=== PATIENT | male | born 1975 | race Caucasian/White ===

== ENCOUNTER 2017-06-24 13:32 | Inpatient (IN) | payer MEDICAID ==
[~2017-06-24] VITALS: Ht 165.1 cm; Wt 45.8 kg
--- NOTE | 2017-06-24 13:32 | NUR ---
Patient BIBA BLS, transferred to bed 4. RN evaluating patient at bedside.
[2017-06-24 13:38] VITALS: BP 148/87
--- NOTE | 2017-06-24 13:38 | NUR ---
Dr. Jimenez evaluating patient at bedside.
--- NOTE | 2017-06-24 13:41 | NUR ---
Patient being evaluated by DR LOUIS at bedside.
[2017-06-24] MEDS ORDERED: NACL 0.9% 1,000 ML IV ONE ×3 (13:50→15:05)
--- NOTE | 2017-06-24 14:02 | NUR ---
LAB AT BEDSIDE
--- NOTE | 2017-06-24 14:13 | NUR ---
technical business analyst at bedside.
[2017-06-24 14:17] LABS: HEMATOCRIT 33.2 % (36-52); MEAN CORPUSCULAR HEMOGLOBIN 27 pg (27-31); MEAN CORPUSCULAR HGB CONC 33 g/dL (33-37); MEAN CORPUSCULAR VOLUME 82 fL (80-94); PLATELET COUNT (AUTO) 229 K/uL (140-450); RED BLOOD CELL COUNT(AUTO) 4.05 MIL/uL (4.20-6.10); RED CELL DISTRIBUTION WIDTH 13.1 % (11.6-13.7); WHITE BLOOD COUNT (AUTO) 11.2 K/uL (4.8-10.8)
[2017-06-24 14:33] LABS: ACETONE, SERUM NEGATIVE (NEGATIVE)
[2017-06-24 14:47] LABS: ALBUMIN 2.7 g/dL (3.4-5.0); ANION GAP 12.8 (8-16); ASPARTATE AMINOTRANSFERASE 44 U/L (15-37); CARBON DIOXIDE 26.8 mmol/L (21-32); CHLORIDE 103 mmol/L (98-107); GFR ARICAN-AMERICAN 106 mL/min (>90); POTASSIUM 4.6 mmol/L (3.5-5.1); SODIUM SERUM 138 mmol/L (136-145); TOTAL BILIRUBIN 0.2 mg/dL (0.0-1.0); UREA NITROGEN, BLOOD 15 mg/dL (7-18)
[2017-06-24 14:48] LABS: GLUCOSE 581 mg/dL (74-106)
[2017-06-24 14:49] LABS: LYMPHOCYTES % (MANUAL) 14 % (20-46); MONOCYTES % (MANUAL) 3 % (5-12)
[2017-06-24] MEDS ORDERED: VANCOMYCIN 1,000 MG in DEXTROSE 5% 250 ML IV ONE (15:05)
[2017-06-24] MEDS ORDERED: LEVOFLOXACIN 750 MG/D5W PREMIX 150 ML IV ONE (15:05)
[2017-06-24 15:10] LABS: APPEARANCE,URINE CLEAR (CLEAR); BILIRUBIN,URINE NEGATIVE (NEGATIVE); BLOOD, URINE 1+ (NEGATIVE); COLOR,URINE YELLOW (YELLOW); LEUKOCYTE ESTERASE ,URINE NEGATIVE (NEGATIVE); NITRITE, URINE NEGATIVE (NEGATIVE); UGLUCOSE 3+ (NEGATIVE)
[2017-06-24 15:15] LABS: BARBITURATE, URINE NEG. ng/ml (NEG <=200); BENZODIAZEPINE, URINE NEG. ng/mL (NEG <=200); CANNABINOID, URINE NEG. ng/mL (NEG <=50); COCAINE, URINE NEG. ng/mL (NEG <=300); OPIATE, URINE NEG. ng/mL (NEG <=2000); PHENCYCLIDINE SCREEN,URINE NEG. ng/mL (NEG <=25)
[2017-06-24 15:17] LABS: RBC,URINE 0-5 /HPF (0-5); WBC,URINE 0-3 /HPF (0-5)
[2017-06-24] MEDS ORDERED: VANCOMYCIN 1,000 MG VIAL ONE (15:22)
[2017-06-24] MEDS ORDERED: LORazepam 2 MG/ML VIAL IVP PRN (15:50)
[2017-06-24] MEDS ORDERED: ACETAMINOPHEN 325 MG TAB PO PRN (15:50)
[2017-06-24] MEDS ORDERED: ONDANSETRON 4 MG/2 ML VIAL IVP PRN (15:50)
[2017-06-24] MEDS ORDERED: LEVOFLOXACIN 750 MG/D5W PREMIX 150 ML IV SCH (15:50)
[2017-06-24] MEDS ORDERED: DEXT 5% /NACL 0.9% 1,000 ML IV SCH (15:50)
[2017-06-24] MEDS ORDERED: DEXTROSE 50% 50 ML SYR IVP PRN (15:50)
--- NOTE | 2017-06-24 16:09 | NUR ---
US AT BEDSIDE
--- NOTE | 2017-06-24 16:40 | NUR ---
RECEIVED REPORT FROM THE ER NURSE. WILL GET ROOM READY AND AWAIT PT'S ARRIVAL.
--- NOTE | 2017-06-24 16:46 | NUR ---
Patient will be admitted to care of DR GARAY. Admited to M/S. Will go to room 120 B. Belongings list completed. Report to EB ACEVES.
[2017-06-24 17:00] VITALS: BP 142/99
--- NOTE | 2017-06-24 17:00 | NUR ---
ARRIVED ON THE UNIT IN A WHEELCHAIR WITH 1 ER NURSE. PT IS AMBULATORY. AMBULATED FROM CHAIR TO BED. PT IS ALERT AND ORIENTED. INTRODUCED OURSELVED AND UPDATED THE BOARD. PT HAS AN IV ON L AC 20G NS BOLUS. ALSO AN IV ON THE R 20G VANCO INFUSING AT 165ML. BOTH IV ARE PATENT AND INTACT. PT C/O OF PAIN IN HIS R SHOULDER AND L LOWER BACK. PT HAS A MULTIPLE SCABS ON BLE AND BUE. THEY ARE INTACT AND HEALED OVER. HE ALSO HAS AN OPEN LACERATION ON THE PLANTAR OF L FOOT AND R FOOT. PT CLAIMS IT'S PAINFUL WHEN WALKING ON THEM. HE ALSO HAS A SCAB ON L LOWER BACK. MRSA SCREENING DONE. NOTED DR. GARAY ORDERED D5NS @ 100ML. WILL PAGE FOR CHANGE OF ORDER D/T PT'S HIGH BS. VS WITHIN NORMAL RANGE. BS 456. WILL CONTINUE WITH ADMISSION PROCESS. Addendum: 06/24/17 at 1753 by Eleonora Stark RN PUT ON YELLOW SOCKS, YELLOW GOWN, YELLOW WRIST BAND, YELLOW SIGN ON DOOR. ALLERGY BAND FOR CEPHALEXIN. BROUGHT HIM A PITCHER OF WATER AND CUP OF COFFEE REQUESTED.
[2017-06-24] MEDS: BLOOD GLUCOSE MONITORING 1 DEV DEV FS SCH ×2 (17:25→17:30)
[2017-06-24] MEDS: NACL 0.9% 1,000 ML IV SCH (18:09)
[2017-06-24] MEDS: INSULIN LISPRO SLIDING SCALE 100 UNITS/ML VIAL SUBQ PRN (18:09)
--- NOTE | 2017-06-24 18:15 | NUR ---
DR Pily JUAREZ SAW AND ASSESSED PT.
--- NOTE | 2017-06-24 19:15 | NUR ---
ENDORSED PT REPORT TO BODY SHOP MECHANIC NURSE AT BEDSIDE FOR CONTINUITY OF CARE. PT IN STABLE CONDITION.
--- NOTE | 2017-06-24 19:30 | NUR ---
RECEIVED REPORT FROM DAY SHIFT NURSE AT BEDSIDE. PT IS ALERT AND ORIENTED X4. PT IS ON ROOM AIR. SKIN NOT INTACT, RIGHT FOOT PLANTAR LACERATION/ULCER, LEFT FOOT PLANTAR LACERATION/ULCER. SALINE LOCK 18 GAUGE IV ON LEFT AC INTACT, AND 20 GAUGE IV ON RIGHT FOREARM RUNNING NS AT 100ML/HR INTACT. PT IS STABLE, THERE ARE NO SIGNS OF DISTRESS. VITAL SIGNS WNL. FAMILY AT BEDSIDE. BED IN LOW POSITION, CALL LIGHT WITHIN REACH. WILL CONTINUE TO MONITOR.
[2017-06-24] MEDS: HYDROcodone/APAP 5/325 MG 1 TAB TAB PO PRN (20:18)
--- NOTE | 2017-06-24 20:19 | NUR ---
NORCO GIVEN FOR 6/10 PAIN IN LEFT LOWER BACK. PT TOLERATED WELL. PT STABLE, FREE OF DISTRESS. BED IN LOW POSITION, CALL LIGHT WITHIN REACH. WILL CONTINUE TO MONITOR.
--- NOTE | 2017-06-24 22:51 | NUR ---
PT EXPRESSED CONCERN FOR HIS MOTHER. THEY ARE BOTH HOMELESS, AND HE HAS NO WAY OF REACHING HER. PT STATED THEY WERE LAST STAYING BEHIND A [address] AND [address]. TOLD PT I WOULD CHECK ON WHAT WE COULD DO ABOUT IT. WAREHOUSE UNLOADER NOT AVAILABLE AT NIGHT. WILL ENDORSE RECOMMENDATION FOR WAREHOUSE UNLOADER TO MORNING SHIFT RN.
[2017-06-25] VITALS: BP 140/90
--- NOTE | 2017-06-25 00:44 | NUR ---
PATIENT IS RESTING, HE IS STABLE AND FREE OF DISTRESS. BED IN LOW POSITION, CALL LIGHT WITHIN REACH. WILL CONTINUE TO MONITOR.
--- NOTE | 2017-06-25 03:50 | NUR ---
NS BAG RAN OUT AT 03:50, NEW NS BAG WAS SET UP AT 03:53 RUNNING AT 100ML/HR. PT IS STABLE, THERE ARE NO SIGNS OF DISTRESS. BED IN LOW POSITION, CALL LIGHT WITHIN REACH. WILL CONTINUE TO MONITOR.
[2017-06-25] MEDS: NACL 0.9% 1,000 ML IV SCH ×3 (03:53→17:14)
[2017-06-25 05:59] LABS: BASOPHILS # (AUTO) 0.2 K/uL (0.00-0.22); BASOPHILS % (AUTO) 2.1 % (0.0-2.0); EOSINOPHILS # (AUTO) 0.4 K/uL (0-0.4); EOSINOPHILS % (AUTO) 3.8 % (0.0-4.0); HEMATOCRIT 31.7 % (36-52); HEMOGLOBIN 10.5 g/dL (12.0-18.0); LYMPHOCYTES # (AUTO) 2.7 K/uL (2.0-11.5); LYMPHOCYTES % (AUTO) 27.5 % (20.5-51.1); MEAN CORPUSCULAR HEMOGLOBIN 27 pg (27-31); MEAN CORPUSCULAR HGB CONC 33 g/dL (33-37); MEAN CORPUSCULAR VOLUME 83 fL (80-94); MONOCYTES # (AUTO) 0.6 K/uL (0.8-1.0); MONOCYTES % (AUTO) 6.4 % (1.7-9.3); NEUTROPHILS # (AUTO) 5.9 K/uL (1.8-7.7); NEUTROPHILS % (AUTO) 60.2 % (42.2-75.2); PLATELET COUNT (AUTO) 203 K/uL (140-450); RED BLOOD CELL COUNT(AUTO) 3.84 MIL/uL (4.20-6.10); RED CELL DISTRIBUTION WIDTH 13.1 % (11.6-13.7); WHITE BLOOD COUNT (AUTO) 9.8 K/uL (4.8-10.8)
[2017-06-25 06:31] LABS: ANION GAP 9.6 (8-16); CARBON DIOXIDE 25.4 mmol/L (21-32); CREATININE 0.6 mg/dL (0.7-1.3)
[2017-06-25] MEDS: BLOOD GLUCOSE MONITORING 1 DEV DEV FS SCH ×4 (06:35→21:04)
[2017-06-25] MEDS: INSULIN LISPRO SLIDING SCALE 100 UNITS/ML VIAL SUBQ PRN ×4 (06:43→21:06)
--- NOTE | 2017-06-25 06:44 | NUR ---
PT BLOOD GLUCOSE LEVEL WAS 217, GAVE 4 UNITS OF INSULIN PER MD SLIDING SCALE. PT IS STABLE, THERE ARE NO SIGNS OF DISTRESS. BED IN LOW POSITION, CALL LIGHT WITHIN REACH. WILL CONTINUE TO MONITOR.
--- NOTE | 2017-06-25 07:20 | NUR ---
ENDORSED PATIENT TO DAY SHIFT NURSE FOR CONTINUITY OF CARE. PT STABLE, WITHOUT SIGNS OF DISTRESS.
[2017-06-25 08:00] VITALS: BP 145/91
--- NOTE | 2017-06-25 09:15 | NUR ---
PT WATCHING TV. ATE 100% OF BREAKFAST. NO COMPLAINTS AT THIS TIME. WILL CONTINUE TO MONITOR PT.
--- NOTE | 2017-06-25 10:58 | NUR ---
PT RESTING COMFORTABLY. NO SIGNS OF DISTRESS. WILL CONTINUE TO MONITOR PT.
--- NOTE | 2017-06-25 13:50 | NUR ---
CHECKED ON PT IN ROOM. PT IS SLEEPING WITH VISIBLE RESPIRATIONS. CALL LIGHT IS WITHIN REACH AND BED WHEELS LOCKED AND IN LOW POSITION. WILL CONTINUE TO MONITOR PT.
[2017-06-25 16:00] VITALS: BP 148/94
--- NOTE | 2017-06-25 16:20 | NUR ---
CHECKED ON PT. PT COMPLAINING OF HEADACHE AND PAIN LEVEL 3/10. ADMINISTERED TYLENOL ORDERED. BS WAS 208. VS ARE WNL. PT ASKED FOR URINAL AND INFORMED HIM HE HAS IT AT BEDSIDE. PT HAS NO OTHER COMPLAINTS AT THIS TIME. WILL CONTINUE TO MONITOR.
[2017-06-25] MEDS ORDERED: LEVOFLOXACIN 750 MG/D5W PREMIX 150 ML IV SCH (17:00)
--- NOTE | 2017-06-25 18:02 | NUR ---
PT RESTING COMFORTABLY, WATCHING TV. NO COMPLAINTS AT THIS TIME. LEVAQUIN STILL RUNNING. PT TOLERATING WELL. WILL CONTINUE TO MONITOR PT.
--- NOTE | 2017-06-25 19:10 | NUR ---
ENDORSED REPORT TO ENVIRONMENTAL PROFESSIONAL NURSE AT BEDSIDE FOR CONTINUITY OF CARE. PT IS AWAKE AND IN STABLE CONDITION.
[2017-06-25 20:00] VITALS: BP 155/97
--- NOTE | 2017-06-25 20:00 | NUR ---
Patient's Plan of Care was discussed and reviewed with STRIPE MARKER: TAMICA GORDILLO
[2017-06-25] MEDS: LISINOPRIL 10 MG TAB PO SCH (20:43)
--- NOTE | 2017-06-25 20:43 | NUR ---
PATIENT TOOK ROUTINE MEDS WELL.WILL CONTINUE TO MONITOR.
--- NOTE | 2017-06-25 23:07 | NUR ---
MD SOLIS CAME AND SAW THE PATIENT HE SPOKE WITH THE PATIENT AND TOOK A LOOK AT THE BOTTOM OF HIS FEET.
--- NOTE | 2017-06-26 00:55 | NUR ---
PATIENT SLEEPING IN BED IVF INFUSING WELL IV SITE PATENT CALL LIGHT WITHIN REACH.
--- NOTE | 2017-06-26 02:07 | NUR ---
PATIENT SLEEPING WELL,IVF INFUSING WELL IV SITE PATENT CALL LIGHT WITHIN REACH.
[2017-06-26] MEDS ORDERED: CLINDAMYCIN 600 MG/4 ML VIAL ONE (04:41)
[2017-06-26] MEDS: NACL 0.9% 1,000 ML IV SCH ×2 (04:51→16:13)
[2017-06-26] MEDS: CLINDAMYCIN 600 MG in DEXTROSE 5% 50 ML IV SCH ×3 (04:56→20:34)
--- NOTE | 2017-06-26 04:56 | NUR ---
PATIENT IS DOING WELL EB CORDERO GAVE CLEOCIN IV ANTIBIOTIC IV AND PATIENT ALSO COMPLAINS OF LOWER BACK PAIN SEVERE PAIN AND EB CORDERO WAS INFORMED SHE WILL MEDICATE THE PATIENT WITH MORPHINE ORDERED.PATIENT GETTING HIS BLOOD DRAWN ALSO AT THIS TIME.NEEDS MET CALL LIGHT WITHIN REACH WILL CONTINUE TO MONITOR.
[2017-06-26] MEDS: MORPHINE SULFATE 2 MG/ML SYR IVP PRN (04:59)
[2017-06-26 05:27] LABS: BASOPHILS # (AUTO) 0.2 K/uL (0.00-0.22); BASOPHILS % (AUTO) 2.4 % (0.0-2.0); EOSINOPHILS # (AUTO) 0.4 K/uL (0-0.4); EOSINOPHILS % (AUTO) 3.9 % (0.0-4.0); HEMATOCRIT 34.4 % (36-52); HEMOGLOBIN 11.3 g/dL (12.0-18.0); LYMPHOCYTES # (AUTO) 2.9 K/uL (2.0-11.5); MEAN CORPUSCULAR HEMOGLOBIN 27 pg (27-31); MEAN CORPUSCULAR HGB CONC 33 g/dL (33-37); MEAN CORPUSCULAR VOLUME 83 fL (80-94); MONOCYTES # (AUTO) 0.5 K/uL (0.8-1.0); MONOCYTES % (AUTO) 5.9 % (1.7-9.3); NEUTROPHILS % (AUTO) 55.8 % (42.2-75.2); PLATELET COUNT (AUTO) 234 K/uL (140-450); RED BLOOD CELL COUNT(AUTO) 4.14 MIL/uL (4.20-6.10)
[2017-06-26 06:04] LABS: ANION GAP 7.4 (8-16); CARBON DIOXIDE 27.9 mmol/L (21-32); CREATININE 0.6 mg/dL (0.7-1.3); POTASSIUM 4.3 mmol/L (3.5-5.1); TOTAL BILIRUBIN 0.2 mg/dL (0.0-1.0)
[2017-06-26 06:10] LABS: CHOL/HDL RATIO 3.3 (1-4.5)
[2017-06-26] MEDS: BLOOD GLUCOSE MONITORING 1 DEV DEV FS SCH ×4 (06:23→20:26)
[2017-06-26] MEDS: INSULIN LISPRO SLIDING SCALE 100 UNITS/ML VIAL SUBQ PRN ×4 (06:29→20:38)
--- NOTE | 2017-06-26 06:54 | NUR ---
PATIENT IS CURRENTLY RESTING IN BED ALERT ORIENTED IVF INFUSING WELL IV SITE PATENT.
--- NOTE | 2017-06-26 07:05 | NUR ---
RECEIVED REPORT FROM CONTACT LENS INSPECTOR NURSE AT BEDSIDE FOR CONTINUITY OF CARE. PT IS AWAKE AND ORIENTED. INTRODUCED SELF AND UPDATED BOARD. WILL CONTINUE TO MONITOR PT.
[2017-06-26 08:00] VITALS: BP 109/67
[2017-06-26] MEDS: LEVOFLOXACIN 500 MG TAB PO SCH (09:31)
--- NOTE | 2017-06-26 10:17 | NUR ---
WOUND CARE NOTE: REASON FOR EVALUATION: DIABETIC WOUNDS COMPLETE SKIN ASSESSMENT DONE ON THIS 42 Y/O MALE PATIENT TO [facility], WITH INITIAL DIAGNOSIS OF C/O MILD TO MODERATE PAIN ON BLE WITH CELLULITIS. PAST MEDICAL HISTORY INCLUDE DM, ANAEMIA, SEPSIS, CELLULITIS, DIABETIC FOOT ULCERS, APPENDECTOMY AND INGUINAL HERNIA REPAIR. ALL ABOVE INFORMATION WAS OBTAINED FROM THE ADMISSION H&P. LABS 06/26/17 ARE WBC 90., H/H 11.3/34.4, GLUCOSE 1.1, ALBUMIN 2.0. CURRENT MEDS INCLUDE LEVOFLOXACIN, CLINDAMYCIN, LISINOPRIL, LISPRO INSULIN, LORAZEPAM AND HYDROCODONE. PATIENT IS AAOX4. SKIN WARM TO TOUCH WNL, TOENAILS ARE SLIGHTLY THICKENED, BLE NO EDEMA, WITH HAIR GROWTH AND +2 BILATERAL PEDAL PULSES STRONG.CAPILLARY REFILL <3 SEC. BOWEL AND BLADDER CONTINENT. PT. ABLE TO TURN AND REPOSITION BY HIMSELF. INITIAL PLAN OF CARE, DIABETIC FOOT CARE AND PRESSURE ULCER PREVENTIVE MEASURES DISCUSSED WITH PT. PT. ABLE TO VERBALIZE UNDERSTANDING INTEGUMENTARY: BUE - OLD DRY SCABS - SCATTERED BLE - OLD DRY SCABS - SCATTERED RIGHT HEEL - BLANCHABLE REDNESS LEFT HEEL - BLANCHABLE REDNESS TIP OF LEFT GREAT TOE- DRY BLISTER LEFT PLANTAR- QUESTION OF RE -OPEN / UNHEALED DIABETIC ULCER (PER PT. HX OF DEBRIDEMENT FEW MONTHS BACK) BASE OF RIGHT 5TH TOE- QUESTION OF RE -OPEN / UNHEALED DIABETIC ULCER (PER PT. HX OF DEBRIDEMENT FEW MONTHS BACK) RECOMMENDATIONS: -CLEANSE BASE OF RIGHT 5TH TOE DIABETIC ULCER WITH NS, PAT DRY. PAINT WITH BETADINE SOLUTION AND LEAVE VOCATIONAL AUTO BODY INSTRUCTOR -CLEANSE LEFT PLANTAR DIABETIC ULCER WITH NS, PAT DRY. PAINT WITH BETADINE SOLUTION AND LEAVE MOUNA -BU/BL EXTREMITIES DRY SCABS, AND LEFT GREAT TOE DRY BLISTER,KEEP DRY AND CLEAN AND OPEN TO THE AIR -TURN AND REPOSITION PATIENT Q2H -ASSESS AND MONITOR SKIN CONDITION DURING POSITION CHANGE, PLEASE PAY PARTICULAR ATTENTION TO HEELS -OFFLOAD BILATERAL HEELS BY PLACING PILLOWS UNDER CALVES AT ALL TIMES, UNLESS OTHERWISE CONTRAINDICATED -KEEP SKIN CLEAN AND DRY AT ALL TIMES. -RD CONSULT LOW ALBUMIN LEVEL -PCB DESIGNER CONSULT IF ORDER BY MD. RECOMMENDATIONS DISCUSSED WITH PRIMARY RN AND DR. GARAY. WILL FOLLOW UP PATIENT Q7-10 DAYS AND PRN. PLEASE CONTACT [facility] FOR ANY CONCERNS, QUESTIONS AND CHANGES IN SKIN CONDITION. Addendum: 06/26/17 at 1114 by eNlda Gant RN (Grace) -CLEANSE BASE OF RIGHT 5TH TOE DIABETIC ULCER WITH NS, PAT DRY. PAINT WITH BETADINE SOLUTION AND LEAVE MOUNA BID -CLEANSE LEFT PLANTAR DIABETIC ULCER WITH NS, PAT DRY. PAINT WITH BETADINE SOLUTION AND LEAVE VOCATIONAL AUTO BODY INSTRUCTOR BID
--- NOTE | 2017-06-26 11:30 | NUR ---
PATIENT HAS BEEN SCREENED AND CATEGORIZED HIGH NUTRITION RISK. PATIENT WILL BE SEEN WITHIN 1-2 DAYS OF ADMISSION. 06/25/17-06/26/[address]
[2017-06-26] MEDS: NACL 0.9% IRR 250 ML BOTTLE IR SCH (12:30)
--- NOTE | 2017-06-26 12:30 | NUR ---
PT WAS JUST SEEN BY SOCIAL SERVICE. CHECKED ON PT AND BS WAS 238. ADMINISTERED 4UNITS OF INSULIN SUBQ. NON-ADMINISTERED NS IRR 250ML BOTTLE FOR FOOT. AWARE THAT WOUND CARE NURSE CAME IN AND ALREADY CLEANSED LEFT PLANTAR AND RIGHT BASE OF 5TH TOE AREA WITH NS, PATTED DRY AND PAINTED WITH BETADINE SOLUTION. LEFT BOOT TURNER. PT DENIES PAIN AND IS EATING LUNCH AT BEDSIDE AND REQUESTED FOR COFFEE. NO OTHER COMPLAINTS AT THIS TIME. WILL CONTINUE TO MONITOR.
--- NOTE | 2017-06-26 14:10 | NUR ---
06/26/17 RD INITIAL ASSESSMENT COMPLETED PLEASE REFER TO NUTRITION ASSESSMENT UNDER CARE ACTIVITY FOR ESTIMATED NUTRITIONAL NEEDS. 1. CONTINUE CARDIAC, 60G CONSISTENT CARBOHYDRATE DIET 2. ADD VITAMIN C SUPPLEMENT 250 MG 1X/DAILY (FOR WOUND HEALING) 3. RD TO FOLLOW-UP 3-5 DAYS, MODERATE RISK LUCERO MORGAN, BRIANA
[2017-06-26 16:00] VITALS: BP 129/86
--- NOTE | 2017-06-26 16:15 | NUR ---
CHECKED ON PT IN ROOM. NS BAG FINISHED. CHANGED TO NEW NS 1,000ML BAG IV @100ML/HR. PT REQUESTING TO TAKE SHOWER. WILL ASSIST PT TO SHOWER BEFORE DINNER.
--- NOTE | 2017-06-26 17:41 | NUR ---
DR. TSANG FROM [employer] IS HERE. I ASKED ABOUT PT'S DIABETIC ULCERS. SHE WILL SEE PT. NOTIFIED HER THAT BONE SCAN IS STILL PENDING FOR 06/27. AWARE.
--- NOTE | 2017-06-26 19:20 | NUR ---
ENDORSED PLAN OF CARE TO COMPLIANCE ENGINEER NURSE AT BEDSIDE FOR CONTINUITY OF CARE. PT IS AWAKE AND IN STABLE CONDITION.
--- NOTE | 2017-06-26 19:21 | NUR ---
RECEIVED REPORT FROM DAY RN FOR CONTINUITY OF CARE. PATIENT IS ALERT AND ORIENTED X4, DISCUSSED PLAN OF CARE WITH PATIENT, VERBALIZED UNDERSTANDING. SHIFT ASSESSMENT DONE, VITAL SIGNS STABLE AT THIS TIME. NO RESPIRATORY DISTRESS NOTED ON ROOM AIR. PATIENT DENIES PAIN AT THIS TIME. IV TO LT AC AND RT FA PATENT AND FLUSHED. EMPTIED URINAL AT BEDSIDE WITH 350 ML URINE. PATIENT HAS BILATERAL DIABETIC FOOT ULCERS. SAFETY PRECAUTIONS ENFORCED, CALL LIGHT WITHIN REACH AND PATIENT ENCOURAGED TO USE FOR ASSISTANCE, WILL CONTINUE TO MONITOR.
[2017-06-26 20:00] VITALS: BP 137/93
[2017-06-26] MEDS: LISINOPRIL 10 MG TAB PO SCH (20:34)
--- NOTE | 2017-06-26 20:34 | NUR ---
DUE MEDICATIONS ADMINISTERED, TOLERATED WELL AND VERBALIZED UNDERSTANDING OF USE, PATIENT C/O LOWER BACK PAIN, WILL MEDICATE ORDERED. SAFETY PRECAUTIONS ENFORCED, CALL LIGHT WITHIN REACH. WILL CONTINUE TO MONITOR.
[2017-06-26] MEDS: HYDROcodone/APAP 5/325 MG 1 TAB TAB PO PRN (21:07)
--- NOTE | 2017-06-26 22:15 | NUR ---
PATIENT ASLEEP AT THIS TIME, NO DISTRESS OR DISCOMFORT NOTED. CALL LIGHT WITHIN REACH, WILL CONTINUE TO MONITOR.
[2017-06-27] VITALS: BP 115/75
--- NOTE | 2017-06-27 00:05 | NUR ---
VITAL SIGNS STABLE, PATIENT RESTING IN BED NO DISTRESS OR DISCOMFORT NOTED. EMPTIED 700 ML LIGHT YELLOW URINE FROM URINAL. CALL LIGHT WITHIN REACH.
[2017-06-27] MEDS: NACL 0.9% IRR 250 ML BOTTLE IR SCH ×2 (01:32→13:00)
--- NOTE | 2017-06-27 02:45 | NUR ---
PATIENT ASLEEP, EMPTIED 1000 ML FROM URINAL, REPLACED IVF. NO DISTRESS OR DISCOMFORT NOTED. WILL CONTINUE TO MONITOR.
[2017-06-27] MEDS: NACL 0.9% 1,000 ML IV SCH ×2 (03:24→15:54)
[2017-06-27] MEDS: CLINDAMYCIN 600 MG in DEXTROSE 5% 50 ML IV SCH ×3 (04:55→20:41)
--- NOTE | 2017-06-27 04:55 | NUR ---
DUE ANTIBIOTICS ADMINISTERED, PATIENT AWAKE AT THIS TIME, RESTING IN BED NO DISTRESS OR DISCOMFORT NOTED. CALL LIGHT WITHIN REACH.
[2017-06-27 05:23] LABS: HEMATOCRIT 34.4 % (36-52); HEMOGLOBIN 10.8 g/dL (12.0-18.0); MEAN CORPUSCULAR HEMOGLOBIN 26 pg (27-31); MEAN CORPUSCULAR HGB CONC 32 g/dL (33-37); MEAN CORPUSCULAR VOLUME 84 fL (80-94); PLATELET COUNT (AUTO) 240 K/uL (140-450); RED BLOOD CELL COUNT(AUTO) 4.12 MIL/uL (4.20-6.10); RED CELL DISTRIBUTION WIDTH 13.4 % (11.6-13.7); WHITE BLOOD COUNT (AUTO) 7.6 K/uL (4.8-10.8)
[2017-06-27] MEDS: BLOOD GLUCOSE MONITORING 1 DEV DEV FS SCH ×4 (05:43→20:47)
[2017-06-27 06:10] LABS: ANION GAP 9.7 (8-16); CARBON DIOXIDE 27.8 mmol/L (21-32); CREATININE 0.6 mg/dL (0.7-1.3); POTASSIUM 4.5 mmol/L (3.5-5.1)
[2017-06-27] MEDS: INSULIN LISPRO SLIDING SCALE 100 UNITS/ML VIAL SUBQ PRN ×4 (06:13→20:50)
[2017-06-27 06:44] LABS: EOSINOPHILS % (MANUAL) 4 % (0-4); LYMPHOCYTES % (MANUAL) 37 % (20-46); MONOCYTES % (MANUAL) 3 % (5-12)
--- NOTE | 2017-06-27 07:18 | NUR ---
ENDORSED PATIENT TO DAY RN FOR CONTINUITY OF CARE, PATIENT IS IN STABLE CONDITION.
--- NOTE | 2017-06-27 07:20 | NUR ---
RECEIVED REPORT FROM TRACTOR CRANE ENGINEER RN. PT IS STABLE ON ROOM AIR. PT HAS LEFT AC 18 GAUGE IV (SALINE LOCK) INTACT, AND A RIGHT FOREARM 20 GAUGE IV RUNNING NS AT 100ML/HR, INTACT. PT HAS BILATERAL FOOT ULCERS. PLAN OF CARE WAS DISCUSSED WITH PT, AND PT VERBALIZED UNDERSTANDING. PT SHOWS NO SIGNS OF DISTRESS. BED IN LOW POSITION, CALL LIGHT WITHIN REACH. WILL CONTINUE TO MONITOR.
[2017-06-27 08:00] VITALS: BP 124/91
[2017-06-27] MEDS: LEVOFLOXACIN 500 MG TAB PO SCH (08:38)
--- NOTE | 2017-06-27 08:40 | NUR ---
AM SCHEDULED MEDICATION GIVEN. PT TOLERATED WELL. PT IS STABLE, NO SIGNS OF DISTRESS NOTED. BED IN LOW POSITION, CALL LIGHT WITHIN REACH. WILL CONTINUE TO MONITOR.
--- NOTE | 2017-06-27 10:10 | NUR ---
SUPERVISOR CUSTOMER RECORDS DIVISION TOOK PT FOR BONE SCAN OF THE RIGHT FOOT.
--- NOTE | 2017-06-27 10:55 | NUR ---
PT BROUGHT BACK FROM BONE SCAN. PT STABLE, NO SIGNS OF DISTRESS NOTED. BED IN LOW POSITION, CALL LIGHT WITHIN REACH. WILL CONTINUE TO MONITOR.
--- NOTE | 2017-06-27 12:45 | NUR ---
DR GARAY TALKING TO PT AT BEDSIDE.
--- NOTE | 2017-06-27 13:00 | NUR ---
PERFORMED WOUND CARE ON BOTH OF PT'S FEET, PT TOLERATED WELL. PT FEET ARE MOUNA. PT STABLE, NO SIGNS OF DISTRESS NOTED. BED IN LOW POSITION, CALL LIGHT WITHIN REACH. WILL CONTINUE TO MONITOR.
[2017-06-27] MEDS: MORPHINE SULFATE 2 MG/ML SYR IVP PRN (13:08)
--- NOTE | 2017-06-27 13:25 | NUR ---
PT BACK FROM BONE SCAN. PT BACK IN BED. PT IS STABLE, NO SIGNS OF DISTRESS NOTED. BED IN LOW POSITION, CALL LIGHT WITHIN REACH. WILL CONTINUE TO MONITOR. Addendum: 06/27/17 at 1531 by Lisbet Ontiveros RN WRONG TIME. PLEASE DISREGARD
--- NOTE | 2017-06-27 14:05 | NUR ---
ELECTRICAL ACCESSORIES II ASSEMBLER TOOK PT FOR 2ND ROUND OF SCAN. PT TRANSPORTED VIA WHEELCHAIR. PT IN STABLE CONDITION.
--- NOTE | 2017-06-27 15:25 | NUR ---
PT BACK FROM BONE SCAN. PT BACK IN BED. PT IS STABLE, NO SIGNS OF DISTRESS NOTED. BED IN LOW POSITION, CALL LIGHT WITHIN REACH. WILL CONTINUE TO MONITOR.
[2017-06-27 16:00] VITALS: BP 102/62
[2017-06-27] MEDS: metFORMIN 500 MG TAB PO SCH (16:27)
--- NOTE | 2017-06-27 17:44 | NUR ---
ENDORSED PATIENT TO JONATAN (RN) AND ASHLEY (RN). PT IS STABLE.
--- NOTE | 2017-06-27 17:44 | NUR ---
RECEIVED REPORT FROM EB PALAFOX FOR CONTINUITY OF CARE. PT AAOX4. INITIAL ASSESSMENT DONE. RESP EVEN AND UNLABORED. SKIN IS WARM AND DRY. NO S/S OF DISTRESS, RESTLESSNESS OR SOB. PT DENIES ANY NEEDS AT THIS TIME. PLAN OF CARE DISCUSSED WITH THE PT. PT VERBALIZED UNDERSTANDING. SAFETY MEASURES IN PLACED. SIDE RAILS UP, BED ON LOW POSITION, CALM LIGHT WITHIN REACH. WILL CONTINUE TO MONITOR.
--- NOTE | 2017-06-27 19:19 | NUR ---
ENDORSED TO PM NURSE FOR CONTINUITY OF CARE. PT IS STABLE.
--- NOTE | 2017-06-27 19:20 | NUR ---
RECEIVED REPORT FROM AM NURSE. PATIENT IS AOX4, NO COMPLAINTS OF PAIN, NO S/S OF DISTRESS. WITH AN IV ON THE LEFT AC 18 G, INTACT AND PATENT, SALINE LOCK. WITH AN IV TO THE RIGHT AC 18 G, INTACT AND PATENT. NOTED WITH BILATERAL DIABETIC FOOT ULCERS. INITIAL ASSESSMENT DONE. REORIENTED PATIENT TO THE UNIT, VERBALIZED UNDERSTANDING. WILL CONTINUE TO MONITOR. ALL NEEDS ATTENDED. CALL LIGHT WITHIN REACH. SAFETY CHECKS IN PLACE.
[2017-06-27 20:38] VITALS: BP 122/82
[2017-06-27] MEDS: LISINOPRIL 10 MG TAB PO SCH (20:40)
--- NOTE | 2017-06-27 20:50 | NUR ---
DUE MEDS GIVEN, WELL TOLERATED BY PATIENT. BLOOD SUGAR OF 242, GAVE 4 UNITS. REFUSED SIMVASTATIN, EXPLAINED THE BENEFITS OF THE MEDICATION, STILL REFUSED MEDICATION. WILL CONTINUE TO MONITOR.
[2017-06-27] MEDS ORDERED: SIMVASTATIN 10 MG TAB PO SCH (21:00)
[2017-06-27 23:59] VITALS: BP 119/86
--- NOTE | 2017-06-28 | NUR ---
VITAL SIGNS STABLE. NO S/S OF DISTRESS. NO COMPLAINTS OF PAIN. WILL CONTINUE TO MONITOR. ALL NEEDS ATTENDED. CALL LIGHT WITHIN REACH. SAFETY CHECKS IN PLACE.
[2017-06-28] MEDS: NACL 0.9% IRR 250 ML BOTTLE IR SCH ×2 (01:00→13:54)
--- NOTE | 2017-06-28 02:00 | NUR ---
MADE ROUNDS, PT ASLEEP. NO S/S OF DISTRESS. WILL CONTINUE TO MONITOR FOR ANY CHANGES.
[2017-06-28] MEDS: NACL 0.9% 1,000 ML IV SCH ×2 (02:13→12:39)
--- NOTE | 2017-06-28 04:00 | NUR ---
MADE ROUNDS, PT ASLEEP NO S/S OF DISTRESS. WILL CONTINUE TO MONITOR
[2017-06-28] MEDS ORDERED: CLINDAMYCIN 600 MG/4 ML VIAL ONE (04:39)
[2017-06-28] MEDS: CLINDAMYCIN 600 MG in DEXTROSE 5% 50 ML IV SCH ×2 (04:44→12:44)
[2017-06-28 05:49] LABS: BASOPHILS # (AUTO) 0.2 K/uL (0.00-0.22); EOSINOPHILS # (AUTO) 0.3 K/uL (0-0.4); EOSINOPHILS % (AUTO) 4.1 % (0.0-4.0); LYMPHOCYTES # (AUTO) 2.9 K/uL (2.0-11.5); LYMPHOCYTES % (AUTO) 36.7 % (20.5-51.1); MEAN CORPUSCULAR HEMOGLOBIN 28 pg (27-31); MEAN CORPUSCULAR HGB CONC 33 g/dL (33-37); MEAN CORPUSCULAR VOLUME 84 fL (80-94); MONOCYTES # (AUTO) 0.5 K/uL (0.8-1.0); MONOCYTES % (AUTO) 6.3 % (1.7-9.3); NEUTROPHILS % (AUTO) 50.9 % (42.2-75.2); PLATELET COUNT (AUTO) 229 K/uL (140-450); RED BLOOD CELL COUNT(AUTO) 3.95 MIL/uL (4.20-6.10); RED CELL DISTRIBUTION WIDTH 13.2 % (11.6-13.7); WHITE BLOOD COUNT (AUTO) 7.9 K/uL (4.8-10.8)
[2017-06-28 06:08] LABS: ANION GAP 8.4 (8-16); CARBON DIOXIDE 28.8 mmol/L (21-32); CREATININE 0.7 mg/dL (0.7-1.3); POTASSIUM 4.2 mmol/L (3.5-5.1)
[2017-06-28] MEDS: INSULIN LISPRO SLIDING SCALE 100 UNITS/ML VIAL SUBQ PRN ×2 (06:31→12:15)
[2017-06-28] MEDS: BLOOD GLUCOSE MONITORING 1 DEV DEV FS SCH ×2 (06:32→12:13)
--- NOTE | 2017-06-28 07:14 | NUR ---
ENDORSED TO AM SHIFT NURSE FOR CONTINUITY CARE, IN STABLE CONDITION
--- NOTE | 2017-06-28 07:20 | NUR ---
Patient's Plan of Care was discussed and reviewed with JOHN PAUL: LM Cervantes LVN
[2017-06-28 08:00] VITALS: BP 116/77
[2017-06-28] MEDS: metFORMIN 500 MG TAB PO SCH (08:39)
[2017-06-28] MEDS: LEVOFLOXACIN 500 MG TAB PO SCH (08:39)
[2017-06-28] MEDS ORDERED: PIOGLITAZONE 30 MG TAB PO SCH (09:00)
--- NOTE | 2017-06-28 12:46 | NUR ---
GEOFFREY KENNEDY CAME, CHECKED PT. CHART AND SEEN PT..
[2017-06-28] MEDS ORDERED: METF10002 PO (13:03)
[2017-06-28] MEDS ORDERED: LEVO500T22 PO (13:03)
[2017-06-28] MEDS ORDERED: PIOG30TA6 PO (13:03)
[2017-06-28] MEDS ORDERED: ACET-9525 PO (13:03)
[2017-06-28] MEDS ORDERED: SIMV10TA6 PO (13:03)
[2017-06-28] MEDS ORDERED: LISI10TA11 PO (13:03)
[2017-06-28] MEDS ORDERED: CLIN300C2 PO (13:07)
--- NOTE | 2017-06-28 13:45 | NUR ---
EXPLAINED ABOUT MD D/C ORDER, D/C INSTRUCTION AND TEACHING, FOLLOW-UP WITH GEOFFREY KENNEDY OR PRIMARY CARE PHYSICIAN IN 1 WEEK, WOUND CARE TEACHING, DM TEACHING, MD D/C PRESCRIPTION LIST EDUCATION, DIET, PAIN MANAGEMENT TEACHING, DISEASE MANAGEMENT TEACHING. VERBALIZED UNDERSTANDING.
--- NOTE | 2017-06-28 16:07 | NUR ---
D/C VIA WHEELCHAIR, AWAKE, ALERT, AND ORIENTED X4. SPEECH CLEAR. NO C/O PAIN. NO SOB, NOTED. IN STABLE CONDITION. PT. TRANSPORT WAS YELLOW CAB WITH BODY NUMBER #[id number] THAT WAS ARRANGED BY PT. STEPFATHER. INFORMED CHARGE NURSE EDGARD TATE.
== END 2017-06-28 16:07 | disposition home or self-care (01) | DRG 720 ==
LOC: MED 13:32 → MTU 16:02
PROVIDERS: ADMIT Preventive Medicine Preventive Medicine/Occupational Environmental Medicine; ATTEND Preventive Medicine Preventive Medicine/Occupational Environmental Medicine
DX: A41.9 Sepsis, unspecified organism (principal); E43 Unspecified severe protein-calorie malnutrition; E11.621 Type 2 diabetes mellitus with foot ulcer; L97.529 Non-pressure chronic ulcer of other part of left foot with unspecified severity; R07.89 Other chest pain; R74.0 Nonspecific elevation of levels of transaminase and lactic acid dehydrogenase [LDH]; E78.5 Hyperlipidemia, unspecified; E83.51 Hypocalcemia; K76.0 Fatty (change of) liver, not elsewhere classified; K52.9 Noninfective gastroenteritis and colitis, unspecified; L03.115 Cellulitis of right lower limb; M54.5 Low back pain; G89.29 Other chronic pain; E11.65 Type 2 diabetes mellitus with hyperglycemia; D64.9 Anemia, unspecified; L97.519 Non-pressure chronic ulcer of other part of right foot with unspecified severity; Z59.0 Homelessness; Z68.1 Body mass index [BMI] 19.9 or less, adult; Z91.19 Patient's noncompliance with other medical treatment and regimen; Z90.49 Acquired absence of other specified parts of digestive tract; Z88.1 Allergy status to other antibiotic agents
CPT/HCPCS: 36415; 71010; 73630; 76705; 78315; 80048; 80053; 80305; 81001; 82009; 82948; 83605; 84484; 85025; 85651; 86140; 87040; 87081; 96361; 96365; 96375; 99285; J1815; J1956; J2270; J3370; J3490; J7030; J7042; J7060; Q0092

== ENCOUNTER 2019-03-28 21:25 | Inpatient (IN) | payer MEDICAID, OTHER ==
[~2019-03-28] VITALS: Ht 165.1 cm; Wt 63.5 kg
[~2019-03-28 21:25] MED LIST: ACET-9525 PO; ACT30 PO; CLIN300C2 PO; LEVO500T2 PO; LISI10TA11 PO; METF-1022 PO; SIMV10TA6 PO
[2019-03-28 21:49] VITALS: BP 133/87
--- NOTE | 2019-03-28 22:38 | NUR ---
PT BIBA WHEELCHAIR TO ER BED 6
[2019-03-28 22:53] LABS: BASOPHILS # (AUTO) 0.2 K/uL (0.00-0.22); BASOPHILS % (AUTO) 1.4 % (0.0-2.0); EOSINOPHILS # (AUTO) 0.1 K/uL (0-0.4); EOSINOPHILS % (AUTO) 0.4 % (0.0-4.0); HEMATOCRIT 27.1 % (36-52); HEMOGLOBIN 8.8 g/dL (12.0-18.0); LYMPHOCYTES # (AUTO) 1.2 K/uL (2.0-11.5); LYMPHOCYTES % (AUTO) 9.8 % (20.5-51.1); MEAN CORPUSCULAR HEMOGLOBIN 27 pg (27-31); MEAN CORPUSCULAR HGB CONC 33 g/dL (33-37); MEAN CORPUSCULAR VOLUME 83.4 fL (80-94); MONOCYTES # (AUTO) 0.6 K/uL (0.8-1.0); MONOCYTES % (AUTO) 4.6 % (1.7-9.3); NEUTROPHILS # (AUTO) 10.4 K/uL (1.8-7.7); NEUTROPHILS % (AUTO) 83.8 % (42.2-75.2); PLATELET COUNT (AUTO) 522 K/uL (140-450); RED BLOOD CELL COUNT(AUTO) 3.25 MIL/uL (4.20-6.10); RED CELL DISTRIBUTION WIDTH 14.3 % (11.6-13.7); WHITE BLOOD COUNT (AUTO) 12.4 K/uL (4.8-10.8)
--- NOTE | 2019-03-28 23:00 | NUR ---
44 YO M BIB MOTHER PRESENTS TO ED WITH MULTIPLE COMPLAINTS INCLUDING CHRONIC DIARRHEA AND CHRONIC GENERALIZED BODY PAIN. PT AND MOTHER ARE POOR HISTORIANS. PT'S MOTHER STATES THAT "HE IS WASTING AWAY AND CAN'T KEEP ANY NUTRIENTS DOWN." PT HAS DIFFICULTY ANSWERING QUESTIONS. PT REPORTS 10/10 BURNING PAIN TO LOWER BACK PAIN AND UPPER AND LOWER EXTREMETIES. PT DENIES N/V. LAST WATERY BM WAS TODAY. DENIES ABD PAIN. PT REPORTS SELF-MEDICATING WITH MARIJUANA FOR PAIN. LAST USE: TODAY. PT DENIES OTHER REC DRUG USE BUT STATES THAT "THEY MIGHT FIND METH" IN HIS URINE. -- PT APPEARS DROWSY, PRESENTS WITH GENERALIZED WEAKNESS. REQUIRES WC ASSISTANCE. ALERT, ORIENTED X 4. COOPERATIVE, SLIGHTLY AGITATED. -- PT APPEARS THIN, MALNOURISHED. POOR HYGIENE NOTED. SKIN PALE, WARM, DRY. BREATHING EVEN/UNLABORED. PMH-- DMII, POORLY CONTROLLED, HTN. RX-- PT STATES HE REQUIRES MEDICATIONS BUT DOESN'T TAKE THEM REGULARLY BECAUSE HE "CAN'T GET TO WHERE HE NEEDS TO GO".
[2019-03-28 23:08] LABS: ALBUMIN 0.9 g/dL (3.4-5.0); ANION GAP 5.8 (8-16); CARBON DIOXIDE 30.5 mmol/L (21-32); CREATININE 1.2 mg/dL (0.7-1.3); POTASSIUM 4.3 mmol/L (3.5-5.1); TOTAL BILIRUBIN 0.1 mg/dL (0.0-1.0)
[2019-03-28] MEDS ORDERED: NACL 0.9% 1,000 ML IV ONE ×2 (23:15→23:55)
--- NOTE | 2019-03-28 23:15 | NUR ---
CRITICAL LAB REPORTED: GLUCOSE- 687. DR. JONES NOTIFIED. AWAITING ORDERS.
[2019-03-28] MEDS ORDERED: INSULIN REGULAR, HUMAN 100 UNIT/ML VIAL IVP ONE (23:55)
[2019-03-28] MEDS ORDERED: ONDANSETRON 4 MG/2 ML VIAL IVP ONE (23:55)
--- NOTE | 2019-03-29 00:15 | NUR ---
PT RECEIVED 10 UNITS OF REGULAR INSULIN. WILL CONTINUE TO MONITOR BS.
--- NOTE | 2019-03-29 00:23 | NUR ---
PT RESTING IN BED O2 SAT AT 91 % 02 APPLIED VIA NASAL CANULA , PT TOLERATING WELL AT 99%.
--- NOTE | 2019-03-29 01:00 | NUR ---
PT IS SLEEPING. VSS. BREATHING EVEN/UNLABORED. NO S/SX DISTRESS AT THIS TIME.
--- NOTE | 2019-03-29 01:20 | NUR ---
NEW BS: 581. DR. JONES NOTIFIED. FLUID BOLUS ORDERED.
[2019-03-29] MEDS ORDERED: NACL 0.9% 1,000 ML IV ONE ×2 (01:35→04:40)
--- NOTE | 2019-03-29 02:00 | NUR ---
PT IS SLEEPING. VSS. BREATHING EVEN/UNLABORED. NO S/SX DISTRESS AT THIS TIME.
--- NOTE | 2019-03-29 03:30 | NUR ---
NEW BS: 468. PT IS SLEEPING COMFORTABLE. VSS. BREATHING EVEN/UNLABORED. NO S/SX DISTRESS AT THIS TIME.
--- NOTE | 2019-03-29 04:45 | NUR ---
PT TAKEN TO RR VIA WC ASSIST. PT REPORTS HAVING BM AND LARGE VOID.
--- NOTE | 2019-03-29 05:00 | NUR ---
PT IS SLEEPING. VSS. BREATHING EVEN/UNLABORED. NO S/SX DISTRESS AT THIS TIME.
[2019-03-29] MEDS ORDERED: MORPHINE SULFATE 2 MG/ML SYR IVP PRN (05:20)
[2019-03-29] MEDS ORDERED: DOCUSATE SODIUM 100 MG GELCAP PO PRN (05:20)
[2019-03-29] MEDS ORDERED: ACETAMINOPHEN 325 MG TAB PO PRN (05:20)
[2019-03-29] MEDS ORDERED: ZOLPIDEM 5 MG TAB PO PRN (05:20)
[2019-03-29] MEDS ORDERED: LORazepam 2 MG/ML VIAL IM/IVP PRN (05:20)
[2019-03-29 06:53] LABS: ANION GAP 5.7 (8-16); CARBON DIOXIDE 30.2 mmol/L (21-32); CREATININE 0.9 mg/dL (0.7-1.3); POTASSIUM 3.9 mmol/L (3.5-5.1)
[2019-03-29 06:54] LABS: BASOPHILS # (AUTO) 0.1 K/uL (0.00-0.22); BASOPHILS % (AUTO) 0.5 % (0.0-2.0); EOSINOPHILS # (AUTO) 0.1 K/uL (0-0.4); EOSINOPHILS % (AUTO) 0.7 % (0.0-4.0); HEMATOCRIT 26.8 % (36-52); HEMOGLOBIN 9.1 g/dL (12.0-18.0); LYMPHOCYTES # (AUTO) 1.5 K/uL (2.0-11.5); LYMPHOCYTES % (AUTO) 15.8 % (20.5-51.1); MEAN CORPUSCULAR HEMOGLOBIN 28 pg (27-31); MEAN CORPUSCULAR HGB CONC 34 g/dL (33-37); MEAN CORPUSCULAR VOLUME 82.2 fL (80-94); MONOCYTES # (AUTO) 0.4 K/uL (0.8-1.0); MONOCYTES % (AUTO) 4.2 % (1.7-9.3); NEUTROPHILS # (AUTO) 7.6 K/uL (1.8-7.7); NEUTROPHILS % (AUTO) 78.8 % (42.2-75.2); PLATELET COUNT (AUTO) 479 K/uL (140-450); RED BLOOD CELL COUNT(AUTO) 3.26 MIL/uL (4.20-6.10); RED CELL DISTRIBUTION WIDTH 14.2 % (11.6-13.7); WHITE BLOOD COUNT (AUTO) 9.7 K/uL (4.8-10.8)
[2019-03-29 06:56] LABS: PROTHROMBIN TIME 9.8 secs (10.8-13.4)
[2019-03-29 06:58] LABS: CHOL/HDL RATIO 4.2 (1-4.5); MAGNESIUM 1.6 mg/dL (1.8-2.4); PHOSPHORUS 2.6 mg/dL (2.5-4.9); THYROID STIMULATING HORMONE 1.75 uIU/mL (0.34-3.74)
--- NOTE | 2019-03-29 07:05 | NUR ---
Patient will be admitted to care of Dr. Onofre. Admited to TELE. Will go to room 106A. Belongings list completed. Report to EB Spangler.
--- NOTE | 2019-03-29 07:18 | NUR ---
RECEIVED BEDSIDE REPORT FROM ED RN. PT IN STABLE CONDITION. SLEEPING IN BED, AROUSABLE BY VOICE. AOX3. NO C/O PAIN OR DISCOMFORT. NO S/S DISTRESS. RESPIRATIONS EVEN AND UNLABORED. HEART RHYTHM REGULAR. ACTIVE BS IN ALL QUADRANTS. ABDOMEN SOFT AND NON-DISTENDED. SKIN INTACT- LEFT ELBOW SCAB. PER ED RN, PT IS AMBULATORY WITH ASSIST. IV SITE PATENT AND ASYMPTOMATIC. ALL SAFETY PRECAUTIONS IN PLACE, WILL CONTINUE TO MONITOR.
[2019-03-29] MEDS ORDERED: BLOOD GLUCOSE MONITORING 1 DEV DEV FS SCH (07:30)
[2019-03-29 08:00] VITALS: BP 121/93
--- NOTE | 2019-03-29 08:16 | NUR ---
PATIENT HAS BEEN SCREENED AND CATEGORIZED HIGH NUTRITION RISK. PATIENT WILL BE SEEN WITHIN 1-2 DAYS OF ADMISSION. 03/29/19-03/30/[address]
[2019-03-29] MEDS: LEVOFLOXACIN 750 MG/D5W PREMIX 150 ML IV SCH (08:31)
[2019-03-29] MEDS: NACL 0.9% 1,000 ML IV SCH ×2 (08:31→15:16)
[2019-03-29] MEDS: INSULIN LISPRO SLIDING SCALE 100 UNITS/ML VIAL SUBQ PRN ×3 (08:46→16:07)
--- NOTE | 2019-03-29 08:56 | NUR ---
OBTAINED STOOL SAMPLE, WILL SEND TO LAB. Addendum: 03/29/19 at 1047 by Crys Khanna Meng, RN STOOL IS SOFT AND FORMED. NO DIARRHEA.
[2019-03-29] MEDS ORDERED: PANTOPRAZOLE 40 MG TABEC PO SCH (09:00)
[2019-03-29] MEDS ORDERED: INSULIN LANTUS 100 UNITS/ML 10 ML VIAL SUBQ SCH (09:32)
[2019-03-29] MEDS ORDERED: LACTOBACILLUS RHAMNOSUS GG 1 EACH CAP PO SCH (09:34)
[2019-03-29] MEDS ORDERED: NICOTINE TRANSD SYS 21 MG/24 HR PATCH TD SCH (09:37)
[2019-03-29] MEDS ORDERED: LISINOPRIL 5 MG TAB PO SCH (09:37)
--- NOTE | 2019-03-29 10:15 | NUR ---
STOOL SAMPLE AND MRSA NARES SAMPLE SENT TO LAB.
[2019-03-29] MEDS: BLOOD GLUCOSE MONITORING 1 DEV DEV FS SCH ×5 (10:22→21:45)
--- NOTE | 2019-03-29 10:23 | NUR ---
PER PHARMACY, ADMINISTER SCHEDULED LANTUS AND WILL NOT NEED TO ADMIN SLIDING SCALE IN ADDITION.
--- NOTE | 2019-03-29 10:24 | NUR ---
NOTIFIED RADIOLOGY THAT CONSENT IS SIGNED AND PATIENT CAN BE TAKEN FOR CT.
[2019-03-29] MEDS ORDERED: ATORVASTATIN 20 MG TAB PO SCH (10:31)
[2019-03-29] MEDS ORDERED: MAG SULF 2000 MG/WATER PREMIX 100 ML IV SCH (11:00)
--- NOTE | 2019-03-29 11:55 | NUR ---
PATIENT REFUSED ATORVASTATIN. EXPLAINED INDICATION AND RISKS AND BENEFITS. PT STATES THAT STATINS WILL CAUSE ERECTILE DYSFUNCTION. WILL NOTIFY MD.
[2019-03-29 12:00] VITALS: BP 142/94
[2019-03-29] MEDS ORDERED: FUROSEMIDE 20 MG/2 ML VIAL IVP SCH (13:00)
[2019-03-29] MEDS ORDERED: metroNIDAZOLE 500 MG/NS PREMIX 100 ML IV SCH (13:00)
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
[2019-03-29] MEDS ORDERED: SODIUM FERRIC GLUCONATE 125 MG in NACL 0.9% 100 ML IV SCH (14:00)
--- NOTE | 2019-03-29 14:21 | NUR ---
03/29/19 RD INITIAL ASSESSMENT COMPLETED PLEASE REFER TO NUTRITION ASSESSMENT UNDER CARE ACTIVITY FOR ESTIMATED NUTRITIONAL NEEDS. 1. CONTINUE CCHO 60 DIET TOLERATED 2. RECOMMEND GLUCERNA TID 3. RD TO FOLLOW-UP 2-3 DAYS, HIGH RISK EULALIO YANES, RD
[2019-03-29 15:41] LABS: APPEARANCE,URINE CLEAR (CLEAR); BILIRUBIN,URINE NEGATIVE (NEGATIVE); BLOOD, URINE 2+ (NEGATIVE); COLOR,URINE YELLOW (YELLOW); LEUKOCYTE ESTERASE ,URINE NEGATIVE (NEGATIVE); NITRITE, URINE NEGATIVE (NEGATIVE); PH,URINE 5.5 (5.0-9.0); UGLUCOSE 2+ (NEGATIVE)
[2019-03-29 15:49] LABS: BARBITURATE, URINE NEG. ng/ml (NEG <=200); BENZODIAZEPINE, URINE NEG. ng/mL (NEG <=200); CANNABINOID, URINE NEG. ng/mL (NEG <=50); COCAINE, URINE NEG. ng/mL (NEG <=300); OPIATE, URINE NEG. ng/mL (NEG <=2000); PHENCYCLIDINE SCREEN,URINE NEG. ng/mL (NEG <=25)
[2019-03-29 16:00] VITALS: BP 138/95
[2019-03-29] MEDS: FERROUS SULFATE 325 MG TABEC PO SCH (16:01)
[2019-03-29 16:30] LABS: WBC,URINE 0-5 /HPF (0-5)
[2019-03-29 16:31] LABS: RBC,URINE 11-20 (MOD) /HPF (0-5)
[2019-03-29] MEDS ORDERED: ALBUTEROL SULFATE/IPRATROPIU 3 ML SOL IH PRN (16:35)
--- NOTE | 2019-03-29 16:49 | NUR ---
PATIENT GAVE VERBAL CONSENT TO DISCLOSURE ALL HEALTH INFO TO [facility] [phone]. POPPY AT BEDSIDE PROVIDED THIS CONTACT INFO. WILL PLACE IN CHART AND ENDORSE.
--- NOTE | 2019-03-29 16:54 | NUR ---
ASKED HOUSE SUP TO BRING SCD
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
--- NOTE | 2019-03-29 17:41 | NUR ---
INFORMED DR. CARIAS THAT PATIENT AND FRIEND POPPY STATES PT HAS BIPOLAR D/O. FRIEND POPPY STATES MEDICATION INCOMPLIANCE PRIOR TO ADMISSION IS RELATED TO PSYCH ISSUES. NOTIFIED DR. CARIAS, ASKED IF PSYCH CONSULT NEEDED. PT IS NOT SUICIDAL. DR. CARIAS TO ORDER MEDICATION, STATES PSYCH EVAL NOT NEEDED.
[2019-03-29] MEDS: HYDROcodone/APAP 5/325 MG 1 TAB TAB PO PRN (18:40)
--- NOTE | 2019-03-29 19:19 | NUR ---
ENDORSED POC TO TOW CAR DRIVER RN. PT IN STABLE CONDITION. ENDORSED PAIN REASSESSMENT FOR 1940 AND F/U ON SCD.
--- NOTE | 2019-03-29 19:25 | NUR ---
RECEIVED BEDSIDE REPORT FROM DAY SHIFT NURSE. PATIENT IS AWAKE, ALERT, AND COOPERATIVE. RESPIRATION EVEN UNLABORED ON ROOM AIR. DENIES PAIN. SKIN IS WARM AND DRY. IV PATENT AND INTACT. PLAN OF CARE WAS DISCUSSED AND REVIEWED. ALL SAFETY MEASURES IN PLACE. BED IS AT LOW POSITION. CALL LIGHT WITHIN REACH AND VERBALIZES ITS USE. WILL CONTINUE TO MONITOR.
[2019-03-29 20:00] VITALS: BP 152/103
--- NOTE | 2019-03-29 20:00 | NUR ---
INITIAL ASSESSMENT DONE. VITALS WERE TAKEN. NO DISTRESS NOTED. WILL CONTINUE TO MONITOR
[2019-03-29] MEDS: ASCORBIC ACID 500 MG TAB PO SCH (20:42)
[2019-03-29] MEDS: FUROSEMIDE 20 MG/2 ML VIAL IVP SCH (20:43)
[2019-03-29] MEDS: MORPHINE SULFATE 2 MG/ML SYR IVP PRN (20:43)
--- NOTE | 2019-03-29 20:43 | NUR ---
PATIENT COMPLAINED 8/[address] VENTURA (RESIDENT) AT BEDSIDE. WILL CONTINUE TO MONITOR.
--- NOTE | 2019-03-29 21:00 | NUR ---
ALL SCHEDULED MEDS WERE GIVEN PER ORDER. NO ASE NOTED. WILL CONTINUE TO MONITOR
--- NOTE | 2019-03-29 23:20 | NUR ---
CHECKED ON PATIENT. PATIENT SLEEPING COMFORTABLY RESPIRATION EVEN UNLABORED ON ROOM AIR. NO DISTRESS NOTED. WILL CONTINUE TO MONITOR
[2019-03-30] VITALS: BP 121/77
--- NOTE | 2019-03-30 | NUR ---
VITALS WERE TAKEN. PATIENT IS IN STABLE CONDITION. NO DISTRESS NOTED. WILL CONTINUE TO MONITOR
[2019-03-30] MEDS: BLOOD GLUCOSE MONITORING 1 DEV DEV FS SCH ×8 (01:18→22:57)
--- NOTE | 2019-03-30 01:25 | NUR ---
CHECKED PATIENT BLOOD SUGAR. PATIENT BLOOD SUGAR 68. OFFER ORANGE JUICE. WILL CONTINUE TO MONITOR
--- NOTE | 2019-03-30 04:30 | NUR ---
PATIENT BLOOD SUGAR 60. OFFERED ORANGE JUICE DECLINED. PRN D50 ADMINISTER PER ORDER. WILL CONTINUE TO MONITOR.
[2019-03-30] MEDS: DEXTROSE 50% 50 ML SYR IVP PRN ×2 (04:33→22:59)
[2019-03-30 07:59] LABS: BASOPHILS % (AUTO) 0.2 % (0.0-2.0); EOSINOPHILS # (AUTO) 0.1 K/uL (0-0.4); EOSINOPHILS % (AUTO) 0.3 % (0.0-4.0); HEMATOCRIT 23.1 % (36-52); HEMOGLOBIN 7.5 g/dL (12.0-18.0); LYMPHOCYTES # (AUTO) 1.6 K/uL (2.0-11.5); LYMPHOCYTES % (AUTO) 9.6 % (20.5-51.1); MEAN CORPUSCULAR HEMOGLOBIN 27 pg (27-31); MEAN CORPUSCULAR HGB CONC 33 g/dL (33-37); MEAN CORPUSCULAR VOLUME 82.1 fL (80-94); MONOCYTES # (AUTO) 0.5 K/uL (0.8-1.0); MONOCYTES % (AUTO) 3.1 % (1.7-9.3); NEUTROPHILS # (AUTO) 14.4 K/uL (1.8-7.7); NEUTROPHILS % (AUTO) 86.8 % (42.2-75.2); RED BLOOD CELL COUNT(AUTO) 2.82 MIL/uL (4.20-6.10); RED CELL DISTRIBUTION WIDTH 14.1 % (11.6-13.7)
[2019-03-30 08:00] VITALS: BP 141/80
--- NOTE | 2019-03-30 08:24 | NUR ---
PT'S OPENING NOTE WAS WRITTEN ON PAPER, IN PT'S CHART, DUE TO SYSTEM DOWN THIS AM.
[2019-03-30 08:28] LABS: ANION GAP 9.6 (8-16); CARBON DIOXIDE 27.4 mmol/L (21-32); CREATININE 0.8 mg/dL (0.7-1.3)
[2019-03-30] MEDS: NACL 0.9% 1,000 ML IV SCH (08:32)
[2019-03-30 08:38] LABS: MAGNESIUM 2.2 mg/dL (1.8-2.4); PHOSPHORUS 2.3 mg/dL (2.5-4.9)
[2019-03-30 08:59] LABS: WHITE BLOOD COUNT (AUTO) 16.6 K/uL (4.8-10.8)
[2019-03-30 09:00] LABS: PLATELET COUNT (AUTO) 499 K/uL (140-450)
[2019-03-30] MEDS: LEVOFLOXACIN 750 MG/D5W PREMIX 150 ML IV SCH (09:00)
[2019-03-30] MEDS: INSULIN LANTUS 100 UNITS/ML 10 ML VIAL SUBQ SCH (09:00)
[2019-03-30 09:13] LABS: T4 (THYROXINE) 4.1 ug/dL (4.5-12.0)
--- NOTE | 2019-03-30 09:14 | NUR ---
PT COMPLAINED THAT HIS HOSPITAL LANDLINE PHONE HAS BEEN OUT OF REACH ON HIS BEDSIDE TABLE "FOR THREE DAYS." LANDLINE PHONE GIVEN TO PT WITHIN REACH. PT ALSO HAS HIS CELL PHONE WITHIN REACH.
[2019-03-30] MEDS: ASCORBIC ACID 500 MG TAB PO SCH (09:52)
[2019-03-30] MEDS: NICOTINE TRANSD SYS 21 MG/24 HR PATCH TD SCH (09:52)
[2019-03-30] MEDS: FUROSEMIDE 20 MG/2 ML VIAL IVP SCH ×2 (09:52→21:05)
[2019-03-30] MEDS: ATORVASTATIN 20 MG TAB PO SCH (09:53)
[2019-03-30] MEDS: LACTOBACILLUS RHAMNOSUS GG 1 EACH CAP PO SCH (09:53)
[2019-03-30] MEDS: FERROUS SULFATE 325 MG TABEC PO SCH ×2 (09:54→16:46)
[2019-03-30] MEDS: LISINOPRIL 5 MG TAB PO SCH (09:54)
[2019-03-30] MEDS: MORPHINE SULFATE 2 MG/ML SYR IVP PRN ×2 (10:18→16:29)
[2019-03-30] MEDS: ONDANSETRON 4 MG/2 ML VIAL IM/IVP PRN (10:31)
--- NOTE | 2019-03-30 10:35 | NUR ---
PT HAD AN EPISODE OF EMESIS X 1.
--- NOTE | 2019-03-30 10:43 | NUR ---
PT C/O PAIN IN THE RIGHT EPIGASTRIC REGION, STATES IT FEELS LIKE A "BUBBLE STUCK IN THERE". DENIES RADIATION DOWN THE ARM. PT ALSO JUST HAD ONE EPISODE OF EMESIS EARLIER. PT'S VS ARE STABLE TO BASELINE. DR CARIAS IS AWARE OF THIS, AND WILL GO SEE THE PATIENT.
--- NOTE | 2019-03-30 11:58 | NUR ---
PT SEEN BY DR CARIAS
[2019-03-30 12:00] VITALS: BP 143/95
[2019-03-30] MEDS ORDERED: FOLIC ACID 1 MG TAB PO SCH (13:10)
[2019-03-30] MEDS ORDERED: SODIUM PHOS / POTASSIUM PHOS 1 PKT PDR PO SCH (13:11)
[2019-03-30] MEDS ORDERED: MULTIVITAMIN 1 TAB PO SCH (13:11)
[2019-03-30] MEDS ORDERED: THIAMINE 100 MG TAB PO SCH (13:13)
--- NOTE | 2019-03-30 13:40 | NUR ---
PT'S DIET CONSISTENCY CHANGED TO MECHANICAL SOFT DUE TO PT WITHOUT TEETH AND UNABLE TO CHEW SOLID FOODS.
[2019-03-30] MEDS ORDERED: SODIUM FERRIC GLUCONATE 125 MG in NACL 0.9% 100 ML IV SCH (14:00)
--- NOTE | 2019-03-30 14:18 | NUR ---
ASKED RT TO COLLECT AN INDUCED SPUTUM SAMPLE FROM PT, PER MD ORDER. RT SAID WILL TRY LATER.
--- NOTE | 2019-03-30 14:29 | NUR ---
PT BEING EVALUATED BY [employer] FOR HIS FOOD PREFERENCES. PT HAS A LONG LIST OF FOODS THAT HE SAYS HE CANNOT EAT. GAMBLING MONITOR IS GOING OVER THE KINDS OF FOODS THE PT IS ABLE TO EAT. DIETARY WILL MAKE SPECIAL MEALS FOR PT THAT HE IS ABLE TO AND WILLING TO EAT.
[2019-03-30 15:14] LABS: FOLIC ACID 5.6 ng/mL (>3.0)
--- NOTE | 2019-03-30 15:51 | NUR ---
PT GETTING A BED BATH AT THIS TIME.
[2019-03-30 16:00] VITALS: BP 152/86
--- NOTE | 2019-03-30 16:40 | NUR ---
PT STATES HE FEELS "BACKED UP" AND LIKE HE IS NOT ABLE TO HAVE A BM USUAL. PO IRON HELD AND PRN COLACE ADMINISTERED. WILL CONTINUE TO MONITOR PT.
--- NOTE | 2019-03-30 19:15 | NUR ---
PT ENDORSED TO POLICY CHANGE CLERK NURSE IN STABLE CONDITION.
--- NOTE | 2019-03-30 19:25 | NUR ---
RECEIVED BEDSIDE REPORT FROM DAY SHIFT NURSE. PATIENT IS AWAKE, ALERT, AND COOPERATIVE. RESPIRATION EVEN UNLABORED ON ROOM AIR. SKIN IS WARM AND DRY. IV PATENT AND INTACT. PLAN OF CARE WAS DISCUSSED. ALL SAFETY MEASURES IN PLACE. BED IS AT LOW POSITION. CALL LIGHT WITHIN REACH AND VERBALIZES ITS USE. WILL CONTINUE TO MONITOR
--- NOTE | 2019-03-30 19:30 | NUR ---
PT'S BLOOD GLUCOSE AT THIS TIME IS 61. PT WAS GIVEN A BOX OF ORANGE JUICE AND ENCOURAGED TO DRINK IT. PT DRINKING OJ AT THIS TIME.
--- NOTE | 2019-03-30 21:00 | NUR ---
ALL SCHEDULED MEDS WERE GIVEN AND TOLERATED THEM WELL. NO ASE NOTED. WILL CONTINUE TO MONITOR.
[2019-03-30] MEDS: MIRTAZAPINE 15 MG TAB PO SCH (21:05)
--- NOTE | 2019-03-30 22:50 | NUR ---
CHECKED PATIENT BLOOD SUGAR. PATIENT BLOOD SUGAR 50mg/dL GAVE 1 CUP OF ORANGE JUICE AND ADMINISTERED PRN D50 PER ORDER. WILL CONTINUE TO MONITOR.
--- NOTE | 2019-03-30 23:20 | NUR ---
RECHECKED BLOOD GLUCOSE. PATIENT BLOOD GLUCOSE 131mg/dL. WILL CONTINUE TO MONITOR
[2019-03-31] VITALS: BP 108/67
--- NOTE | 2019-03-31 | NUR ---
VITALS WERE TAKEN. PATIENT IS IN STABLE CONDITION. NO DISTRESS NOTED. WILL CONTINUE TO MONITOR
[2019-03-31] MEDS: BLOOD GLUCOSE MONITORING 1 DEV DEV FS SCH ×8 (01:15→23:13)
--- NOTE | 2019-03-31 01:20 | NUR ---
PATIENT BLOOD GLUCOSE 63mg/dL OFFERED ORANGE JUICE ONLY DRANK HALF AND REFUSED TO FINISH IT ALL. EDUCATED THE RISK AND BENEFITS OF IT X2 STILL REFUSED. WILL CONTINUE TO MONITOR.
[2019-03-31] MEDS: DEXT 5% /NACL 0.9% 1,000 ML IV SCH ×2 (01:44→23:13)
--- NOTE | 2019-03-31 02:00 | NUR ---
PATIENT DESAT TO 75% ADMINISTER O2 2-3L PER ORDER STILL NOT RESOLVED. ABG BLOOD GAS ORDER PER DR. CLARKE. WILL CONTINUE TO MONITOR.
--- NOTE | 2019-03-31 02:30 | NUR ---
PLACED PATIENT IN BIBAP MASK FOR BETTER OXYGENATION PER DR. CLARKE ORDER. WILL CONTINUE TO MONITOR.
--- NOTE | 2019-03-31 03:00 | NUR ---
PATIENT SATING 96% BIPAP MASK 60% O2. NO DISTRESS NOTED. WILL CONTINUE TO MONITOR.
--- NOTE | 2019-03-31 04:30 | NUR ---
CHECKED PATIENT BLOOD GLUCOSE. PATIENT BLOOD GLUCOSE 59mg/dL. OFFER ORANGE JUICE DECLINE. ADMINISTER PRN D50 PER ORDER. WILL CONTINUE TO MONITOR.
--- NOTE | 2019-03-31 04:30 | NUR ---
PT FINGERSTICK IS 122
[2019-03-31] MEDS: DEXTROSE 50% 50 ML SYR IVP PRN ×2 (04:31→21:05)
--- NOTE | 2019-03-31 04:40 | NUR ---
PATIENT COMPLAINED OF 8/10 LEG PAIN. PRN PAIN MED ADMINISTERED PER ORDER. WILL CONTINUE TO MONITOR.
[2019-03-31] MEDS: MORPHINE SULFATE 2 MG/ML SYR IVP PRN ×3 (04:41→21:12)
[2019-03-31] MEDS ORDERED: FUROSEMIDE 40 MG/4 ML VIAL IVP SCH ×3 (05:15→17:00)
--- NOTE | 2019-03-31 07:10 | NUR ---
Received report from pm nurse Kristy. Pt asleep in bed with bipap on with FiO2 @ 60%. Pt arousable with auditory stimuli. No c/o discomfort. Call light within reach.
--- NOTE | 2019-03-31 07:10 | NUR ---
ENDORSED PATIENT TO DAY SHIFT NURSE FOR CONTINUITY OF CARE. PATIENT IS IN STABLE CONDITION.
[2019-03-31 07:25] VITALS: BP 118/82
[2019-03-31 07:56] LABS: BASOPHILS % (AUTO) 0.2 % (0.0-2.0); EOSINOPHILS % (AUTO) 0.1 % (0.0-4.0); HEMATOCRIT 23.1 % (36-52); HEMOGLOBIN 7.7 g/dL (12.0-18.0); LYMPHOCYTES # (AUTO) 1.1 K/uL (2.0-11.5); LYMPHOCYTES % (AUTO) 6.8 % (20.5-51.1); MEAN CORPUSCULAR HEMOGLOBIN 27 pg (27-31); MEAN CORPUSCULAR HGB CONC 33 g/dL (33-37); MEAN CORPUSCULAR VOLUME 81.6 fL (80-94); MONOCYTES # (AUTO) 0.3 K/uL (0.8-1.0); MONOCYTES % (AUTO) 2.2 % (1.7-9.3); NEUTROPHILS # (AUTO) 14.4 K/uL (1.8-7.7); NEUTROPHILS % (AUTO) 90.7 % (42.2-75.2); PLATELET COUNT (AUTO) 434 K/uL (140-450); RED BLOOD CELL COUNT(AUTO) 2.83 MIL/uL (4.20-6.10); RED CELL DISTRIBUTION WIDTH 14.3 % (11.6-13.7); WHITE BLOOD COUNT (AUTO) 15.9 K/uL (4.8-10.8)
[2019-03-31 08:00] VITALS: BP 118/82
[2019-03-31] MEDS: FERROUS SULFATE 325 MG TABEC PO SCH ×2 (08:00→15:58)
[2019-03-31 08:03] LABS: ANION GAP 10.5 (8-16); CARBON DIOXIDE 26.3 mmol/L (21-32); CREATININE 0.9 mg/dL (0.7-1.3); POTASSIUM 3.8 mmol/L (3.5-5.1)
[2019-03-31 08:06] LABS: MAGNESIUM 1.9 mg/dL (1.8-2.4); PHOSPHORUS 3.6 mg/dL (2.5-4.9)
--- NOTE | 2019-03-31 08:20 | NUR ---
Asked Dr. Person if pt's bipap mask ok to be removed for breakfast. Per physician, ok to eat if O2sats WNL without bipap. Pt's SaO2=96-98% with bipap FiO2 60%, HOB elevated @ 45�. Mask removed, SaO2 decreased to 80-82% on RA. Oxymizer applied with O2 @ 10Lpm, SaO2=83-85%, pt RR 16/min nonlabored. Bipap mask reapplied d/t low SaO2. SaO2 stable 92-93% with bipap. Dr Rashid notified. Per physician, no po at this time, may hold po meds.
[2019-03-31] MEDS: ASCORBIC ACID 500 MG TAB PO SCH (09:00)
[2019-03-31] MEDS: FOLIC ACID 1 MG TAB PO SCH (09:00)
[2019-03-31] MEDS: LISINOPRIL 5 MG TAB PO SCH (09:00)
[2019-03-31] MEDS: ATORVASTATIN 20 MG TAB PO SCH (09:00)
[2019-03-31] MEDS: THIAMINE 100 MG TAB PO SCH (09:00)
[2019-03-31] MEDS: LACTOBACILLUS RHAMNOSUS GG 1 EACH CAP PO SCH (09:00)
[2019-03-31] MEDS: INSULIN LANTUS 100 UNITS/ML 10 ML VIAL SUBQ SCH (09:00)
[2019-03-31] MEDS: MULTIVITAMIN 1 TAB PO SCH (09:00)
--- NOTE | 2019-03-31 09:00 | NUR ---
Laz held d/t pt no po intake with episodes of hypoglycemia in pm shift.
[2019-03-31] MEDS: NICOTINE TRANSD SYS 21 MG/24 HR PATCH TD SCH (09:06)
[2019-03-31] MEDS: LEVOFLOXACIN 750 MG/D5W PREMIX 150 ML IV SCH (09:07)
--- NOTE | 2019-03-31 10:00 | NUR ---
CONTACT INFORMATION UPDATE: Received phone call from Ángel Dawson (pt's girlfriend) [phone] asking about pt's status. Pt in bed, awake, asked if ok to give information to Ángel. Per pt, may give all medical updated to Ángel. Ángel notified of pt's current condition.
--- NOTE | 2019-03-31 10:10 | NUR ---
SATURATION 96% ON FIO2 OF 70% VIA BIPAP TO MASK
--- NOTE | 2019-03-31 10:17 | NUR ---
TRANSFERRED TO RADIOLOGY FOR CT SCAN OF CHEST PATIENT REMAINS ON BIPAP TO MASK OXYGEN VIA E-TANK ADEQUATE PSI LEVELS SATURATION 94%-97% TOLERATED WELL WITHOUT INCIDENT
--- NOTE | 2019-03-31 10:43 | NUR ---
TRANSFERRED BACK TO [facility] BIPAP ELECTRICAL CORD CONNECTED RED OUTLET OXYGEN CONNECTED TO WALL 50 PSI MASIMO RADICAL-7 CONTINUOS PULSE OXIMETER AT BEDSIDE ON AND FUNCTIONING WELL LOW SATURATION ALARM SET AT 92% SATURATION CURRENTLY 90%-91% ON FIO2 OF 70% INCREASED FIO2 TO 80% CURRENT OXYGEN ORDER TO KEEP SATURATION GREATER THAN 92% HEMATOLOGY RESULTS DATED 03/31/2019 06:00 REVIEWED
--- NOTE | 2019-03-31 11:05 | NUR ---
Pt fingerstick glucose = 47, rechecked on other finger with same result. Pt supine in bed, awake, verbally responsive, bipap mask on. No signs of distress. Pt states he feels ok other than generalized body pain from moving to and from [place]. Both MS & [facility] out of D50%. Called pharmacist & states that there is shortage of D50% & that she will mix one dose & bring to [facility].
--- NOTE | 2019-03-31 11:15 | NUR ---
Received call from pharmacist & states that they are unable to provide D50% at this time, & will need to put in order for D10% bolus.
--- NOTE | 2019-03-31 11:30 | NUR ---
Initiated IV D10% @ 250ml/hr at this time. Pt awake, verbally responsive, no signs of distress, bipap mask on. Call light within reach.
[2019-03-31] MEDS: DEXTROSE 10% 250 ML IV SCH ×3 (11:31→13:30)
[2019-03-31 13:24] VITALS: BP_SYST 97
--- NOTE | 2019-03-31 13:30 | NUR ---
Pt sitting up in bed with oxymizer, eating lunch. RT at bedside monitoring pt for SOB.
--- NOTE | 2019-03-31 14:15 | NUR ---
D10% held d/t fingerstick glucose 122, pt sitting up to eat lunch, on O2 @ 10Lpm via oxymizer. No signs of distress at this time. No SOB. No c/o discomfort. Call light within reach.
[2019-03-31] MEDS: HYDROcodone/APAP 5/325 MG 1 TAB TAB PO PRN (15:59)
[2019-03-31 16:00] VITALS: BP 127/75
--- NOTE | 2019-03-31 16:25 | NUR ---
Pt on O2 @ 10Lpm via oxymizer, RR even & nonlabored. Pt voided in bed, pericare provided & pt repositioned. Pt c/o feeling extremely tired, RR 26/min with labored breathing. SaO2 @ 75% on O2 @ 10Lpm via oxymizer. Called RT Terrence & notified will reapply bipap. Per Terrence, he is on his way to see pt to apply HiFlo.
--- NOTE | 2019-03-31 16:30 | NUR ---
RT at bedside providing treatment.
[2019-03-31 16:40] VITALS: BP 127/75
[2019-03-31 17:15] LABS: PROTHROMBIN TIME 10.9 secs (10.8-13.4)
--- NOTE | 2019-03-31 17:49 | NUR ---
Pt on semi-fowlers in bed, awake, no c/o discomfort, no signs of distress, respirations even & nonlabored on O2 @ 10Lpm 75%FiO2 via high flow nasal cannula. Left forearm intact with ongoing D5NS @ 30ml/hr. Call light within reach. Addendum: 04/01/19 at 1419 by Sonam Rolon RN Clarification: pt on 70% FIO2, 45LPM via hiflow nasal cannula.
--- NOTE | 2019-03-31 19:10 | NUR ---
REPORT RECEIVED FROM RUI RN DAYSHIFT NURSE AT BEDSIDE FOR CONTINUITY OF CARE, PT IN STABLE CONDITION.
[2019-03-31] MEDS: ALBUTEROL SULFATE/IPRATROPIU 3 ML SOL IH SCH (19:15)
--- NOTE | 2019-03-31 19:15 | NUR ---
Bedside report given to pm nurse Estelita. Pt awake, RT bedside providing care. Hiflo nasal cannula in place with FiO2 72%. Left forearm IV intact with ongoing D5NS @ 30ml/hr. Call light within reach.
--- NOTE | 2019-03-31 19:48 | NUR ---
FOUND PATIENT ON 70% FIO2, 45LPM ON HIGH FLOW NASAL CANNULA. SPO2 78% UPON ARRIVAL. GAVE PT HHN TX AND INCREASED FIO2 TO 99% AND LITER FLOW TO 55LPM. SPO2 INCREASED TO 95%. SPO2 WILL DROP WHEN PATIENT IS TALKING BUT GOES HIGH 96% WHEN PT IS QUIET. RN NOTIFIED OF CHANGES.
--- NOTE | 2019-03-31 20:00 | NUR ---
PT IN BED WITH HI JESSICA N/C RUNNING 02 AT 55L. ALL FALLS PRECAUTIONS IN PLACE. PT RECENTLY FINISHED A NEB TREATMENT AND CURRENT 02 IS 94%. LUNGS SOUNDS ARE COARSE CRACKLES AND BOWEL SOUNDS PRESENT BUT DIMINISHED. DINNER HEATED UP REQUESTED AND PT POSITIONED SITTING UP AT 90%. PT RECEIVED STANDBY ASSISTANCE WITH DINER. HE ATE ABOUT 25% OF DINNER AND STOPPED WITH C/O OF REGURGITATION. PT SAID IT FEELS LIKE A GAS BUBBLE AND HE DOESN'T WANT TO FORCE THE FOOD. HE DECLINED ANY MEDS FOR NAUSEA SAYING THAT HE WASN'T FEELING NAUSEA, HR DID C/O OF PAIN 06/08 WILL MEDICATE WITH MORPHINE. V/S FOLLOWS T 97.6 P 100 R 18 B/P 120/75. FINGERSTICK IS 54 WILL FOLLOW PROTOCOL WITH 50% DEXTROSE IVP.
[2019-03-31] MEDS: MIRTAZAPINE 15 MG TAB PO SCH (20:54)
[2019-03-31] MEDS ORDERED: DEXTROSE 50% 50 ML SYR IVP ONE (21:06)
--- NOTE | 2019-03-31 21:15 | NUR ---
50% DEXTROSE IVP NOT AVAILABLE ON UNIT, ELIZABETH SCHMITTPOWER TRANSFORMER ASSEMBLER WAS ABLE TO OBTAIN THE MEDICATION AND WAS GIVEN IVP ORDERED FOR LOW BLOOD SUGAR. PT ALSO ENCOURAGE TO DRINK HIS SUPPLEMENT. HE WAS ALSO GIVEN IVP MORPHINE FOR 8/10 LEG AND GENERALIZED PAIN. PT ALSO GIVEN ORDERED REMERON AND HEPARIN. WILL RETAKE FINGERSTICK LATER. ALL FALLS PRECAUTION OBSERVED AND CALL GAMING IN REACH.
--- NOTE | 2019-03-31 22:30 | NUR ---
RETAKE OF FINGERSTICK IS 123. 02 IS 93% WITH HI JESSICA N/C. POSITIVE EFFECT OF PAIN MEDICATION NOTED. ALL REQUESTED NEEDS ATTENDED.
--- NOTE | 2019-04-01 00:01 | NUR ---
PT IN BED HOB PUT DOWN TO 45%. PT DECLINES TO BE TURNED AND SAID THAT HE WAS COMFORTABLE AND DOESN'T NEED TO BE CHANGED. PT ROD PAIN AT THIS TIME. V/S FOLLOWS T 98.7 P 95 R 18 B/P 104/65 02 91% ON HI JESSICA N/C WITH 02 RUNNING AT 55L. ALL REQUESTED NEEDS ATTENDED.
[2019-04-01] MEDS: BLOOD GLUCOSE MONITORING 1 DEV DEV FS SCH ×8 (01:49→22:30)
--- NOTE | 2019-04-01 02:00 | NUR ---
PT SLEEPING SOUNDLY 02 IS 94% WITH HI FLOW N/C. ALL FALLS PRECAUTIONS IN PLACE.
[2019-04-01 04:00] VITALS: BP 115/65
--- NOTE | 2019-04-01 04:15 | NUR ---
PT IN BED, ALL FALLS PRECAUTIONS IN PLACE, V/S FOLLOWS T 99 P 110 R 18 B/P 115/65 02 91 WITH ALL CURRENT HI JESSICA N/C ( 55L 02 ). PT WAS TURNED , CLEANED AND REPOSITIONED.
--- NOTE | 2019-04-01 04:35 | NUR ---
PT FINGERSTICK IS 139
--- NOTE | 2019-04-01 04:48 | NUR ---
CALLED TO PTS ROOM BECAUSE HE WAS DESATURATING. PT FOUND ALSEEP ON HIGH FLOW NASAL CANNULA WITH SPO2 OF 91%. I STRAIGHTENED OUT THE PTS NASAL PRONGS AND SPO2 INCREASED TO 93%. PT ADVISED NO DISTRESS AT THIS TIME.
[2019-04-01] MEDS: MORPHINE SULFATE 2 MG/ML SYR IVP PRN ×2 (04:58→15:42)
--- NOTE | 2019-04-01 05:00 | NUR ---
PT C/O OF SEVERE PAIN IN BACK AND WAS GIVEN PRN/IVP MORPHINE FOR SEVERE PAIN, WILL MONITOR FOR EFFECT.
--- NOTE | 2019-04-01 06:05 | NUR ---
PER Rex GRECO/NOC RT REPORT PATIENT REFUSING TO USE BIPAP TO MASK PATIENT STATED "I DON'T WANT TO GO BACK ON THAT MACHINE IT'S THE DEVIL"
[2019-04-01 07:17] LABS: BASOPHILS # (AUTO) 0.1 K/uL (0.00-0.22); BASOPHILS % (AUTO) 0.3 % (0.0-2.0); EOSINOPHILS % (AUTO) 0.2 % (0.0-4.0); HEMATOCRIT 22.1 % (36-52); HEMOGLOBIN 7.5 g/dL (12.0-18.0); LYMPHOCYTES # (AUTO) 0.6 K/uL (2.0-11.5); LYMPHOCYTES % (AUTO) 3.6 % (20.5-51.1); MEAN CORPUSCULAR HEMOGLOBIN 28 pg (27-31); MEAN CORPUSCULAR HGB CONC 34 g/dL (33-37); MEAN CORPUSCULAR VOLUME 81.7 fL (80-94); MONOCYTES # (AUTO) 0.3 K/uL (0.8-1.0); MONOCYTES % (AUTO) 1.6 % (1.7-9.3); NEUTROPHILS # (AUTO) 16.1 K/uL (1.8-7.7); NEUTROPHILS % (AUTO) 94.3 % (42.2-75.2); PLATELET COUNT (AUTO) 397 K/uL (140-450); RED CELL DISTRIBUTION WIDTH 14.3 % (11.6-13.7); WHITE BLOOD COUNT (AUTO) 17.1 K/uL (4.8-10.8)
--- NOTE | 2019-04-01 07:28 | NUR ---
CARE ENDORSED TO ANUP RN AND RUI RN DAYSHIFT NURSES FOR CONTINUITY OF CARE, PT INSTABLE CONDITION.
--- NOTE | 2019-04-01 07:29 | NUR ---
RECEIVED BEDSIDE REPORT FROM NIGHT NURSE. PT IS RESTING IN BED BREATHING SYMMETRICAL AND UNLABORED WITH CONTINUOUS OXYGEN MONITOR IN PLACE WITH HIS OXYGEN SATURATION STAYING BETWEEN 92-95% AT THIS TIME. NO OBVIOUS SIGNS OF DISTRESS. PATIENT HAS A LEFT FOREARM IV SITE THAT IS RUNNING D5 NORMAL SALINE AT 50 ML/HR. IV SITE IS ASYMPTOMATIC AND PATENT. PT HAS NO SWELLING IN FEET OR ABDOMEN, BUT SCROTUM AND PENIS HAS NON PITTING EDEMA. ALL SAFETY MEASURES IN PLACE AND CALL LIGHT WITHIN REACH.
[2019-04-01 07:34] LABS: ANION GAP 11.8 (8-16); CARBON DIOXIDE 25.4 mmol/L (21-32); CREATININE 1.3 mg/dL (0.7-1.3); POTASSIUM 4.2 mmol/L (3.5-5.1)
[2019-04-01 07:42] LABS: MAGNESIUM 1.9 mg/dL (1.8-2.4); PHOSPHORUS 4.4 mg/dL (2.5-4.9)
--- NOTE | 2019-04-01 07:55 | NUR ---
RECEIVED PHONE CALL FROM PATIENT'S GIRLFRIEND ASKING ABOUT PATIENT. INFORMED HER I WOULD HAVE TO VERIFY WITH PATIENT AND CHART IF I CAN DISCUSS PATIENT CONDITION WITH HER. SHE SAID SHE APPRECIATES THE PRIVACY AND WOULD CALL LATER.
--- NOTE | 2019-04-01 08:15 | NUR ---
AWAKE AND ALERT PATIENT WITH BREAKFAST TRAY AT THIS TIME BILINGUAL ACCOUNT MANAGER TO ATTEMPT HHN THERAPY AND RESPIRATORY DRUG AT A LATER TIME
[2019-04-01] MEDS: metroNIDAZOLE 500 MG TAB PO SCH ×3 (08:30→17:15)
[2019-04-01] MEDS: THIAMINE 100 MG TAB PO SCH (08:30)
[2019-04-01] MEDS: MULTIVITAMIN 1 TAB PO SCH (08:30)
[2019-04-01] MEDS: ASCORBIC ACID 500 MG TAB PO SCH (08:30)
[2019-04-01] MEDS: FERROUS SULFATE 325 MG TABEC PO SCH ×2 (08:31→17:15)
[2019-04-01] MEDS: FOLIC ACID 1 MG TAB PO SCH (08:31)
[2019-04-01] MEDS: LACTOBACILLUS RHAMNOSUS GG 1 EACH CAP PO SCH (08:31)
[2019-04-01] MEDS: ATORVASTATIN 20 MG TAB PO SCH (08:31)
[2019-04-01] MEDS: LISINOPRIL 5 MG TAB PO SCH (08:31)
[2019-04-01] MEDS: NICOTINE TRANSD SYS 21 MG/24 HR PATCH TD SCH (08:32)
[2019-04-01] MEDS: DEXT 5% /NACL 0.9% 1,000 ML IV SCH (08:34)
--- NOTE | 2019-04-01 08:50 | NUR ---
PT SITTING UP IN BED WITH NO OBVIOUS SIGNS OF ACUTE DISTRESS. PT HAS NO REQUESTS AT THIS TIME.
[2019-04-01] MEDS: LEVOFLOXACIN 750 MG/D5W PREMIX 150 ML IV SCH (08:52)
[2019-04-01] MEDS ORDERED: ARIPiprazole 10 MG TAB PO SCH (09:00)
[2019-04-01] MEDS: ALBUTEROL SULFATE/IPRATROPIU 3 ML SOL IH SCH ×3 (09:35→20:02)
--- NOTE | 2019-04-01 10:07 | NUR ---
SCREEN FOR LOW ABHILASH SCALE AT RISK,PRESSURE INJURY PREVENTION INTERVENTIONS IN PLACE. -TURN AND REPOSITION PATIENT Q 2H -ASSESS AND MONITOR SKIN CONDITION DURING POSITION CHANGE -OFFLOAD BILATERAL HEELS BY PLACING PILLOWS UNDER CALVES AT ALL TIMES, UNLESS OTHERWISE CONTRAINDICATED -PRESSURE REDISTRIBUTION BY PLACING PILLOWS -KEEP SKIN CLEAN AND DRY AT ALL TIMES.
--- NOTE | 2019-04-01 10:16 | NUR ---
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 PT'S GIRLFRIEND CALLED ME AND I DISCUSSED PATIENT CONDITION AND INFORMED HER OF HOW PATIENT IS DOING AT THIS TIME.
--- NOTE | 2019-04-01 12:55 | NUR ---
PT SLEEPING IN BED, BREATHING SYMMETRICAL AND UNLABORED. NO OBVIOUS SIGNS OF DISTRESS.
--- NOTE | 2019-04-01 13:52 | NUR ---
PT RESTING IN BED OXYGEN SATURATION AT 98% RIGHT NOW NO LABORED BREATHING. PT DENIES PAIN AND HAS NO OBVIOUS SIGNS OF ACUTE DISTRESS.
--- NOTE | 2019-04-01 13:52 | NUR ---
PATIENT BLOOD SUGAR IS 180 AFTER HAVING JUST FINISHED LUNCH. PT DENIES ANY PAIN OR DISCOMFORT AND STATES HE IS FEELING BETTER AT THIS TIME AND HAS NO REQUESTS AT THIS TIME OR OBVIOUS SIGNS OF ACUTE DISTRESS.
--- NOTE | 2019-04-01 13:57 | NUR ---
ASLEEP TOLERATING HIGH FLOW TO CANNULA WELL WITHOUT INCIDENT
--- NOTE | 2019-04-01 13:58 | NUR ---
EULALIO AT BEDSIDE TO DISCUSS PATIENT MEAL PLAN AWAKE AND ALERT NOW PATIENT PRESENTING WITH DESCENDING SATURATION TO 85% WITH SPEAKING ACTIVITY
--- NOTE | 2019-04-01 14:25 | NUR ---
SPUTUM SAMPLE COLLECTED, LABELED, PUT IN SAMPLE BAG AND THIS NURSE DELIVERED TO LAB PERSONALLY.
[2019-04-01 16:00] VITALS: BP 135/78
--- NOTE | 2019-04-01 16:00 | NUR ---
PT SLEEPING IN BED BREATHING UNLABORED AND SYMMETRICAL, O2 SATURATION AT 94%
--- NOTE | 2019-04-01 16:02 | NUR ---
04/01/19 RD FOLLOW UP COMPLETED PLEASE REFER TO NUTRITION ASSESSMENT UNDER CARE ACTIVITY FOR ESTIMATED NUTRITIONAL NEEDS. 1. CONTINUE CCHO 60 GM DIET WITH GLUCERNA TID TOLERATED 2. RD PROVIDED EDUCATION ON LOW FODMAP DIET. PT ACCEPTED 3. ENCOURAGE INCREASING PO INTAKE 4. RD TO FOLLOW-UP 2-3 DAYS, HIGH RISK EULALIO YANES, RD
--- NOTE | 2019-04-01 16:42 | NUR ---
PT RESTING IN BED HAS NO REQUESTS AT THIS TIME. NO OBVIOUS SIGNS OF DISTRESS BREATHING UNLABORED AND SYMMETRICAL.
[2019-04-01] MEDS: FUROSEMIDE 20 MG/2 ML VIAL IVP SCH (17:15)
--- NOTE | 2019-04-01 17:23 | NUR ---
SPOKE WITH PATIENT'S GIRLFRIEND, EMILIA, WHILE AT BEDSIDE. SHE WAS CURIOUS OF PATIENT'S CONDITION. UPDATED HER AND ADMINISTERED PATIENT'S MEDICATIONS. PT HAS NO ACUTE DISTRESS OXYGEN SATURATION AT 92%.
[2019-04-01] MEDS: INSULIN LISPRO SLIDING SCALE 100 UNITS/ML VIAL SUBQ PRN ×2 (17:34→21:38)
--- NOTE | 2019-04-01 18:00 | NUR ---
PT SLEEPING IN BED NO OBVIOUS SIGNS OF DISTRESS WITH BREATHING UNLABORED AND SYMMETRICAL.
--- NOTE | 2019-04-01 18:57 | NUR ---
SPOKE WITH DR. JUAREZ REGARDING PATIENT CONDITION, COMPLAINTS, AND TREATMENTS THAT HAVE OCCURRED DURING MY SHIFT. NO FURTHER ORDERS AT THIS TIME.
--- NOTE | 2019-04-01 19:25 | NUR ---
GAVE BEDSIDE REPORT PT IN STABLE CONDITION AT THIS TIME
--- NOTE | 2019-04-01 19:25 | NUR ---
Patient's Plan of Care was discussed and reviewed with RETAIL SALES VITAMIN CONSULTANT: REYMUNDO CRANE
--- NOTE | 2019-04-01 19:26 | NUR ---
RECD. RESTING IN BED, AWAKE A/OX4. RESPIRATION EVEN AND UNLABORED. ON HIGH FLOW OXYGEN MACHINE MACHINE AT 55, 02 SAT - 92-93%. IV OF NS AT TKO INFUSING, LEFT FOREARM G18. PLAN OF CARE FOR THE SHIFT DISCUSSED. VERBALIZED UNDERSTANDING. DENIES PAIN . Addendum: 04/01/19 at 2025 by Yanely Garcia LVN CORRECTION: ON HIGH FLOW 02 MACHINE AT 99%.
[2019-04-01 20:00] VITALS: BP 100/50
--- NOTE | 2019-04-01 20:30 | NUR ---
PUT ON BEDPAN REQUESTED, FEELING HE WOULD HAVE A BM, INSTRUCTED TO CALL NURSE WHEN HE IS DONE.
--- NOTE | 2019-04-01 21:30 | NUR ---
TOOK OFF BEDPAN, UNABLE TO HAVE BM BUT HAD BM TODAY REPORTED BY AM NURSE. INSTRUCTED TO CALL NURSE WHEN HE NEED SOMETHING. VERBALIZED UNDERSTANDING.
[2019-04-01] MEDS: MIRTAZAPINE 15 MG TAB PO SCH (21:42)
--- NOTE | 2019-04-01 23:00 | NUR ---
NAKED IN BED, STATED HE FEELS HOT, CHECK AIR CONDITIONING, IN THE COLD POSITION.
--- NOTE | 2019-04-01 23:30 | NUR ---
PULLED UP AND REPOSITIONED IN BED, DOES NOT WANT OUR PILLOWS, FIND THEM TOO THICK FOR HIM. IMPROVISED PILLOWS GIVEN, FEELS BETTER.
--- NOTE | 2019-04-01 23:52 | NUR ---
INFORMED DR. CLARKE BS AT 2137 IS 202, COVERAGE WITH 4 UNITS HUMALOG, NOW IT'S 156. NO NEED FOR COVERAGE JUST CHECK AGAIN. Addendum: 04/02/19 at 0011 by Yanely Garcia LVN CORRECTION: DR. VELOZ NOT DR. CLARKE
[2019-04-02] VITALS (24 sets, daily range): BP systolic 108–188; BP diastolic 55–103
--- NOTE | 2019-04-02 00:30 | NUR ---
SLEEPING COMFORTABLY IN BED, 02 SAT - 98%.
--- NOTE | 2019-04-02 01:40 | NUR ---
FOUND PATIENT OFF ANNUAL, STATED THAT WATER SQUIRTS TO HIS FACE THAT'S WHY HE TOOK IT OFF. DESATURATING TO 71%, RT CALLED. PT. BECAME LETHARGIC, DOES NOT WANT CANNULA TO BE PUT BACK. PUT ON THE CANNULA WITH HELP OF EB JACKSON.
--- NOTE | 2019-04-02 01:44 | NUR ---
CHARGE NURSE MADE AWAKE, RT CAME AND RAPID RESPONSE CALLED.
--- NOTE | 2019-04-02 01:50 | NUR ---
VS CHECKED - BP - 1179/104, HR -112, RR -8, 02 SAT - 72%, BLOOD SUGAR CHECKED - 178. RR TEAM AT THE BEDSIDE. Addendum: 04/02/19 at 0245 by Yanely Garcia LVN CORRECTION: BP - 179/104
--- NOTE | 2019-04-02 02:05 | NUR ---
BP - 154/90, HR -110, PT NOW ON BIPAP, RESTING COMFORTABLY. A/OX4. WILL BE TRANSFERRED TO ICU.
[2019-04-02] MEDS: BLOOD GLUCOSE MONITORING 1 DEV DEV FS SCH ×8 (02:08→23:11)
--- NOTE | 2019-04-02 02:15 | NUR ---
TRANSFERRED TO ICU BED.
--- NOTE | 2019-04-02 02:30 | NUR ---
REPORT GIVEN TO EB FELIX.
--- NOTE | 2019-04-02 02:45 | NUR ---
RECEIVED REPORT FROM [facility] NURSE, REYMUNDO. PT IS AWAKE, AAOX4, ABLE TO RESPOND TO COMMANDS/MAKE NEEDS KNOWN. SKIN IS COOL TO TOUCH, ON BIPAP, RT KATELYNN AT BEDSIDE SETTINGS: IPAP 12, EPAP 5 RR=12, ST ON WEIGHT AND BALANCE CONTROL AGENT [id number]=[phone], BP 145/103, RR=24, TEMP =97.2 AXILLARY. LUNG SOUNDS DIMINISHED/CLEAR ON UPPER/LOWER BIALTERAL LOBES. NO LOUIS IN PLACE, URINAL AT BEDSIDE, NO BM AT THIS TIME. PT ABLE TO ASSIST IN REPOSITIONING. SKIN IS INTACT, SUPERFICIAL SCABBING ON BILATERAL LEGS, PT DENIES PAIN/NAUSE AT THIS TIME. NO IV ACCESS AT THIS TIME. STANDARD PRECAUTIONS, HOB ELEVATED ABOVE 30 DEG, SIDE RAILS UP X4.
--- NOTE | 2019-04-02 03:05 | NUR ---
MAYELA AT A BEDSIDE TO PERFORM CHEST XRAY, PT CALM/RELAXED. TOLERATED WELL. ST W/ HR 109, RR=26, SATING 90%, BP 163/102.
--- NOTE | 2019-04-02 03:18 | NUR ---
DR. VELOZ AT BEDSIDE TO SEE PATIENT, EDUCATED PT ON PLAN OF CARE. UPDATED ON PREVIOUS ELEVATED BP'S, CURRENT BP IS 92/74, THEREFORE NO ORDERS AT THIS PT AWAKE/ABLE TO RESPOND TO COMMANDS APPROPRIATELY.
--- NOTE | 2019-04-02 03:49 | NUR ---
CHANGED SETTING TO IPAP 14 EPAP 6 POST ABG RESULTS
--- NOTE | 2019-04-02 03:50 | NUR ---
RT PACE AT BEDSIDE TO ADMINISTER BREATHING TREATMENT, BP 139/79, SATING 88%-91%, RR=11, HR 109.
[2019-04-02 06:30] LABS: ANION GAP 14.3 (8-16); CARBON DIOXIDE 23.8 mmol/L (21-32); CREATININE 1.5 mg/dL (0.7-1.3); POTASSIUM 4.1 mmol/L (3.5-5.1)
[2019-04-02 06:43] LABS: MAGNESIUM 1.9 mg/dL (1.8-2.4); PHOSPHORUS 4.4 mg/dL (2.5-4.9)
[2019-04-02 06:58] LABS: BASOPHILS % (AUTO) 0.1 % (0.0-2.0); EOSINOPHILS # (AUTO) 0.1 K/uL (0-0.4); EOSINOPHILS % (AUTO) 0.3 % (0.0-4.0); HEMATOCRIT 22.6 % (36-52); HEMOGLOBIN 7.4 g/dL (12.0-18.0); LYMPHOCYTES # (AUTO) 0.6 K/uL (2.0-11.5); LYMPHOCYTES % (AUTO) 3.1 % (20.5-51.1); MEAN CORPUSCULAR HEMOGLOBIN 27 pg (27-31); MEAN CORPUSCULAR HGB CONC 33 g/dL (33-37); MEAN CORPUSCULAR VOLUME 82.1 fL (80-94); MONOCYTES # (AUTO) 0.2 K/uL (0.8-1.0); MONOCYTES % (AUTO) 1.3 % (1.7-9.3); NEUTROPHILS # (AUTO) 17.9 K/uL (1.8-7.7); NEUTROPHILS % (AUTO) 95.2 % (42.2-75.2); PLATELET COUNT (AUTO) 394 K/uL (140-450); RED BLOOD CELL COUNT(AUTO) 2.76 MIL/uL (4.20-6.10); RED CELL DISTRIBUTION WIDTH 14.9 % (11.6-13.7)
[2019-04-02] MEDS: ALBUTEROL SULFATE/IPRATROPIU 3 ML SOL IH SCH ×3 (07:25→19:26)
--- NOTE | 2019-04-02 07:26 | NUR ---
GAVE BEDSIDE REPORT TO MORNING SHIFT SKYE PARSON FOR CONTINUITY OF CARE.
--- NOTE | 2019-04-02 07:26 | NUR ---
RECEIVED PT ON HERNANDEZ V60 ON DOCUMENTED SETTINGS, PT IN HF ASLEEP PT WEARING MED SIZE F\F MASK GEL UNDER MASK BS RALES HHN GIVEN I\L WITH 3 MG DUONEB, BIPAP PLUGGED INTO RED OUTLET
--- NOTE | 2019-04-02 07:30 | NUR ---
RECEIVED BEDSIDE REPORT FROM BUS CLEANER RN. PT IS ASLEEP, AROUSABLE TO NAME, AAOX4, ABLE TO FOLLOW COMMANDS/MAKE NEEDS KNOWN. AFEBRILE, DENIES PAIN OR DISCOMFORT. SINUS TACHYCARDIA ON MONITOR. PT IS ON BIPAP, SETTINGS: IPAP 14, EPAP 6, RR 12, FIO2 100%. LUNG SOUNDS COARSE BILATERALLY. SP02 93%, DENIES SOB. PERIPHERAL IV G18 TO LEFT FOREARM ASYMPTOMATIC, PATENT, INTACT W/ GOOD BLOOD RETURN, SALINE LOCKED. URINAL AT BEDSIDE. PT ABLE TO ASSIST IN REPOSITIONING. SKIN IS DRY, INTACT, WARM TO TOUCH. SCROTAL EDEMA NOTED. HOB ELEVATED AT 30 DEGREES, BED IN LOWEST POSITION LOCKED, CALL LIGHT WITHIN REACH. WILL CONTINUE TO MONITOR.
[2019-04-02 07:49] LABS: WHITE BLOOD COUNT (AUTO) 18.8 K/uL (4.8-10.8)
[2019-04-02] MEDS: FERROUS SULFATE 325 MG TABEC PO SCH ×2 (08:00→16:04)
--- NOTE | 2019-04-02 08:00 | NUR ---
DR. C[place]AM AND RESIDENT GROUP IN TO SEE PT. DR. PARIKH MADE AWARE OF HGB LEVEL 7.4. WILL FOLLOW UP ON ORDERS.
--- NOTE | 2019-04-02 08:50 | NUR ---
PT IS ON BIPAP FIO2 100%, I/E 12/04, ABG SHOWS PO2 57.4, SPO2 90% ON MONITOR. PER DR. PARIKH, HOLD PO MEDS AT THIS TIME, ONLY GIVE SCHEDULED IV AND SUBQ MEDS FOR NOW.
[2019-04-02] MEDS: MULTIVITAMIN 1 TAB PO SCH (09:00)
[2019-04-02] MEDS: LISINOPRIL 5 MG TAB PO SCH (09:00)
[2019-04-02] MEDS: ASCORBIC ACID 500 MG TAB PO SCH (09:00)
[2019-04-02] MEDS: THIAMINE 100 MG TAB PO SCH (09:00)
[2019-04-02] MEDS: FOLIC ACID 1 MG TAB PO SCH (09:00)
[2019-04-02] MEDS ORDERED: LEVOFLOXACIN 750 MG/D5W PREMIX 150 ML IV SCH (09:00)
[2019-04-02] MEDS: ATORVASTATIN 20 MG TAB PO SCH (09:00)
[2019-04-02] MEDS: LACTOBACILLUS RHAMNOSUS GG 1 EACH CAP PO SCH (09:00)
[2019-04-02] MEDS: FUROSEMIDE 20 MG/2 ML VIAL IVP SCH ×2 (09:37→16:04)
[2019-04-02] MEDS: INSULIN LANTUS 100 UNITS/ML 10 ML VIAL SUBQ SCH (09:38)
[2019-04-02] MEDS ORDERED: PROBIOTIC SCREEN 1 EA MISC MC PRN (09:40)
--- NOTE | 2019-04-02 09:50 | NUR ---
AIR LEAK NOTED AROUND BIPAP MASK DUE TO THICK SAMS, O2 SAT IN 80'S. PT STATED OK TO SHAVE SAMS. RT AT BEDSIDE, SAMS SHAVED, O2 SAT ABOVE 92% AT THIS TIME. WILL CONTINUE TO MONITOR.
--- NOTE | 2019-04-02 09:50 | NUR ---
EB CHEUNG SHAVED PTS SAMS PT PLACED ON 15 L OXYMIZER BRIEFLY . PT HAD VERY LARGE LEAK DESATING . BIPAP REPLACED WITH IMPROVED RESULTS SPO2 NOW 96 ON 100 FIO2
[2019-04-02] MEDS: NICOTINE TRANSD SYS 21 MG/24 HR PATCH TD SCH (09:59)
--- NOTE | 2019-04-02 10:00 | NUR ---
PICC INSERTION INFORMED CONSENT SIGNED BY PATIENT.
[2019-04-02] MEDS: DEXT 5% /NACL 0.9% 1,000 ML IV SCH (10:34)
[2019-04-02] MEDS: INSULIN LISPRO SLIDING SCALE 100 UNITS/ML VIAL SUBQ PRN (10:47)
[2019-04-02] MEDS ORDERED: TPN PER PHARMACY MC PRN (10:50)
--- NOTE | 2019-04-02 11:10 | NUR ---
DR. JUAREZ AT BEDSIDE, SEEN, EXAMINED PT AND INSERTED NGT. PT TOLERATED WELL.
--- NOTE | 2019-04-02 11:42 | NUR ---
PICC LINE INSERTION AT BEDSIDE BY PICC LINE NURSE. PT TOLERATING THE PROCEDURE WELL. VSS. WILL CONTINUE TO MONITOR.
[2019-04-02] MEDS ORDERED: VANCOMYCIN PER PHARMACY MC PRN (12:45)
--- NOTE | 2019-04-02 12:51 | NUR ---
PT SEEN BY DR. DAVENPORT. WILL FOLLOW UP ON ORDERS.
[2019-04-02] MEDS ORDERED: metroNIDAZOLE 500 MG/NS PREMIX 100 ML IV SCH (13:00)
[2019-04-02] MEDS: MEROPENEM 500 MG in NACL 0.9% 50 ML IV SCH ×2 (13:30→20:08)
[2019-04-02] MEDS: VANCOMYCIN 1GM/DEXT 5% PREMIX 200 ML IV SCH (14:17)
--- NOTE | 2019-04-02 14:55 | NUR ---
US NEEDLE GUIDED BIOPSY FOR RIGHT THIGH ASPIRATION OF FLUID COLLECTION BEING DONE AT BEDSIDE. PT TOLERATING PROCEDURE WELL. WILL CONTINUE TO MONITOR.
--- NOTE | 2019-04-02 15:00 | NUR ---
PT SEEN BY DR. MAYES. WILL FOLLOW UP ON ORDERS.
--- NOTE | 2019-04-02 15:30 | NUR ---
TUBE FEEDING STARTED. PER DR. PARIKH START AT 10 ML/HR. GOAL IS 30 ML/HR.
[2019-04-02] MEDS: DEXTROSE 50% 50 ML SYR IVP PRN (16:04)
--- NOTE | 2019-04-02 16:55 | NUR ---
PT'S SIGNIFICANT OTHER, VIANNEY GORDILLO CALLED, UPDATES GIVEN ON PT'S CONDITION.
--- NOTE | 2019-04-02 17:07 | NUR ---
DECREASED FIO2 TO 90 SPO2 99
--- NOTE | 2019-04-02 18:00 | NUR ---
BED BATH GIVEN, LINENS CHANGED. VSS. BED IN LOWEST POSITION, HOB 30 DEGREES. SAFETY PRECAUTIONS IN PLACE. WILL CONTINUE TO MONITOR.
--- NOTE | 2019-04-02 18:30 | NUR ---
NO RESIDUALS NOTED FROM NGT FEEDING. PT DENIES NAUSEA OR ANY DISCOMFORT. TF RATE INCREASED TO 20 ML/HR. GOAL IS 30 ML/HR.
--- NOTE | 2019-04-02 18:45 | NUR ---
DR. VELOZ AT BEDSIDE, SEEN AND EXAMINED PT, UPDATES GIVEN ON PT'S CONDITION. WILL FOLLOW UP ON ORDERS.
--- NOTE | 2019-04-02 19:22 | NUR ---
REPORT GIVEN TO ASSET SPECIALIST RN FOR CONTINUITY OF CARE. PT IS IN STABLE CONDITION.
--- NOTE | 2019-04-02 19:45 | NUR ---
BEDSIDE REPORT FROM MORNING SHIFT RNSKYE. PT IS AWAKE,AAOX4, RT JANINA AT BEDSIDE ADMINISTERING BREATHING TREATMENT. PT ABLE TO RESPONDT TO COMMANDS/MAKE NEEDS KNOWN. ST ON CARDIC MONITOR, BP 154/95, RR=13, SATING 91%, HR 111, TEMP 97.0. ON BIPAP 1PAP 14, EPAP 6, FIO2 100%, RR=12. LUNG SOUNDS CLEAR/DIMINISHED ON UPPER/LOWE BILATERAL LOBES. NGT TO FEED GLUCERNA 1.2 AT 20CC/HR. LOUIS IN PLACE, URINE IS CLEAR/ YELLOW. PT HAS SATHYA PICC LINE, INFUSING 1/2NS AT 5CC/HR, AND LEFT FOREARM 18 GUAGE PIV SALINE FLUSHED/LOCK. PT HAS LARGE SCROTAL EDEMA, SUPERFICIAL SCABBING ON LOWER EXTREMITIES. ROD PAIN/NAUSEA AT THIS TIME. FALL RISK AND STANDARD PRECAUTIONS MAINTAINED. PT ABLE TO REPOSITION SELF IN BED. SCDS ON BILATERAL LEGS, HOB ABOVE 20 DEG. PT FIO2 AT START OF SHIFT WAS 90%, RT JANINA DECREASED FIO2 TO 70%, PT STARTED TO DESATURATE IN THE 83-85%, AND RT INCREASED FIO2 TO 100% THEN BACK TO INTIAL FIO2 OF 90%. PT APPEARS WITHOUT DISTRESS.
[2019-04-02] MEDS: MIRTAZAPINE 15 MG TAB PO SCH (20:07)
--- NOTE | 2019-04-02 22:15 | NUR ---
PT TOLERATING BIPAP WELL, VSS WITH HR RANGING FROM 98-110. PT DENIES PAIN/CONSTIPATION/NAUSEA AT THIS TIME. CALM/COOPERATIVE. SCDS ON BILATERAL LEGS.
[2019-04-03] VITALS (25 sets, daily range): BP systolic 107–159; BP diastolic 64–100
[2019-04-03] MEDS: HYDROcodone/APAP 5/325 MG 1 TAB TAB PO PRN (00:47)
--- NOTE | 2019-04-03 00:51 | NUR ---
PATIENT AWAKE, RATED PAIN AT 6/10 IN BACK AND SIDE, NORCO ADMINISTERED. PT DOES NOT WANT PILLOW SUPPORT ON HIS SIDES. ABLE TO INDEPENDENTLY REPOSITION HIMSELF IN BED. FIO2=80%, BP 137/82, SATING 99%. NO FEVER AT THIS TIME.
[2019-04-03] MEDS: BLOOD GLUCOSE MONITORING 1 DEV DEV FS SCH ×8 (01:34→22:30)
--- NOTE | 2019-04-03 01:45 | NUR ---
PT IS CALM, APPEARS TO BE WITHOUT DISTRESS. NO COMPLAINTS OF PAIN. NO BOWEL MOVEMENT AT THIS TIME. PAIN MEDICATION EFFECTIVE, FLACC 0.
--- NOTE | 2019-04-03 03:38 | NUR ---
PATIENT WAS DESATING AT 86-91% AT FIO2=90%, DV=217, RR=20, BP 126/77. CHECKED THE VENT AND READJUSTED MASK. CALLED RT GLASGOW, CURRENTLY AT BEDSIDE TO ASSESS PATIENT. Addendum: 04/03/19 at 0342 by Yudith Moon RN PT CURRENTLY SATING AT 93-97%.
--- NOTE | 2019-04-03 05:11 | NUR ---
PT WAS GIVEN OSKAR PARHAM, RN AT BEDSIDE TO ASSESS AND ASSIST WITH BIPAP MASK. PT DENIES ANY PROBLEMS OR DISCOMFORT SWALLOWING. PT WAS EDUCATED THAT HE MUST KEEP BIPAP MASK ON/IMMEDIATELY TO AVOID FURTHER DESATURATION. WHEN BIPAP MASK REMOVED, PT DESATURATED DOWN TO 66-71, WHEN MASK WAS PLACED BACK ON SATURATIONS RETURNED BACK TO 93-97%. BG=71 AT THIS TIME, NO COVERAGE NEEDED.
[2019-04-03] MEDS: MEROPENEM 500 MG in NACL 0.9% 50 ML IV SCH ×3 (05:17→20:20)
--- NOTE | 2019-04-03 06:04 | NUR ---
PATIENT REFUSED BED BATH AND MORNING CARES AT THIS TIME, STATED HE WAS TOO TIRED AND WANTED TO REST AT THIS TIME. SATING 97-98%.
[2019-04-03 06:26] LABS: HEMATOCRIT 21.8 % (36-52); HEMOGLOBIN 7.2 g/dL (12.0-18.0); MEAN CORPUSCULAR HEMOGLOBIN 27 pg (27-31); MEAN CORPUSCULAR HGB CONC 33 g/dL (33-37); MEAN CORPUSCULAR VOLUME 81.7 fL (80-94); PLATELET COUNT (AUTO) 350 K/uL (140-450); RED BLOOD CELL COUNT(AUTO) 2.67 MIL/uL (4.20-6.10); RED CELL DISTRIBUTION WIDTH 14.8 % (11.6-13.7); WHITE BLOOD COUNT (AUTO) 17.3 K/uL (4.8-10.8)
[2019-04-03] MEDS: ALBUTEROL SULFATE/IPRATROPIU 3 ML SOL IH SCH ×3 (06:27→20:08)
--- NOTE | 2019-04-03 06:27 | NUR ---
REC'D PT ON EVA V60 BIPAP SETTINGS 14/6 RR12 FIO2 100% ALARMS ON AND AUDIBLE AND AMBU BAG AT SIDE OF BIPAP AND BIPAP IS PLUGGED INTO RED OUTLET, I\L TX GIVEN WITH DUONEB 3ML WITH NO ADVERSE REACTION POST TX, B\S ARE DIMINISHED BILATERALLY, PT IS WEARING SMALL FACE MASK WITH PROTETIC GEL IN PLACE. PT IS SLEEPING WITH NO SIGNS OF DISTRESS NOTED
[2019-04-03 06:42] LABS: ANION GAP 10.9 (8-16); CARBON DIOXIDE 26.9 mmol/L (21-32); CREATININE 1.6 mg/dL (0.7-1.3); POTASSIUM 3.8 mmol/L (3.5-5.1)
[2019-04-03 06:49] LABS: MAGNESIUM 1.9 mg/dL (1.8-2.4); PHOSPHORUS 4.7 mg/dL (2.5-4.9)
[2019-04-03 07:27] LABS: EOSINOPHILS % (MANUAL) 1 % (0-4); LYMPHOCYTES % (MANUAL) 4 % (20-46); MONOCYTES % (MANUAL) 2 % (5-12)
--- NOTE | 2019-04-03 07:29 | NUR ---
GAVE BEDSIDE REPORT TO RNOLAMIDE, FOR CONTINUITY OF CARE, ENDORSED BLOOD SUGAR OF 76.
--- NOTE | 2019-04-03 08:00 | NUR ---
IN AM RECEIVED THIS PT A/OX3. ON BIPAP, SOB BUT VS TABLE. PT WAS SLEEPING QUIETLY, EASY TO AROSABLE. NO ACUTE DISTRESS. PT SPEAKS FULL SENTENCES FOLLOWS COMMAND. LUNG SOUND DIMINISHED. ABDOMEN FLAT AND SOFT.
[2019-04-03] MEDS: FOLIC ACID 1 MG TAB PO SCH (08:28)
[2019-04-03] MEDS: LISINOPRIL 5 MG TAB PO SCH (08:29)
[2019-04-03] MEDS: FERROUS SULFATE 325 MG TABEC PO SCH ×2 (08:29→16:37)
[2019-04-03] MEDS: FUROSEMIDE 20 MG/2 ML VIAL IVP SCH ×2 (08:31→16:37)
[2019-04-03] MEDS: THIAMINE 100 MG TAB PO SCH (08:32)
[2019-04-03] MEDS: ATORVASTATIN 20 MG TAB PO SCH (08:32)
[2019-04-03] MEDS: LACTOBACILLUS RHAMNOSUS GG 1 EACH CAP PO SCH (08:33)
[2019-04-03] MEDS: MULTIVITAMIN 1 TAB PO SCH (08:34)
[2019-04-03] MEDS: VANCOMYCIN 1GM/DEXT 5% PREMIX 200 ML IV SCH (08:44)
[2019-04-03] MEDS: ASCORBIC ACID 500 MG TAB PO SCH (08:47)
[2019-04-03] MEDS: INSULIN LANTUS 100 UNITS/ML 10 ML VIAL SUBQ SCH (09:00)
[2019-04-03] MEDS: NICOTINE TRANSD SYS 21 MG/24 HR PATCH TD SCH (09:09)
--- NOTE | 2019-04-03 09:30 | NUR ---
GLUCOSE POC CHECK DONE 77. PT WAS IN LOW BLOOD SUGAR LEVE RECENTLY. DR. Baum WAS CALLED BY MERT PARSON THEN INSULIN LANTUS WAS HOLD IN AM.
--- NOTE | 2019-04-03 10:00 | NUR ---
PT HAS BM IN AM. MEDIUM SIZE. LOSE STOOL.
--- NOTE | 2019-04-03 14:00 | NUR ---
ATTEDNING DR. BERMEO CAME TO VISIT PT. VERBALIZED ORDER TO INCREASED GTUBE FEEDING CAN BE INCREASED BY 10ML/HR Q12 HRS IF PT TOLERATED. GOAL IS 50ML/HR. TUBE FEEDING INCREASED TO 40ML/HR NOW.
--- NOTE | 2019-04-03 14:46 | NUR ---
04/03/19 RD FOLLOW UP COMPLETED PLEASE REFER TO NUTRITION ASSESSMENT UNDER CARE ACTIVITY FOR ESTIMATED NUTRITIONAL NEEDS. 1. CONTINUE GLUCERNA 1.2 AT 30 ML/HR AND PROTEIN POWDER 1 PACK BID --THIS PROVIDED 720 ML OF VOLUME, 984 KCAL, AND 73 GMS OF PROTEIN. IT MET 53% OF PT�S ENERGY NEEDS AND 100% OF PROTEIN NEEDS. 2. CONTINUE REGULAR DIET 3. RECOMMEND GLUCERNA WHEN NUTRITION SUPPORT IS DISCONTINUED 4. RD TO FOLLOW-UP 2-3 DAYS, HIGH RISK EULALIO YANES RD
--- NOTE | 2019-04-03 15:00 | NUR ---
VISIT BY DR. LAGUNA [facility] NO ORDER CHANGED
--- NOTE | 2019-04-03 18:07 | NUR ---
PT WANTED BIPAP OFF TO EAT AND PLACED ON 100% NRB O2 SAT WAS 91% TOLD PT TO KEEP TAKING DEEP BREATHS AND IF HIS O2 SATS DROP HE WILL NEED TO BE BACK ON BIPAP HE UNDERSTANDS
--- NOTE | 2019-04-03 18:45 | NUR ---
PT GETTING UP AND PULLOFF NGTUBE. PT REFUSED GTUBE FEEDING. AND C/O HUNGRY. DINNER WAS OFFERED. PT ATE WELL. PT ATE 100% DINNER. SINING ON BED, LOOKS VERY HAPPY.
--- NOTE | 2019-04-03 19:10 | NUR ---
RECEIVED REPORT FROM Ivan QUIÑONEZ, WILL CONTINUE TO MONITOR. DR. VELOZ AT BEDSIDE TO ASSESS PATIENT. PATIENT CURRENTLY EATING AND ALSO HAS NONREBREATHER MASK. PATIENT TOLERATING WELL, WILL CONTINUE TO MONITOR.
[2019-04-03] MEDS: DEXT 5% /NACL 0.9% 1,000 ML IV SCH (19:13)
--- NOTE | 2019-04-03 19:30 | NUR ---
PATIENT'S GLUCOSE NOT CHECKED. PER A.M NURSE, GLUCOSE CHECKED ALREADY-117, PER AM NURSE, HOLD LANTUS. PATIENT CURRENTLY EATING AND WILL RECHECK. NO SIGNS OF DISTRESS.
--- NOTE | 2019-04-03 19:40 | NUR ---
PATIENT REQUESTING BEDPAN. STOOL AMOUNT IS SMALL, BROWN, WATERY. PATIENT DENIES PAIN AT THIS TIME. SKIN CARE PROVIDED.
[2019-04-03] MEDS: METOPROLOL 25 MG TAB PO SCH (20:19)
[2019-04-03] MEDS: MIRTAZAPINE 15 MG TAB PO SCH (20:19)
--- NOTE | 2019-04-03 20:34 | NUR ---
RECEIVED PATIENT ON NONREBREATHER MASK, PULSE OX SAT 96%. SCHEDULED BREATHING TREATMENT ADMINISTERED. TOLERATED TX WELL, NO ADVERSE SIDE EFFECTS. PATIENT STATES HE DOES NOT LIKE TO WEAR BIPAP. ATTEMPTED TO TITRATE FIO2. PLACED PATIENT ON VENTURI MASK AT 50%, PATIENT DESATURATED TO 50%. PLACED PATIENT BACK ON NONREBREATHER, PULSE OX SAT RETURNED TO 93%. WILL CONTINUE TO MONITOR.
--- NOTE | 2019-04-03 20:45 | NUR ---
PATIENT HAD SECOND WATERY BM,BED HARDY WAS GIVEN, STOOL IS LIQUID, BROWN, AND MODERATE AMOUNT. PATIENT CLEANED AND SKIN CARE PROVIDED. NO REPORTS OF PAIN.
--- NOTE | 2019-04-03 22:25 | NUR ---
PATIENT DESATURATING TO 80% ON NONREBREATHER. PATIENT ALERT AT THIS TIME. ATTEMPTED TO PLACE PATIENT ON BIPAP. PATIENT BECAME STIFF AND UNRESPONSIVE. AGONAL BREATHING. CODE BLUE INITIATED. BAGGED PATIENT WITH 100% OXYGEN. DR. DEL TORO AND DR. VELOZ AT BEDSIDE. RT APONTE AT BEDSIDE WITH MYSELF AND FIRING PIN GAUGERJOY LOADING MACHINE OPERATOR. ED STAFF AT BEDSIDE. PATIENT INTUBATED BY DR. DEL TORO WITH 7.5 ETT. CONFIRMED PLACEMENT WITH CO2 DETECTOR AND EQUAL BILATERAL BREATH SOUNDS. ANCHOR FAST PLACED. AIRWAY SECURE AND PATENT. PLACED ON VENT. INITIAL VENT SETTINGS STARTED BASED OFF IBW. VENT SETTINGS: AC/VC 450, 14, +7, 100%. CXR DONE TO CONFIRM ETT PLACEMENT. XRAY CALLED- INSTRUCTED TO ADVANCE ETT 2 CM. ETT ADVANCED TO 23 CM AT THE GUM LINE. WILL CONTINUE TO MONITOR.
--- NOTE | 2019-04-03 22:27 | NUR ---
RT AT BEDSIDE, PATIENT STARTING TO DESAT TO 80'S%. RT SWITCHING PATIENT BACK TO BIPAP FROM NONREBREATHER MASK. RT NOTICED PATIENT BECAME SUDDENLY UNRESPONSIVE AND HEAD NECK CLENCHED. PATIENT STARTING TO DESAT MORE AND PULSES, RESPIRATIONS, AND BP WERE CHECKED. NO PULSES PALPATED OR AUSCULTATED, RESPIRATIONS BECAME AGONAL, EYES OPEN FIXED NONREACTIVE. CALLED SHYANNE BLUE. DR. WOOTEN AND TEAM ARRIVE IMMEDIATELY, STARTED CPR, DEFIB APPLIED AND CONNECTED, PUSHED 1 OF EPI, APICAL PULSES AUSCULTATED, RADIAL AND FEMORAL PULSES PALPATED, AND A SUCCESSFUL INTUBATION ON FIRST TRY, 7.5 ETT 24 AT [facility]. ORDERED STAT XRAY. DOCTORS ORDERED STAT PROPOFOL DRIP, ATIVAN IVP, SOFT WRIST RESTRAINTS, CBC, BMP AND LABS, AND NG TUBE. PATIENT BECOMING MORE ALERT AND RESPONSIVE. PATIENTS GLUCOSE AT THE TIME IS 187. AND WEIGHT 97 KG. RASS SCORE ORDERED -3. Addendum: 04/04/19 at 0059 by Goldie Badillo RN CORRECTION-STAT ORDERS ARE FOR OGT NOT NG TUBE. Addendum: 04/04/19 at 0342 by Goldie Badillo RN CORRECTION-DRY WEIGHT IS 69 KG.
[2019-04-03] MEDS: INSULIN LISPRO SLIDING SCALE 100 UNITS/ML VIAL SUBQ PRN (22:30)
[2019-04-03] MEDS ORDERED: CODE BLUE PARTICIPANT 1 EA MISC MC ONE (22:30)
[2019-04-03] MEDS ORDERED: EPINEPHrine PFS 0.1 MG/ML SYR IVP ONE (22:30)
[2019-04-03] MEDS ORDERED: MIDAZOLAM 2 MG/2 ML VIAL IV ONE (22:40)
[2019-04-03] MEDS: PROPOFOL 1000 MG/100 ML PREMIX 100 ML IV PRN (22:45)
[2019-04-03] MEDS ORDERED: LORazepam 2 MG/ML VIAL IVP PRN (22:45)
--- NOTE | 2019-04-03 22:45 | NUR ---
OGT INSERTED, XRAY WAITING AT BEDSIDE TO CHECK FOR PLACEMENT.
[2019-04-03] MEDS ORDERED: PROPOFOL 1000 MG/100 ML PREMIX 100 ML IV ONE (22:49)
--- NOTE | 2019-04-03 22:56 | NUR ---
PER DR. VELOZ'S STAT ORDER, PATIENT GIVEN 2 MG ATIVAN IVP. PATIENT RESPONSIVE, INDICATING HE WANTS THE TUBE OUT, PATIENT ATTEMPTING TO REMOVE TUBES. WILL FOLLOWUP ON NEW ORDERS.
[2019-04-03] MEDS ORDERED: LORazepam 2 MG/ML VIAL ONE (23:01)
--- NOTE | 2019-04-03 23:03 | NUR ---
DR. WOOTEN CALLED TO REPORT PATIENTS ETT NEEDS TO COME DOWN 2 CM. PATIENT'S SATURATION AT 87%.
[2019-04-03 23:44] LABS: HEMATOCRIT 21.8 % (36-52); HEMOGLOBIN 7.2 g/dL (12.0-18.0); MEAN CORPUSCULAR HEMOGLOBIN 27 pg (27-31); MEAN CORPUSCULAR HGB CONC 33 g/dL (33-37); MEAN CORPUSCULAR VOLUME 82.5 fL (80-94); PLATELET COUNT (AUTO) 313 K/uL (140-450); RED BLOOD CELL COUNT(AUTO) 2.65 MIL/uL (4.20-6.10); RED CELL DISTRIBUTION WIDTH 14.7 % (11.6-13.7); WHITE BLOOD COUNT (AUTO) 16.1 K/uL (4.8-10.8)
[2019-04-03 23:47] LABS: ALBUMIN 0.7 g/dL (3.4-5.0); ANION GAP 11.6 (8-16); CARBON DIOXIDE 27.2 mmol/L (21-32); CREATININE 1.6 mg/dL (0.7-1.3); POTASSIUM 3.8 mmol/L (3.5-5.1); TOTAL BILIRUBIN 0.2 mg/dL (0.0-1.0)
[2019-04-03 23:53] LABS: EOSINOPHILS % (MANUAL) 2 % (0-4); LYMPHOCYTES % (MANUAL) 1 % (20-46); MONOCYTES % (MANUAL) 0 % (5-12)
--- NOTE | 2019-04-03 23:55 | NUR ---
DR. VELOZ AT BEDSIDE WITH PATIENT'S MOTHER TO UPDATE ON PATIENT STATUS.
[2019-04-04] VITALS (101 sets, daily range): BP systolic 105–162; BP diastolic 61–108
--- NOTE | 2019-04-04 00:40 | NUR ---
CALLED DR. VELOZ TO FOLLOW-UP REGARDING THE RESTRAINTS ORDER AND ALSO THE TUBE FEEDING ORDER.
[2019-04-04] MEDS ORDERED: FUROSEMIDE 20 MG/2 ML VIAL IVP SCH (01:00)
[2019-04-04] MEDS: VANCOMYCIN 1GM/DEXT 5% PREMIX 200 ML IV SCH ×2 (01:48→21:03)
[2019-04-04] MEDS: BLOOD GLUCOSE MONITORING 1 DEV DEV FS SCH ×9 (01:53→21:11)
[2019-04-04] MEDS: INSULIN LISPRO SLIDING SCALE 100 UNITS/ML VIAL SUBQ PRN ×3 (01:56→08:24)
--- NOTE | 2019-04-04 04:40 | NUR ---
PATIENT CHANGED, GIVEN BED BATH AND SKIN CARE PROVIDED. PATIENT HAD A VERY LARGE BM, WATERY AND LOOSE. PATIENT ON PROPOFOL DRIP RASS -3
[2019-04-04 05:59] LABS: ANION GAP 10.3 (8-16); CARBON DIOXIDE 27.1 mmol/L (21-32); CREATININE 1.4 mg/dL (0.7-1.3); POTASSIUM 3.4 mmol/L (3.5-5.1)
[2019-04-04] MEDS: MEROPENEM 500 MG in NACL 0.9% 50 ML IV SCH ×3 (06:11→20:18)
--- NOTE | 2019-04-04 07:20 | NUR ---
RECEIVED BEDSIDE REPORT FROM [facility] MERCHANDISER RN, RAY. PT IS ETT TO VENT, WITH SETTING OF FIO2 100%, RR14, VT 450, PEEP 7. PT RASS -3 ON PROPOFOL DRIP 20MCG/KG/MIN. DRY WEIGHT 69KG. SR ON MONITOR. LUNG SOUNDS COARSE BILATERALLY. BOWELS SOUND ACTIVE IN ALL QUADRANTS. HEART SOUND S1,S2 HEARD. SPO2 100%, RR15. PUPIL UNEQUAL IN SIZE, RIGHT PUPIL 2MM, LEFT PUPIL 4MM. PERIPHERAL IV TO LEFT FA FLUSHED, ASYMPTOMATIC, PATENT, SALINE LOCKED. PICC LINE TO RIGHT UA, FLUSHED, ASYMPTOMATIC, PATENT, TKO WITH NS 5ML/HR AND RUNNING PROPOFOL. SKIN IS DRY, INTACT, WARM TO TOUCH WITH SCABS TO ELBOW AND BLE. PT IS ON SOFT WRIST RESTRAINT, CAP REFILL LESS THAN 3 SEC ON BOTH SIDES. PULSES ARE PALPABLE ON ALL EXTREMITIES, EQUAL ON BOTH SIDES. SCROTAL EDEMA NOTED. BLE HAS PITTING EDEMA +2. PT STILL HAS DIARRHEA, WILL CLEAN PT LATER. LOUIS CATH IN PLACE, DRAINING CLEAR YELLOW URINE. HOB ELEVATED AT 30 DEGREES, BED IN LOWEST POSITION LOCKED, CALL LIGHT WITHIN REACH. WILL CONTINUE TO MONITOR.
[2019-04-04] MEDS ORDERED: KCL 20 MEQ/WATER INJ PREMIX 100 ML IV SCH ×2 (07:30→13:00)
--- NOTE | 2019-04-04 07:30 | NUR ---
GAVE REPORT TO NIGHTSHIFT NURSES CAROL ANN FOR CONTINUITY OF CAREJEANNE AT BEDSIDE TO RECEIVE UPDATE. Addendum: 04/04/19 at 0806 by Goldie Badillo RN CORRECTION-DAY SHIFT NURSES NOT NIGHTSHIFT NURSES.
[2019-04-04] MEDS: PROPOFOL 1000 MG/100 ML PREMIX 100 ML IV PRN ×2 (08:05→17:17)
--- NOTE | 2019-04-04 08:10 | NUR ---
ORAL CARE DONE. PT WAS CLEANED, CHUX CHANGED. PT STILL HAS LOOSE STOOL. SKIN INTACT, BLANCHABLE REDNESS AROUND ANUS..
[2019-04-04] MEDS: FERROUS SULFATE 325 MG TABEC PO SCH (08:21)
[2019-04-04] MEDS: FOLIC ACID 1 MG TAB PO SCH (08:33)
[2019-04-04] MEDS: MULTIVITAMIN 1 TAB PO SCH (08:34)
[2019-04-04] MEDS: ATORVASTATIN 20 MG TAB PO SCH (08:34)
[2019-04-04] MEDS: THIAMINE 100 MG TAB PO SCH (08:34)
[2019-04-04] MEDS: METOPROLOL 25 MG TAB PO SCH ×2 (08:34→20:18)
[2019-04-04] MEDS: LACTOBACILLUS RHAMNOSUS GG 1 EACH CAP PO SCH (08:34)
[2019-04-04] MEDS: ASCORBIC ACID 500 MG TAB PO SCH (08:35)
[2019-04-04] MEDS: FUROSEMIDE 20 MG/2 ML VIAL IVP SCH ×2 (08:35→16:43)
[2019-04-04] MEDS: ALBUTEROL SULFATE/IPRATROPIU 3 ML SOL IH SCH ×3 (08:43→19:30)
--- NOTE | 2019-04-04 08:43 | NUR ---
RECEIVED ON Target SoftwareSCAPE R860 VENTILATOR PLUGGED INOT RED OUTLET TOLERATING WELL WITHOUT INCIDENT TO AN ENDOTRACHEAL TUBE #7.5 SECURED AT 23cm TEETH/GUM LINE WITH AN ANCHOR FAST CUFF PRESSURE CHECKED NOTED AMBU BAG AT BEDSIDE LOC SEDATED BREATH SOUNDS COARSE RALES BILATERAL WITH EQUAL CHEST RISE ENDOTRACHEAL TUBE SUCTION FOR NO RETURN AIRWAY PATENT SATURATION 100% ON FIO2 OF 100% POST HHN THERAPY TITRATED FIO2 TO 80% PEEP TO 5 cmH2O DAX/RN NOTIFIED
--- NOTE | 2019-04-04 09:59 | NUR ---
ABG SAMPLE REPORT REVIEWED DR. BECKIE DAVENPORT MD AT BEDSIDE TITRATED FIO2 TO 65% NEW ORDER: KEPP SATURATION GREATER THAN 90%
[2019-04-04] MEDS: NICOTINE TRANSD SYS 21 MG/24 HR PATCH TD SCH (10:10)
--- NOTE | 2019-04-04 10:10 | NUR ---
DR. DAVENPORT WAS IN ICU. PROPOFOL HOLD FOR [address] DAVENPORT. PT ABLE TO FOLLOW COMMAND. RESUMED PROPOFOL DRIP AT THE SAME RATE PER DR. DAVENPORT.
[2019-04-04] MEDS: INSULIN LANTUS 100 UNITS/ML 10 ML VIAL SUBQ SCH (10:13)
--- NOTE | 2019-04-04 12:21 | NUR ---
SATURATION 100% ON FIO2 OF 65% TITRATED FIO2 TO 50% KRISTAL/EB NOTIFIED Addendum: 04/04/19 at 1230 by Terrence Ngero RT RESTING COMFORTABLE NO DISTRESS NOTED EQUAL CHEST RISE
--- NOTE | 2019-04-04 12:27 | NUR ---
RESIDUAL 0 NOTED. G-TUBE FEEDING STARTED AT 10 ML/HR. KEPT HOB ELEVATED. Addendum: 04/04/19 at 1648 by Shanti Reveles RN MICHAEL PT CHARTING
--- NOTE | 2019-04-04 13:35 | NUR ---
EVALUATED BY DR. MAYES. UPDATED PT STATUS AND LABS.
--- NOTE | 2019-04-04 13:56 | NUR ---
SEDATED RESTING WELL NO EVIDENCE OF SOB NOTED EQUAL CHEST RISE ENDOTRACHEAL TUBE SUCTIONING FOR MODERATE THICK YELLOW SECRETIONS AIRWAY PATENT SPUTUM SAMPLE COLLECTED FOR CULTURE
--- NOTE | 2019-04-04 14:58 | NUR ---
DR. JUAREZ IN TO SEE PT. UPDATED PT STATUS. MADE AWARE THAT PT HAVE DIARRHEA X2, AND PENDING C.DIFF RESULT. SAID WILL DO EGD-COLONOSCOPY ON MONDAY.
--- NOTE | 2019-04-04 16:05 | NUR ---
RESTING INN BED. NO SOB OR ACUTE RESPIRATORY DISTRESS NOTED. VSS. HOB ELEVATED. IV SITE INTACT. CONTINUE TO MONITOR.
--- NOTE | 2019-04-04 16:33 | NUR ---
RESIDUAL NOTED 80 ML. CONTINUED G-TUBE FEEDING AT 10 ML/HR. HOB ELEVATED. Addendum: 04/04/19 at 1634 by Shanti Reveles RN MICHAEL PT CHARTING
[2019-04-04] MEDS: FERROUS SULFATE 300 MG/5 ML UDC PO SCH (16:42)
--- NOTE | 2019-04-04 16:47 | NUR ---
WRONG PT CHARTING
--- NOTE | 2019-04-04 16:50 | NUR ---
G TUBE RESIDUAL 0ML.
--- NOTE | 2019-04-04 17:16 | NUR ---
SEDATED NO EVIDENCE OF PULMONARY DISTRESS NOTED ENDOTRACHEAL SUCTION FOR SMALL THICK YELLOWS SECRETIONS AIRWAY PATENT INCREASED Vt TO 500 L FOR 7 ml/kg KRISTAL/RN NOTIFIED
--- NOTE | 2019-04-04 17:28 | NUR ---
CALLED DR TAVERAS, ASKED IF MD STILL WANT PROTEIN PACKET BID ALONG WITH THE TUBE FEEDING. THE NEW TUBE FEEDING ORDER DOESN'T HAVE THAT. SAID NO, BECAUSE PT WAS JUST INTUBATED LAST NIGHT. MADE CHARGE NURSE AWARE.
[2019-04-04] MEDS ORDERED: AMYLASE/LIPASE/PROTEASE 1 CAPDR PO SCH (18:55)
[2019-04-04] MEDS ORDERED: Z-GUARD PASTE TP PRN (18:55)
--- NOTE | 2019-04-04 19:30 | NUR ---
RECEIVED REPORT FROM MORNING RN, DAX/KRISTAL, FOR CONTINUITY OF CARE. VS STABLE AT THIS TIME. AFEBRILE. PERRL. FLACC 0. RASS -3. PT SEDATED WITH PROPOFOL 25MCG/KG/MIN WITH DRY WT OF 69KG. RESPIRATIONS EVEN AND UNLABORED. ETT TO VENT WITH SETTINGS: FIO2 55%, TV 500, R14, AND PEEP 5. LUNG SOUNDS AUSCULTATED. COARSE DIMINISHED LUNG SOUNDS. SR ON MONITOR. PULSES PALPABLE IN ALL EXTREMITIES. ABDOMEN ROUND, SOFT AND NONDISTENDED. BS ACTIVE IN ALL QUADRANTS. OGT IN PLACE. CHECKED PLACEMENT AND STILL IN PLACE. GLUCERNA RUNNING AT 30ML/HR. NO RESIDUAL ASPIRATED. LOUIS CATHETER IN PLACE. DRAINING CLEAR AND YELLOW URINE. RIGHT UPPER ARM PICC IN PLACE IN PLACE THAT IS PATENT AND ASYMPTOMATIC. PT HAS LEFT FOREARM PERIPHERAL IV ACCESS 20G THAT IS PATENT INTACT AND ASYMPTOMATIC WELL. HOB AT 30 DEGREES. ALL SAFETY PRECAUTIONS ARE IN PLACE. SCD NOTED. WILL CONTINUE TO MONITOR PT.
--- NOTE | 2019-04-04 19:30 | NUR ---
REPORT GIVEN TO COMMERCIAL SERVICE TECHNICIAN RNALTHEA. PT IN STABLE CONDITION.
--- NOTE | 2019-04-04 19:41 | NUR ---
RECEIVED PATIENT ENDOTRACHEALLY INTUBATED WITH 7.5 ETT AT 23 CM AT THE GUM LINE TO VENT ON SETTINGS: AC/VC 500, 14, +5, 55%. VENT CHECK DONE. VENT ALARMS ON AND AUDIBLE. VENT PLUGGED INTO RED OUTLET. AMBU BAG AT BEDSIDE. AIRWAY SECURE AND PATENT. SUCTIONED SCANT AMOUNT OF THIN, YELLOW SECRETIONS. SCHEDULED BREATHING TREATMENT ADMINISTERED. TOLERATED TX WELL, NO ADVERSE SIDE EFFECTS. NO RESPIRATORY DISTRESS NOTED AT THIS TIME. WILL CONTINUE TO MONITOR.
[2019-04-04] MEDS: MIRTAZAPINE 15 MG TAB PO SCH (20:18)
[2019-04-04] MEDS: DEXTROSE 50% 50 ML SYR IVP PRN (20:18)
--- NOTE | 2019-04-04 20:40 | NUR ---
PT HAD ONE BM THAT IS LOOSE. MODERATE IN AMOUNT, AND GREEN TO BROWN IN COLOR. PADS WERE CHANGED. PT REPOSITIONED. PT TOLERATED BEING TURNED FAIRLY. NO SOB NOTED. ORAL CARE PROVIDED TO PT WELL.
--- NOTE | 2019-04-04 21:30 | NUR ---
VENT CHECK DONE. VENT ALARMS ON AND AUDIBLE. AMBU BAG AT BEDSIDE. TITRATED FIO2 TO 50%, PULSE OX SAT 95%. RN NOTIFIED. NO RESPIRATORY DISTRESS NOTED AT THIS TIME. WILL CONTINUE TO MONITOR.
--- NOTE | 2019-04-04 22:24 | NUR ---
SR ON MONITOR. VS REMAINS STABLE. NO CHANGE IN PT'S CONDITION AT THIS TIME. RESPIRATIONS EVEN AND UNLABORED WITH OXYGEN SATURATION AT 97%. WILL CONTINUE TO MONITOR PT.
--- NOTE | 2019-04-04 23:00 | NUR ---
DR. SOLIS AT BEDSIDE. UPDATED HIM REGARDING PT'S CONDITION.
[2019-04-05] VITALS (107 sets, daily range): BP systolic 80–169; BP diastolic 36–99
--- NOTE | 2019-04-05 00:47 | NUR ---
phone call made to dr james; made aware pts bp 160/89, rechecked 169/99.awaiting order
[2019-04-05] MEDS ORDERED: hydrALAZINE 20 MG/ML VIAL IVP SCH (01:00)
[2019-04-05] MEDS: BLOOD GLUCOSE MONITORING 1 DEV DEV FS SCH ×8 (01:09→22:28)
[2019-04-05] MEDS: DEXTROSE 50% 50 ML SYR IVP PRN ×3 (01:09→11:25)
[2019-04-05] MEDS ORDERED: DEXTROSE 10% 500 ML IV SCH (01:10)
--- NOTE | 2019-04-05 01:10 | NUR ---
DR. VELOZ NOTIFIED REGARDING PT'S CURRENT BLOOD GLUCOSE 12; D50 IVP GIVEN PER ORDER. WILL RECHECK BLOOD GLUCOSE AGAIN AFTER 30 MINUTES. IVF SWITCHED TO D10 AT 30ML/HR. WILL CONTINUE TO MONITOR PT FOR S/S OF HYPO/HYPERGLYCEMIA.
[2019-04-05] MEDS: PROPOFOL 1000 MG/100 ML PREMIX 100 ML IV PRN ×4 (02:13→19:17)
[2019-04-05] MEDS ORDERED: DEXTROSE 50% 50 ML SYR IVP ONE (02:39)
--- NOTE | 2019-04-05 03:20 | NUR ---
MORNING CARE PROVIDED TO PT. TOLERATED BEING TURNED AND REPOSITIONED. RESPIRATIONS EVEN AND UNLABORED. NO BM NOTED AT THIS TIME. STOOL SPECIMEN NEEDED. WILL COMMUNICATE TO THE NEXT SHIFT. HOB KEPT AT 30 DEGREES. NO OGT RESIDUAL ASPIRATED AT THIS TIME.
[2019-04-05] MEDS: MEROPENEM 500 MG in NACL 0.9% 50 ML IV SCH ×3 (04:59→21:20)
[2019-04-05 06:06] LABS: ANION GAP 8.4 (8-16); CARBON DIOXIDE 30.5 mmol/L (21-32); CREATININE 1.1 mg/dL (0.7-1.3)
[2019-04-05 06:12] LABS: PHOSPHORUS 3.2 mg/dL (2.5-4.9)
[2019-04-05 06:14] LABS: POTASSIUM 2.9 mmol/L (3.5-5.1)
--- NOTE | 2019-04-05 06:24 | NUR ---
DR Maksim TAVERAS AT BEDSIDE TO SEE PT. UPDATED HER REGARDING PT'S CONDITION.
[2019-04-05] MEDS ORDERED: POTASSIUM CHLORIDE 40 MEQ, LIDOCAINE MPF 1% - 5 mL VIAL 25 MG in NACL 0.9% 250 ML IV ONE (06:40)
[2019-04-05] MEDS ORDERED: KCL 20 MEQ/WATER INJ PREMIX 200 ML IV SCH (06:45)
[2019-04-05] MEDS: ALBUTEROL SULFATE/IPRATROPIU 3 ML SOL IH SCH ×3 (07:03→19:18)
--- NOTE | 2019-04-05 07:11 | NUR ---
RECEIVED INTUBATED PT WITH A 7.5 ETT SECURED @23 TEETH/GUMS ON VENT. SETTINGS AC/VC 14, VT 500, PEEP 5 AND FIO2 45%. PT IS SEDATED BUT NOT IN ANY DISTRESS. AIRWAY IS PATENT. VENT ALARMS ON AND FUNCTIONING. AMBU BAG IS PRESENT NEAR BEDSIDE. WILL CONTINUE TO MONITOR.
--- NOTE | 2019-04-05 07:25 | NUR ---
REPORT GIVEN TO MORNING RN, DAX, FOR CONTINUITY OF CARE. VS STABLE AT THIS TIME.
--- NOTE | 2019-04-05 07:25 | NUR ---
RECEIVED REPORT FROM MANAGER INTERNAL RN. PT RESTING IN BED. SKIN DRY AND WARM TO TOUCH. ON ETT TO VENT AC FIO2 45% TV 500 RR 14 PEEP 5. OG-TUBE IN PLACE. 0 RESIDUAL. GLUCERNA FEEDING AT 30 ML/HR. LUNGS COARSE. SATHYA PICC LINE, INTACT. GOOD BLOOD RETURNS. FLUSHED. DEX 10% INFUSING AT 30 ML/HR. PROPOFOL INFUSING AT 30 MCG/KG/MIN. RASS -3. DRY WEIGHT 69KG. LFA 20 G, SALINE LOCK. INTACT LINE. FLUSHED. ABDOMEN SOFT, ROUND AND NON-TENDER. HYPOACTIVE BOWEL SOUND. SCROTAL EDEMA NOTED. F/C IN PLACE. EDEMATOUS BOTH UPPER AND LOWER EXTREMITIES. DRY SKIN, SCABS ON BOTH LOWER EXTREMITIES. KEPT HOB ELEVATED. BED IN LOW POSITION LOCKED.
[2019-04-05 07:36] LABS: BASOPHILS # (AUTO) 0.1 K/uL (0.00-0.22); BASOPHILS % (AUTO) 0.4 % (0.0-2.0); EOSINOPHILS # (AUTO) 0.5 K/uL (0-0.4); EOSINOPHILS % (AUTO) 3.9 % (0.0-4.0); HEMATOCRIT 20.6 % (36-52); LYMPHOCYTES # (AUTO) 0.9 K/uL (2.0-11.5); LYMPHOCYTES % (AUTO) 6.9 % (20.5-51.1); MEAN CORPUSCULAR HEMOGLOBIN 27 pg (27-31); MEAN CORPUSCULAR HGB CONC 33 g/dL (33-37); MEAN CORPUSCULAR VOLUME 81.8 fL (80-94); MONOCYTES # (AUTO) 0.1 K/uL (0.8-1.0); MONOCYTES % (AUTO) 1.1 % (1.7-9.3); NEUTROPHILS # (AUTO) 11.2 K/uL (1.8-7.7); NEUTROPHILS % (AUTO) 87.7 % (42.2-75.2); PLATELET COUNT (AUTO) 259 K/uL (140-450); RED BLOOD CELL COUNT(AUTO) 2.51 MIL/uL (4.20-6.10); RED CELL DISTRIBUTION WIDTH 14.8 % (11.6-13.7); WHITE BLOOD COUNT (AUTO) 12.8 K/uL (4.8-10.8)
[2019-04-05 07:45] LABS: HEMOGLOBIN 6.7 g/dL (12.0-18.0)
[2019-04-05] MEDS ORDERED: INSULIN LANTUS 100 UNITS/ML 10 ML VIAL SUBQ SCH (09:00)
[2019-04-05] MEDS: AMYLASE/LIPASE/PROTEASE 1 CAPDR PO SCH ×3 (09:00→17:37)
[2019-04-05] MEDS: FERROUS SULFATE 300 MG/5 ML UDC PO SCH ×2 (09:00→17:37)
[2019-04-05] MEDS: ATORVASTATIN 20 MG TAB PO SCH (09:04)
[2019-04-05] MEDS: FOLIC ACID 1 MG TAB PO SCH (09:04)
[2019-04-05] MEDS: ASCORBIC ACID 500 MG TAB PO SCH (09:04)
[2019-04-05] MEDS: LACTOBACILLUS RHAMNOSUS GG 1 EACH CAP PO SCH (09:04)
[2019-04-05] MEDS: MULTIVITAMIN 1 TAB PO SCH (09:05)
[2019-04-05] MEDS: THIAMINE 100 MG TAB PO SCH (09:05)
[2019-04-05] MEDS: NICOTINE TRANSD SYS 21 MG/24 HR PATCH TD SCH (09:05)
[2019-04-05] MEDS: METOPROLOL 25 MG TAB PO SCH ×2 (09:06→21:21)
[2019-04-05] MEDS: FAMOTIDINE 20 MG/2 ML VIAL IV SCH (10:03)
[2019-04-05] MEDS: FUROSEMIDE 20 MG/2 ML VIAL IVP SCH ×2 (10:03→17:38)
--- NOTE | 2019-04-05 10:15 | NUR ---
THE REPEATED CBC SHOWED HGB 7.2 DR TAVERAS ORDERED TO D/C BLOOD TRANSFUSION AT THIS TIME.
[2019-04-05 10:41] LABS: BASOPHILS % (AUTO) 0.2 % (0.0-2.0); EOSINOPHILS # (AUTO) 0.6 K/uL (0-0.4); EOSINOPHILS % (AUTO) 4.6 % (0.0-4.0); HEMATOCRIT 21.6 % (36-52); LYMPHOCYTES # (AUTO) 1.6 K/uL (2.0-11.5); LYMPHOCYTES % (AUTO) 12.6 % (20.5-51.1); MEAN CORPUSCULAR HEMOGLOBIN 27 pg (27-31); MEAN CORPUSCULAR HGB CONC 33 g/dL (33-37); MEAN CORPUSCULAR VOLUME 81.5 fL (80-94); MONOCYTES # (AUTO) 0.1 K/uL (0.8-1.0); NEUTROPHILS # (AUTO) 10.5 K/uL (1.8-7.7); NEUTROPHILS % (AUTO) 81.6 % (42.2-75.2); PLATELET COUNT (AUTO) 250 K/uL (140-450); RED BLOOD CELL COUNT(AUTO) 2.65 MIL/uL (4.20-6.10); RED CELL DISTRIBUTION WIDTH 14.7 % (11.6-13.7); WHITE BLOOD COUNT (AUTO) 12.9 K/uL (4.8-10.8)
[2019-04-05 10:44] LABS: HEMOGLOBIN 7.2 g/dL (12.0-18.0)
--- NOTE | 2019-04-05 11:05 | NUR ---
HOLD PROPOFOL PT. IS AWAKE AND RESPONSE TO VERBAL COMMAND AFTER 5MINITES HIS FATHER AND SON INCLUDE FAMILIES AT BEDSIDE. PATIENT RECOGNIZED HIS FAMILY MEMBERS.
--- NOTE | 2019-04-05 11:25 | NUR ---
BS 52. 50% DEX IVP ADMINISTERED. DR. TAVERAS MADE AWARE. PT ON CONTINUOUS FEEDING. DEX 10% INFUSING AT 30 ML/HR
--- NOTE | 2019-04-05 11:30 | NUR ---
NO SOB OR ACUTE RESPIRATORY DISTRESS NOTED. CONTINUE ON SAME VENT SETTING. RESIDUAL 20 ML NOTED. CONTINUE ON OG-TUBE FEEDING. IV SITE INTACT. HOB ELEVATED. BED IN LOW POSITION LOCKED. CONTINUE TO MONITOR.
[2019-04-05] MEDS ORDERED: ACETAMINOPHEN 325 MG TAB PO SCH (12:00)
[2019-04-05] MEDS ORDERED: FUROSEMIDE 20 MG TAB PO SCH (12:00)
--- NOTE | 2019-04-05 12:23 | NUR ---
STOOL SAMPLE FOR FECAL FAT QUANTITATIVE TAKE TO THE LAB.
[2019-04-05] MEDS: DEXTROSE 10% 1,000 ML IV SCH (12:30)
--- NOTE | 2019-04-05 13:14 | NUR ---
04/05/19 RD FOLLOW UP COMPLETED PLEASE REFER TO NUTRITION PROGRESS NOTE UNDER CARE ACTIVITY FOR ESTIMATED NUTRITION NEEDS. RD RECOMMENDATIONS: 1. RECOMMEND INCREASING GLUCERNA 1.2 AT 60 ML/HR TO BETTER MEET NUTRITIONAL NEEDS. --THIS WILL PROVIDE 1440 TOTAL ML VOLUME, 1728 KCAL, 86 GM OF PROTEIN, AND 1159 ML OF FREE WATER, WHICH WILL BE ADEQUATE TO MEET 93% OF PT�S ENERGY NEEDS AND 100% OF PROTEIN NEEDS. --THIS MAY ALSO HELP WITH HYPOGLYCEMIA EPISODES BY PROVIDING MORE CHO. 2. RECOMMEND TO DISCONTINUE PROSOURCE TID IF GLUCERNA 1.2 WILL BE RUNNING AT 60 ML/HR. 3. RD TO FOLLOW-UP 2-3 DAYS, HIGH RISK KELL HORAN, RD
--- NOTE | 2019-04-05 14:38 | NUR ---
CLEANED AND REPOSITIONED. CONTINUE ON PROPOFOL RASS-3. NO SOB OR RESPIRATORY DISTRESS NOTED. HOB ELEVATED. BED IN LOW POSITIONED LOCKED.
--- NOTE | 2019-04-05 15:37 | NUR ---
PT NOT IN ANY DISTRESS, ASLEEP AT THIS TIME. TOLERATING VENT SETTINGS WELL. WILL CONTINUE TO MONITOR.
--- NOTE | 2019-04-05 15:45 | NUR ---
PT EVALUATED BY DR. JUAREZ. PLANNED FOR EGD FOR DU-BIOPSY/COLONOSCOPY ON MONDAY.
[2019-04-05] MEDS: DIPHENOXYLATE /ATROPINE 2.5 MG TAB PO PRN (16:14)
--- NOTE | 2019-04-05 17:09 | NUR ---
PT APPEARS TO BE RELAXED RESTING IN BED. ON SEDATION. RASS -3. VSS. RT AT BEDSIDE.
--- NOTE | 2019-04-05 17:15 | NUR ---
PT REMAINS ON DOCUMENTED VENT SETTINGS. ETT IS SECURE WITH A PATENT AIRWAY. PT IS NOT IN ANY DISTRESS AT THIS TIME. VENT ALARMS REMAIN ON AND FUNCTIONING.
[2019-04-05 18:19] LABS: BASOPHILS # (AUTO) 0.1 K/uL (0.00-0.22); BASOPHILS % (AUTO) 0.9 % (0.0-2.0); EOSINOPHILS # (AUTO) 0.6 K/uL (0-0.4); HEMATOCRIT 21.3 % (36-52); HEMOGLOBIN 7.1 g/dL (12.0-18.0); LYMPHOCYTES # (AUTO) 1.2 K/uL (2.0-11.5); LYMPHOCYTES % (AUTO) 10.9 % (20.5-51.1); MEAN CORPUSCULAR HEMOGLOBIN 27 pg (27-31); MEAN CORPUSCULAR HGB CONC 33 g/dL (33-37); MEAN CORPUSCULAR VOLUME 81.8 fL (80-94); MONOCYTES # (AUTO) 0.2 K/uL (0.8-1.0); MONOCYTES % (AUTO) 1.4 % (1.7-9.3); NEUTROPHILS # (AUTO) 9.2 K/uL (1.8-7.7); NEUTROPHILS % (AUTO) 81.8 % (42.2-75.2); PLATELET COUNT (AUTO) 222 K/uL (140-450); RED CELL DISTRIBUTION WIDTH 14.6 % (11.6-13.7); WHITE BLOOD COUNT (AUTO) 11.2 K/uL (4.8-10.8)
[2019-04-05 18:32] LABS: ANION GAP 10.8 (8-16); CARBON DIOXIDE 27.3 mmol/L (21-32); CREATININE 0.8 mg/dL (0.7-1.3); POTASSIUM 3.1 mmol/L (3.5-5.1)
--- NOTE | 2019-04-05 19:15 | NUR ---
RECEIVED REPORT FROM AM NURSE. PT AT BED EYES CLOSED. BREATHING REGULARLY. PERRL 3MM. SLUGGISH. RASS -3, S1 S2 PRESENT, REGULAR, PULSES 2+ BILATERAL UPPER AND LOWER EXTREMITIES, CAP REFILL <3S, LUNG SOUNDS CLEAR THROUGHOUT, ETT TO VENT, PT SEDATED, FC IN PLACE, OG TUBE TO FEEDING, ABDOMEN SOFT, ROUND, NONDISTENDED, RIGHT THIGH ABSCESS, SKIN INTACT, COLOR APPROPRIATE FOR ETHNICITY. LEFT FA 20 GAUGE IV FLUIDS RUNNING, RIGHT PICC LINE. WILL CONTINUE TO MONITOR PT. Addendum: 04/05/19 at 2246 by Bretin Dye RN DRY WEIGHT 69 KG. HOB AT 30 DEGREES, SIDERAILS UP X2, CALL LIGHT WITHIN REACH.
--- NOTE | 2019-04-05 19:20 | NUR ---
REPORT GIVEN TO TEXTILE MACHINERY SALES REPRESENTATIVE RN FOR CONTINUITY OF CARE.
--- NOTE | 2019-04-05 19:29 | NUR ---
FOUND PT ON MECH VENT SETTINGS OF A/C: RR 14, TIDAL VOLUME 500, PEEP 5, FIO2 40%. PT NINOSKA SETTINGS WELL. ALARMS ON & AUDIBLE. AMBU BAG AT BEDSIDE OF PT. WILL CONT TO MONITOR PT
[2019-04-05] MEDS: MIRTAZAPINE 15 MG TAB PO SCH (21:21)
--- NOTE | 2019-04-05 22:00 | NUR ---
PT AT BED RESTING. EYES CLOSED. BREATHING REGULARLY. HOB AT 30 DEGREES, SIDE RAILS UP X2, CALL LIGHT WITHIN REACH.
--- NOTE | 2019-04-05 22:10 | NUR ---
DR. SOLIS AT BEDSIDE, UPDATED MD ON PT CONDITION. NO NEW ORDERS. WILL CONTINUE TO MONITOR
[2019-04-06] VITALS (103 sets, daily range): BP systolic 95–158; BP diastolic 53–93
--- NOTE | 2019-04-06 00:15 | NUR ---
PT AT BED RESTING. EYES CLOSED. BREATHING REGULARLY. HOB AT 30 DEGREES, SIDE RAILS UP X2, CALL LIGHT WITHIN REACH.
[2019-04-06] MEDS: fentaNYL 0.05 MG/ML VIAL IVP PRN ×2 (00:21→20:42)
[2019-04-06] MEDS: PROPOFOL 1000 MG/100 ML PREMIX 100 ML IV PRN ×5 (01:06→20:52)
[2019-04-06] MEDS: BLOOD GLUCOSE MONITORING 1 DEV DEV FS SCH ×8 (01:10→22:06)
--- NOTE | 2019-04-06 02:20 | NUR ---
MORNING CARE PROVIDED. PT TOLERATED WELL. HOB AT 30 DEGREES. SIDE RAILS UP X2, CALL LIGHT WITHIN REACH.
[2019-04-06] MEDS: MEROPENEM 500 MG in NACL 0.9% 50 ML IV SCH ×3 (04:26→20:40)
[2019-04-06] MEDS: DEXTROSE 10% 1,000 ML IV SCH ×2 (05:36→22:06)
[2019-04-06] MEDS: ALBUTEROL SULFATE/IPRATROPIU 3 ML SOL IH SCH ×3 (06:34→18:46)
--- NOTE | 2019-04-06 06:35 | NUR ---
RECEIVED PT ON CARESCAPE ON DOCUMENTED SETTINGS, ALARMS ARE ON AND AUDIBLE, PTS ETT IS SECURE 23 CM ANCHOR FAST IN PLACE, BS RHONCI IL SX SCANT YELLOW, HHN GIVEN I\L WITH 3 MG DUONEB, PT I NHF ASLEEP, BMV HOB, VENT PLUGGED INTO RED OUTLET
--- NOTE | 2019-04-06 07:26 | NUR ---
CHANGE OF SHIFT REPORT GIVEN TO AM NURSE FOR CONTINUITY OF CARE PT STABLE AT THIS TIME.
--- NOTE | 2019-04-06 07:30 | NUR ---
RECEIVED REPORT FROM CIRCULAR SAW EDGE FUSER RN. PT IS SEDATED, RASS -3. AFEBRILE, FLACC 0. NORMAL SINUS RHYTHM ON MONITOR. PT IS ETT TO VENT AC/VC FIO2 40% TV 500 RR 14 PEEP 5. BREATHING EVEN AND UNLABORED. LUNGS SOUND COARSE BILATERALLY. ABDOMEN SOFT, ROUND AND NON-TENDER W/ACTIVE BOWEL SOUNDS. NG TUBE IN PLACE, PLACEMENT CONFIRMED. PT RECEIVING GLUCERNA FEEDING AT 60 ML/HR, WATER FLUSH 30 ML Q6H. NO RESIDUALS NOTED. SATHYA PICC LINE ASYMPTOMATIC, PATENT, INTACT W/ GOOD BLOOD RETURNS, INFUSING D10 AT 60 ML/HR, PROPOFOL DRIP AT 45 MCG/KG/MIN (DRY WEIGHT 69 KG). LOUIS CATH IN PLACE DRAINING LIGHT YELLOW URINE TO GRAVITY. SCROTAL EDEMA NOTED. EDEMATOUS BOTH UPPER AND LOWER EXTREMITIES. SKIN IS DRY AND WARM TO TOUCH. HOB 30 DEGREES, BED IN LOWEST POSITION LOCKED, CALL LIGHT WITHIN REACH. WILL CONTINUE TO MONITOR. Addendum: 04/06/19 at 1122 by Anthony Mendes RN OGT IN PLACE, NOT NGT
[2019-04-06 07:37] LABS: BASOPHILS # (AUTO) 0.1 K/uL (0.00-0.22); BASOPHILS % (AUTO) 0.7 % (0.0-2.0); EOSINOPHILS % (AUTO) 8.7 % (0.0-4.0); HEMATOCRIT 20.9 % (36-52); LYMPHOCYTES # (AUTO) 1.5 K/uL (2.0-11.5); LYMPHOCYTES % (AUTO) 13.2 % (20.5-51.1); MEAN CORPUSCULAR HEMOGLOBIN 28 pg (27-31); MEAN CORPUSCULAR HGB CONC 33 g/dL (33-37); MEAN CORPUSCULAR VOLUME 82.3 fL (80-94); MONOCYTES # (AUTO) 0.1 K/uL (0.8-1.0); MONOCYTES % (AUTO) 1.2 % (1.7-9.3); NEUTROPHILS # (AUTO) 8.6 K/uL (1.8-7.7); NEUTROPHILS % (AUTO) 76.2 % (42.2-75.2); PLATELET COUNT (AUTO) 196 K/uL (140-450); RED BLOOD CELL COUNT(AUTO) 2.54 MIL/uL (4.20-6.10); RED CELL DISTRIBUTION WIDTH 14.4 % (11.6-13.7); WHITE BLOOD COUNT (AUTO) 11.2 K/uL (4.8-10.8)
[2019-04-06 08:10] LABS: ANION GAP 8.2 (8-16); CARBON DIOXIDE 29.8 mmol/L (21-32); CREATININE 0.7 mg/dL (0.7-1.3)
[2019-04-06 08:14] LABS: MAGNESIUM 1.9 mg/dL (1.8-2.4); PHOSPHORUS 1.9 mg/dL (2.5-4.9)
[2019-04-06] MEDS: AMYLASE/LIPASE/PROTEASE 1 CAPDR PO SCH ×3 (08:19→16:21)
[2019-04-06] MEDS: FERROUS SULFATE 300 MG/5 ML UDC PO SCH ×2 (08:19→16:21)
[2019-04-06] MEDS: MULTIVITAMIN 1 TAB PO SCH (08:20)
[2019-04-06] MEDS: LACTOBACILLUS RHAMNOSUS GG 1 EACH CAP PO SCH (08:20)
[2019-04-06] MEDS: THIAMINE 100 MG TAB PO SCH (08:20)
[2019-04-06] MEDS: ASCORBIC ACID 500 MG TAB PO SCH (08:20)
[2019-04-06] MEDS: METOPROLOL 25 MG TAB PO SCH ×2 (08:20→20:41)
[2019-04-06] MEDS: ATORVASTATIN 20 MG TAB PO SCH (08:20)
[2019-04-06] MEDS: NICOTINE TRANSD SYS 21 MG/24 HR PATCH TD SCH (08:21)
[2019-04-06] MEDS: FOLIC ACID 1 MG TAB PO SCH (08:21)
[2019-04-06] MEDS: FUROSEMIDE 20 MG/2 ML VIAL IVP SCH ×2 (08:21→16:21)
[2019-04-06] MEDS: FAMOTIDINE 20 MG/2 ML VIAL IV SCH (08:24)
--- NOTE | 2019-04-06 08:40 | NUR ---
MEDICATIONS ADMINISTERED ORDERED. PT TOLERATED WELL.
--- NOTE | 2019-04-06 09:00 | NUR ---
DR. RICHARDS MADE AWARE OF POTASSIUM LEVEL 3.0 AND PHOSPHORUS 1.9. WILL FOLLOW UP ON ORDERS.
[2019-04-06] MEDS: INSULIN LISPRO SLIDING SCALE 100 UNITS/ML VIAL SUBQ PRN ×5 (10:24→21:59)
[2019-04-06] MEDS ORDERED: POTASSIUM CHLORIDE 20% 40 MEQ/15 ML UDC GT SCH (10:30)
--- NOTE | 2019-04-06 11:14 | NUR ---
PATIENT'S FATHER, FLAKITA ACHARYA IS HERE, STATES HE WANTS TO BE ADDED TO THE CONTACT LIST FOR PATIENT AND WOULD LIKE TO SPEAK WITH TUBE WINDER HAND REGARDING PATIENT'S PLAN AFTER DISCHARGE. HE IS AWARE THAT OUR SOCIAL WORKERS AND SIZE ROLLER OPERATOR ARE NOT HERE ON WEEKENDS. HIS HOME PHONE NUMBER IS [phone], AND HIS WORK PHONE NUMBER IS [phone].
[2019-04-06] MEDS: SODIUM FERRIC GLUCONATE 125 MG in NACL 0.9% 100 ML IV SCH (11:16)
--- NOTE | 2019-04-06 11:55 | NUR ---
VAP ORAL CARE GIVEN. PT REPOSITIONED FOR COMFORT.
--- NOTE | 2019-04-06 13:24 | NUR ---
DR. DELCID IS HERE TO SEE PATIENT, UPDATED ON PATIENT'S CONDITION. WILL FOLLOW UP ON ANY ORDERS
--- NOTE | 2019-04-06 13:40 | NUR ---
DR. PEPPER UPDATED ON PT'S BLOOD PRESSURE 95/48. PER DR. PEPPER, START LEVOPHED DRIP IF SBP LOWER THAN 90. Addendum: 04/06/19 at 1459 by Anthony Mendes RN WRONG PATIENT
--- NOTE | 2019-04-06 14:30 | NUR ---
NO CHANGE IN CONDITION AT THIS TIME. PT'S VSS. GIRLFRIEND AT BEDSIDE. SAFETY PRECAUTIONS IN PLACE.
--- NOTE | 2019-04-06 15:25 | NUR ---
PT SEEN AND EXAMINED BY DR. SOLIS. UPDATES GIVEN ON PT'S CONDITION. WILL FOLLOW UP ON ORDERS.
--- NOTE | 2019-04-06 17:30 | NUR ---
PT HAD MODERATE AMOUNT OF LIQUID BOWEL MOVEMENT. CLEANED, REPOSITIONED AND OFF LOADED PRESSURE AREAS. VSS AT THIS TIME.
[2019-04-06] MEDS: DIPHENOXYLATE /ATROPINE 2.5 MG TAB PO PRN (18:02)
--- NOTE | 2019-04-06 18:23 | NUR ---
PT SEEN AND EXAMINED BY DR. SANDRA, UPDATES GIVEN ON PT'S CONDITION. WILL FOLLOW UP ON ORDERS.
--- NOTE | 2019-04-06 18:50 | NUR ---
FOUND PT ON & ASLEEP ON [facility] VENT SETTINGS OF A/C: RR 14, TIDAL VOLUME 500, PEEP 5, FIO2 40%. ALARMS ON & AUDIBLE. VENT CONNECTED TO RED PLUG OUTLET. AMBU BAG AT BEDSIDE. AIRWAY IS PATENT, E.T.TUBE SECURED & CLEAN. WILL CONT TO MONITOR
--- NOTE | 2019-04-06 19:16 | NUR ---
REPORT GIVEN TO LAB REP RN FOR CONTINUITY OF CARE. PT IS IN STABLE CONDITION.
--- NOTE | 2019-04-06 19:30 | NUR ---
RECEIVED REPORT FROM DAY SHIFT RN NO ACUTE DISTRESS NOTED.
--- NOTE | 2019-04-06 19:45 | NUR ---
PT HAS EYES CLOSED; AROUSABLE TO NAME, SEDATED RASS-3. MOVING PERIPHERAL EXTREMITIES, BILATERAL WRIST RESTRAINTS IN PLACE. ST 100S, PALPABLE PERIPHERAL PULSES, +2-3 SCROTAL EDEMA, +2 SACRAL EDEMA NOTED. 7.5MM ETT 22 CM @ GUMS. VENT 40% FIO2, TV 500 R 14, PEEP 5., COARSE, DIMINISHED BREATH SOUNDS. ABD SOFT NON DISTENDED. OGT IN PLACE, PATENT, FEEDING RUNNING. LOOSE STOOLS NOTED, DARK GREEN. LOUIS CATH IN PLACE, CLEAR YELLOW URINE NOTED SCATTERED BRUISING NOTED. BLANCHABLE REDNESS TO COCCYX AREA. R UPPER ARM DUAL LUMEN PICC NOTED. PROPOFOL @ 45 MCG/KG/MIN. D10 IVF RUNNING. BED LOCKED IN LOWEST POSITION. SIDE RAILS UP X3. HOB ELEVATED >30 DEGREES. FLACC 0 DRY WEIGHT: 69 KG
--- NOTE | 2019-04-06 20:00 | NUR ---
VAP ORAL CARE DONE. PT TURNED AND REPOSITIONED
[2019-04-06] MEDS: MIRTAZAPINE 15 MG TAB PO SCH (20:41)
[2019-04-06] MEDS: SODIUM PHOS / POTASSIUM PHOS 1 PKT PDR GT SCH (20:41)
--- NOTE | 2019-04-06 21:00 | NUR ---
DR DAVENPORT @ BEDSIDE. MD ORDERED CPAP WEANING TRIAL TOMORROW IN AM. WILL CONTINUE TO OBSERVE.
--- NOTE | 2019-04-06 22:00 | NUR ---
PT TURNED AND REPOSITIONED. BS CHECKED 165. NO S/S OF ACUTE DISTRESS NOTED.
[2019-04-07] VITALS (103 sets, daily range): BP systolic 86–155; BP diastolic 54–96
--- NOTE | 2019-04-07 01:00 | NUR ---
X1 BM NOTED, MAGDALENA CARE DONE. WILL CONTINUE TO MONITOR
[2019-04-07] MEDS: ONDANSETRON 4 MG/2 ML VIAL IM/IVP PRN (01:48)
[2019-04-07] MEDS: BLOOD GLUCOSE MONITORING 1 DEV DEV FS SCH ×8 (01:56→23:21)
[2019-04-07] MEDS: PROPOFOL 1000 MG/100 ML PREMIX 100 ML IV PRN ×5 (02:06→22:11)
[2019-04-07] MEDS: MEROPENEM 500 MG in NACL 0.9% 50 ML IV SCH ×4 (04:58→21:00)
--- NOTE | 2019-04-07 05:04 | NUR ---
AM CARE DONE, PT TURNED AND REPOSITIONED. NO ACUTE DISTRESS NOTED. WILL CONTINUE TO OBSERVE.
[2019-04-07] MEDS: fentaNYL 0.05 MG/ML VIAL IVP PRN (05:15)
[2019-04-07] MEDS: ALBUTEROL SULFATE/IPRATROPIU 3 ML SOL IH SCH ×3 (06:32→19:39)
--- NOTE | 2019-04-07 06:32 | NUR ---
rec'd pt on carescape vent settings ac14 vt 500 peep 5 fio2 40% alarms on and audible and ambu bag at side of vent and vent is plugged into red outlet, i\l tx given with duoneb 3ml with no adverse reaction post tx b\s are clear bilaterally, sxn pt small amt of cream color secretions, pt is orally intubated with 7.5 et tube secured with anchor fast at 23 cm at left corner of mouth and skin integrity is intact pt is sedated at this time no signs of distress noted
--- NOTE | 2019-04-07 07:21 | NUR ---
REPORT GIVEN TO DAY SHIFT FOR CONTINUITY OF CARE.
--- NOTE | 2019-04-07 07:30 | NUR ---
RECEIVED REPORT FROM PANEL MACHINE OPERATOR RN. PT IS SEDATED, RASS -3. AFEBRILE, FLACC 0. NORMAL SINUS RHYTHM ON MONITOR. PT IS ETT TO VENT AC/VC FIO2 40% TV 500 RR 14 PEEP 5. BREATHING EVEN AND UNLABORED. LUNGS SOUND COARSE BILATERALLY. ABDOMEN SOFT, ROUND AND NON-TENDER W/ACTIVE BOWEL SOUNDS. OG TUBE IN PLACE, PLACEMENT CONFIRMED. TUBE FEEDING HELD DUE TO VOMITING X1, PER NIGHT NURSE. SATHYA PICC LINE ASYMPTOMATIC, PATENT, INTACT W/ GOOD BLOOD RETURNS, INFUSING D10 AT 60 ML/HR, PROPOFOL DRIP AT 45 MCG/KG/MIN (DRY WEIGHT 69 KG). LOUIS CATH IN PLACE DRAINING LIGHT YELLOW URINE TO GRAVITY. SCROTAL EDEMA NOTED. EDEMATOUS BOTH UPPER AND LOWER EXTREMITIES. SKIN IS DRY AND WARM TO TOUCH. HOB 30 DEGREES, BED IN LOWEST POSITION LOCKED, CALL LIGHT WITHIN REACH. WILL CONTINUE TO MONITOR.
[2019-04-07 07:43] LABS: BASOPHILS # (AUTO) 0.1 K/uL (0.00-0.22); BASOPHILS % (AUTO) 0.7 % (0.0-2.0); EOSINOPHILS # (AUTO) 0.9 K/uL (0-0.4); EOSINOPHILS % (AUTO) 6.8 % (0.0-4.0); LYMPHOCYTES # (AUTO) 1.8 K/uL (2.0-11.5); LYMPHOCYTES % (AUTO) 13.7 % (20.5-51.1); MEAN CORPUSCULAR HEMOGLOBIN 27 pg (27-31); MEAN CORPUSCULAR HGB CONC 33 g/dL (33-37); MEAN CORPUSCULAR VOLUME 82.8 fL (80-94); MONOCYTES # (AUTO) 0.2 K/uL (0.8-1.0); MONOCYTES % (AUTO) 1.3 % (1.7-9.3); NEUTROPHILS # (AUTO) 10.2 K/uL (1.8-7.7); NEUTROPHILS % (AUTO) 77.5 % (42.2-75.2); PLATELET COUNT (AUTO) 188 K/uL (140-450); RED BLOOD CELL COUNT(AUTO) 2.28 MIL/uL (4.20-6.10); RED CELL DISTRIBUTION WIDTH 14.7 % (11.6-13.7); WHITE BLOOD COUNT (AUTO) 13.2 K/uL (4.8-10.8)
[2019-04-07 07:49] LABS: CARBON DIOXIDE 31.7 mmol/L (21-32); CREATININE 0.7 mg/dL (0.7-1.3); POTASSIUM 3.7 mmol/L (3.5-5.1)
--- NOTE | 2019-04-07 07:51 | NUR ---
DR. ORANTES AND RESIDENT GROUP AT BEDSIDE, MADE AWARE THAT TUBE FEEDING HAS BEEN HELD BY PEOPLESOFT ADMINISTRATOR RN DUE TO VOMITING X1. PER DR. ORANTES, RESTART TF AT 15 ML/HR, INCREASE 15 ML Q4H TO REACH THE GOAL OF 60 ML/HR. TF RESTARTED ORDERED. WILL FOLLOW UP WITH ANY NEW ORDERS.
[2019-04-07 07:59] LABS: MAGNESIUM 1.8 mg/dL (1.8-2.4); PHOSPHORUS 1.9 mg/dL (2.5-4.9)
[2019-04-07 08:05] LABS: HEMATOCRIT 18.9 % (36-52); HEMOGLOBIN 6.2 g/dL (12.0-18.0)
[2019-04-07] MEDS: ATORVASTATIN 20 MG TAB PO SCH (08:15)
[2019-04-07] MEDS: NICOTINE TRANSD SYS 21 MG/24 HR PATCH TD SCH (08:15)
[2019-04-07] MEDS: LACTOBACILLUS RHAMNOSUS GG 1 EACH CAP PO SCH (08:15)
[2019-04-07] MEDS: SODIUM PHOS / POTASSIUM PHOS 1 PKT PDR GT SCH ×2 (08:15→20:58)
[2019-04-07] MEDS: AMYLASE/LIPASE/PROTEASE 1 CAPDR PO SCH ×3 (08:15→17:06)
[2019-04-07] MEDS: METOPROLOL 25 MG TAB PO SCH ×2 (08:16→20:59)
[2019-04-07] MEDS: FUROSEMIDE 20 MG/2 ML VIAL IVP SCH ×2 (08:16→17:06)
[2019-04-07] MEDS: ASCORBIC ACID 500 MG TAB PO SCH (08:16)
[2019-04-07] MEDS: FOLIC ACID 1 MG TAB PO SCH (08:16)
[2019-04-07] MEDS: FERROUS SULFATE 300 MG/5 ML UDC PO SCH ×2 (08:16→17:06)
[2019-04-07] MEDS: MULTIVITAMIN 1 TAB PO SCH (08:16)
[2019-04-07] MEDS: THIAMINE 100 MG TAB PO SCH (08:17)
[2019-04-07] MEDS: FAMOTIDINE 20 MG/2 ML VIAL IV SCH (08:18)
--- NOTE | 2019-04-07 08:25 | NUR ---
SEDATION TURNED OFF
--- NOTE | 2019-04-07 08:35 | NUR ---
MEDICATIONS ADMINISTERED ORDERED. PT TOLERATED WELL.
--- NOTE | 2019-04-07 08:35 | NUR ---
PT PLACED ON SBT MODE OF CPAP 5 PS 10
--- NOTE | 2019-04-07 09:31 | NUR ---
PT FAILED WEANING AT THIS TIME Addendum: 04/07/19 at 0951 by Katherine Ahmadi RT PT WAS APNEIC AND VENT BACK TO AC MODE
--- NOTE | 2019-04-07 11:10 | NUR ---
PT SEEN AND EXAMINED BY DR. DAVENPORT. WILL FOLLOW UP ON ORDERS.
[2019-04-07] MEDS: NACL 0.9% 1,000 ML IV SCH (11:17)
[2019-04-07] MEDS: SODIUM FERRIC GLUCONATE 125 MG in NACL 0.9% 100 ML IV SCH (11:20)
[2019-04-07] MEDS ORDERED: ACETAMINOPHEN 325 MG TAB PO SCH ×2 (12:00→16:00)
[2019-04-07] MEDS: INSULIN LISPRO SLIDING SCALE 100 UNITS/ML VIAL SUBQ PRN ×3 (13:53→19:20)
--- NOTE | 2019-04-07 14:05 | NUR ---
PT SEEN AND EXAMINED BY DR. SOLIS, UPDATES GIVEN ON PT'S CONDITION. WILL FOLLOW UP WITH NEW ORDERS.
--- NOTE | 2019-04-07 14:47 | NUR ---
04/07/19 RD FOLLOW UP COMPLETED PLEASE REFER TO NUTRITION PROGRESS NOTE UNDER CARE ACTIVITY FOR ESTIMATED NUTRITION NEEDS. RD RECOMMENDATIONS: 1. PER MD RECOMMENDATIONS: RESTART TF AT 15ML/HR, INCREASE 15ML Q 4HR TO GOAL 60MLHR. 2.RECOMMEND CONTINUE WITH REGLAN. 3. RD WILL F/U 2-3 DAYS; HIGH RISK. RAINER MARTINEZ, RD
--- NOTE | 2019-04-07 15:30 | NUR ---
BLOOD TRANSFUSION STARTED. VSS. AFEBRILE. WILL MONITOR FOR S/SX OF ADVERSE REACTIONS.
--- NOTE | 2019-04-07 17:30 | NUR ---
BLOOD TRANSFUSION COMPLETED. NO S/SX OF ADVERSE REACTIONS NOTED. VSS, AFEBRILE. WILL CONTINUE TO MONITOR.
--- NOTE | 2019-04-07 17:47 | NUR ---
MODERATE AMOUNT OF SOFT BOWEL MOVEMENT NOTED. CLEANED AND REPOSITIONED. PT TOLERATED WELL. SAFETY MEASURES ENSURED. WILL CONTINUE TO MONITOR.
--- NOTE | 2019-04-07 18:42 | NUR ---
DR. SADNRA IN TO SEE AND EXAMINE PT. UPDATES GIVEN ON PT'S CONDITION.
[2019-04-07 19:15] LABS: BASOPHILS # (AUTO) 0.1 K/uL (0.00-0.22); EOSINOPHILS # (AUTO) 0.8 K/uL (0-0.4); EOSINOPHILS % (AUTO) 5.5 % (0.0-4.0); HEMATOCRIT 22.9 % (36-52); HEMOGLOBIN 7.6 g/dL (12.0-18.0); LYMPHOCYTES # (AUTO) 2.9 K/uL (2.0-11.5); LYMPHOCYTES % (AUTO) 19.5 % (20.5-51.1); MEAN CORPUSCULAR HEMOGLOBIN 28 pg (27-31); MEAN CORPUSCULAR HGB CONC 33 g/dL (33-37); MEAN CORPUSCULAR VOLUME 84.3 fL (80-94); MONOCYTES # (AUTO) 0.2 K/uL (0.8-1.0); MONOCYTES % (AUTO) 1.4 % (1.7-9.3); NEUTROPHILS # (AUTO) 10.8 K/uL (1.8-7.7); NEUTROPHILS % (AUTO) 72.6 % (42.2-75.2); PLATELET COUNT (AUTO) 224 K/uL (140-450); RED BLOOD CELL COUNT(AUTO) 2.72 MIL/uL (4.20-6.10); WHITE BLOOD COUNT (AUTO) 14.9 K/uL (4.8-10.8)
--- NOTE | 2019-04-07 19:25 | NUR ---
REPORT GIVEN TO NIGHT NURSE FOR CONTINUITY OF CARE. NO SIGNS OF DISTRESS NOTED AT THIS TIME.
--- NOTE | 2019-04-07 19:40 | NUR ---
RECEIVED ON C[employer]App[employer]APE R860 VENTILATOR PLUGGED INTO RED OUTLET TOLERATING WELL WITHOUT ADVERSE REACTIONS NOTED TO AN ENDOTRACHEAL TUBE #7.5 SECURED AT 23cm WITH AN ANCHOR FAST CUFF PRESSURE CHECKED NOTED AMBU BAG NOTED AT BEDSIDE SEDATED RESTING COMFORTABLY WITHOUT EVIDENCE OF PULMONARY DISTRESS NOTED EQUAL CHEST RISE AIRWAY PATENT SATURATION 100% ON FIO2 OF 40% POST HHN THERAPY TITRATED FIO2 TO 35% LEANNE/RN NOTIFIED
--- NOTE | 2019-04-07 19:52 | NUR ---
RT YEIMY AT BEDSIDE, REDUCED FIO2=35%.
--- NOTE | 2019-04-07 19:58 | NUR ---
RECEIVED BEDSIDE REPOT FROM MORNING SHIFT RN, SKYE, FOR CONTINUITY OF CARE. VSS BP 155/90, HR 78, SATING 100%, RR=16. AFEBRILE, TEMP 97.8. SR ON ABSORPTION PLANT OPERATOR HELPER. ETT TO VENT, FIO2=35, YD=627, FLOW=45, KS=637, RR=14. LUNG SOUND CLEAR ON UPPER LOWER BILATERAL LOBES. NPO EXCEPT MEDS, BOWEL SOUND ACTIVE, ABDOMEN IS SOFT/FLAT, OGT TO FEED AT 45CC/HR GLUCERNA 1.2. LOUIS IN PLACE. SKIN IS INTACT, SCROTAL EMEDA WITH 1+PITTING EDEMA ON BILATERAL HANDS. SATHYA PICC LINE, WITH NS AT 60CC/HR AN PROPOFOL DRIP AT 45MCG/MIN. PT IS ON BILATERAL WRIST RESTRAINTS. HOB ELEVATED, FALL, ASPIRATION, STANDARD PRECAUTIONS MAINTAINED. DRY WEIGHT OF 69 KG FOR PROPOFOL TITRATION.
--- NOTE | 2019-04-07 20:10 | NUR ---
PT FAMILY AT BEDSIDE, UPDATED ON CONDITION. STATED OK TO GIVE PT FATHER INFORMATION REGARDING PATIENT STATUS/CONDITION.
[2019-04-07] MEDS: METOCLOPRAMIDE 10 MG/2 ML INJ VIAL IVP SCH (20:58)
[2019-04-07] MEDS: MIRTAZAPINE 15 MG TAB PO SCH (20:59)
--- NOTE | 2019-04-07 22:01 | NUR ---
SEDATED NO DISTRESS NOTED DEEP TRACHEAL SUCTION FOR MODERATE THICK PALE YELLOW SECRETIONS AIRWAY PATENT Addendum: 04/07/19 at 2211 by Terrence Negro RT SATURATION 100% ON FIO2 OF 35% TITRATED FIO2 TO 30% HUNTER NOTIFIED
--- NOTE | 2019-04-07 22:30 | NUR ---
LARGE BOWEL MOVEMENT, LOOSE WATER LIKE STOOL AND FORMED SOLID PIECES. YELLOW/BROWN IN COLOR. PT TOLERATED WELL. HYDRAGUARD APPLIED TO SCROTUM AND SACRALCOCCYX AREA. FRESH LINENS PROVIDED AT THIS TIME.
--- NOTE | 2019-04-07 23:38 | NUR ---
NO APPARENT DISTRESS NOTED EQUAL CHEST RISE GOOD AERATION THROUGHOUT BILATERAL LUNG DOWD AIRWAY PATENT
[2019-04-08] VITALS (102 sets, daily range): BP systolic 93–165; BP diastolic 60–103
[2019-04-08] MEDS: BLOOD GLUCOSE MONITORING 1 DEV DEV FS SCH ×8 (01:19→22:42)
--- NOTE | 2019-04-08 01:58 | NUR ---
SEDATED NO DISTRESS NOTED DEEP TRACHEAL SUCTION FOR SMALL THIN YELLOW SECRETIONS AIRWAY PATENT
[2019-04-08] MEDS: NACL 0.9% 1,000 ML IV SCH ×2 (03:41→20:34)
--- NOTE | 2019-04-08 03:42 | NUR ---
FIO2 REMAINS AT 40%, PT TOLERATED WELL, RASS -3 MAINTAINED. HOB ABOVE 30 DEG. VAP ORAL CARE PROVIDED PT REPOSITIONED, NO RESIDUAL. TUBE FEEDING AT 60CC/HR. SCDS ON BILATERAL LEGS. NO SIGNS OF DISTRESSED BREATHING.
--- NOTE | 2019-04-08 03:55 | NUR ---
RESTING WELL NO DISTRESS NOTED GOOD CHEST RISE AIRWAY PATENT
[2019-04-08] MEDS: MEROPENEM 500 MG in NACL 0.9% 50 ML IV SCH ×3 (05:31→20:45)
--- NOTE | 2019-04-08 05:36 | NUR ---
PT HAD LARGE LOOSE YELL/BROW, WATERLY LIKE BOWEL MOVEMENT. FRESH PAD AND HYDRAGUARD APPLIED. PT=243, NO INSUING COVERAGE GIVEN. TOTAL URNE OUTPUT OF 750ML QSHIFT. PT SIGNIFICANT OTHER AT BEDSIDE TO SEE PATIENT.
--- NOTE | 2019-04-08 05:41 | NUR ---
NO DISTRESS NOTED GOOD CHEST RISE ENDOTRACHEAL SUCTION FOR SMALL THIN YELLOW SECRETIONS AIRWAY PATENT
[2019-04-08 06:03] LABS: ANION GAP 3.9 (8-16); CARBON DIOXIDE 33.1 mmol/L (21-32); CREATININE 0.6 mg/dL (0.7-1.3)
[2019-04-08 06:08] LABS: MAGNESIUM 1.8 mg/dL (1.8-2.4); PHOSPHORUS 2.6 mg/dL (2.5-4.9)
[2019-04-08 06:42] LABS: BASOPHILS # (AUTO) 0.1 K/uL (0.00-0.22); BASOPHILS % (AUTO) 0.9 % (0.0-2.0); EOSINOPHILS # (AUTO) 0.8 K/uL (0-0.4); EOSINOPHILS % (AUTO) 5.9 % (0.0-4.0); HEMATOCRIT 25.8 % (36-52); HEMOGLOBIN 8.5 g/dL (12.0-18.0); LYMPHOCYTES # (AUTO) 2.2 K/uL (2.0-11.5); LYMPHOCYTES % (AUTO) 16.8 % (20.5-51.1); MEAN CORPUSCULAR HEMOGLOBIN 28 pg (27-31); MEAN CORPUSCULAR HGB CONC 33 g/dL (33-37); MEAN CORPUSCULAR VOLUME 84.9 fL (80-94); MONOCYTES # (AUTO) 0.2 K/uL (0.8-1.0); MONOCYTES % (AUTO) 1.8 % (1.7-9.3); NEUTROPHILS # (AUTO) 9.7 K/uL (1.8-7.7); NEUTROPHILS % (AUTO) 74.6 % (42.2-75.2); PLATELET COUNT (AUTO) 216 K/uL (140-450); RED BLOOD CELL COUNT(AUTO) 3.04 MIL/uL (4.20-6.10); RED CELL DISTRIBUTION WIDTH 14.8 % (11.6-13.7)
[2019-04-08] MEDS: ALBUTEROL SULFATE/IPRATROPIU 3 ML SOL IH SCH ×3 (06:43→19:42)
--- NOTE | 2019-04-08 06:43 | NUR ---
RECEIVED PT ON CARESCAPE ON DOCUMENTED SETTINGS, ALARMS ARE ON AND AUDIBLE, PTS ETT IS SECURE [address] FAST IN PL[address], BS CLEAR PT IN HF ASLEEP, HHN GIVEN I\L WITH 3 MG DUONEB, BMV HOB VENT PLUGGED INTO RED OUTLET
--- NOTE | 2019-04-08 07:30 | NUR ---
RECEIVED REPORT FROM RESTAURANT AREA MANAGER RN AT BEDSIDE. PT IS AFEBRILE, FLACC 0. SEDATED WITH PROPOFOL DRIP (DRY WEIGHT 69 KG), RASS -3. NORMAL SINUS RHYTHM ON MONITOR, S1 S2 HEARD. ETT TO VENT W/ SETTINGS: AC/VC FIO2 30%, TV 500, RR 14, PEEP 5. LUNGS SOUND CLEAR BILATERALLY. BREATHING EVEN AND UNLABORED. ABDOMEN SOFT AND NON-TENDER W/ACTIVE BOWEL SOUNDS. OG TUBE IN PLACE, PLACEMENT CONFIRMED. PT IS RECEIVING TF GLUCERNA AT 60 ML/HR, NO RESIDUALS NOTED. PICC LINE TO SATHYA ASYMPTOMATIC, PATENT, INTACT, INFUSING NS AT 60 ML/HR, PROPOFOL DRIP AT 45 MCG/KG/MIN . LOUIS CATH IN PLACE DRAINING LIGHT YELLOW URINE TO GRAVITY DRAINAGE BAG. SCROTAL AND BUE EDEMA NOTED. SKIN IS DRY AND WARM TO TOUCH. HOB AT 30 DEGREES, BED IN LOWEST POSITION, CALL LIGHT WITHIN REACH. WILL CONTINUE TO MONITOR.
--- NOTE | 2019-04-08 07:45 | NUR ---
PLACED PT ON HERNANDEZ V60 ON DOCUMENTED SETTINGS, ALARMS ARE ON AND AUDIBLE, PT IN HF IN DISTRESS, WEARING F\F MASK SIZE LG GEL UNDER MASK PT IN HF IRRITABLE, BS EXP WHEEZING HHN TO FOLLOW, NATALIE PLUGGED INTO RED OUTLET Addendum: 04/08/19 at 0959 by Kailey Shannon RT WRONG PT.
[2019-04-08] MEDS: FUROSEMIDE 20 MG/2 ML VIAL IVP SCH ×2 (08:17→17:11)
[2019-04-08] MEDS: FERROUS SULFATE 300 MG/5 ML UDC PO SCH ×2 (08:17→17:11)
[2019-04-08] MEDS: LACTOBACILLUS RHAMNOSUS GG 1 EACH CAP PO SCH (08:18)
[2019-04-08] MEDS: METOCLOPRAMIDE 10 MG/2 ML INJ VIAL IVP SCH ×2 (08:18→20:44)
[2019-04-08] MEDS: DIPHENOXYLATE /ATROPINE 2.5 MG TAB PO PRN (08:18)
[2019-04-08] MEDS: METOPROLOL 25 MG TAB PO SCH ×2 (08:19→21:00)
[2019-04-08] MEDS: SODIUM PHOS / POTASSIUM PHOS 1 PKT PDR GT SCH ×2 (08:19→20:44)
[2019-04-08] MEDS: AMYLASE/LIPASE/PROTEASE 1 CAPDR PO SCH ×3 (08:19→17:11)
[2019-04-08] MEDS: NICOTINE TRANSD SYS 21 MG/24 HR PATCH TD SCH (08:19)
[2019-04-08] MEDS: FAMOTIDINE 20 MG/2 ML VIAL IV SCH (08:19)
[2019-04-08] MEDS: THIAMINE 100 MG TAB PO SCH (08:20)
[2019-04-08] MEDS: FOLIC ACID 1 MG TAB PO SCH (08:20)
[2019-04-08] MEDS: MULTIVITAMIN 1 TAB PO SCH (08:20)
[2019-04-08] MEDS: ASCORBIC ACID 500 MG TAB PO SCH (08:20)
[2019-04-08] MEDS: ATORVASTATIN 20 MG TAB PO SCH (08:20)
--- NOTE | 2019-04-08 08:30 | NUR ---
MEDICATIONS ADMINISTERED ORDERED. PT TOLERATED WELL.
--- NOTE | 2019-04-08 08:45 | NUR ---
PROPOFOL HELD FOR SEDATION VACATION AND CPAP WEANING TRIALS.
--- NOTE | 2019-04-08 08:50 | NUR ---
PT AWAKE, ALERT AND ORIENTED X4 DURING SEDATION VACATION. GIRLFRIEND AND CHARGE NURSE ALSO AT BEDSIDE. PT ABLE TO MAKE NEEDS KNOWN BY WRITING. ASKED PT WHO CAN SIGN AND GIVE CONSENT WHILE BEING SEDATED. PER PT, HE WILL SIGN CONSENTS BY HIMSELF DURING SEDATION VACATIONS, HE DOES NOT WANT ANYBODY TO SIGN FOR HIM AT THIS TIME. CHARGE NURSE AWARE.
--- NOTE | 2019-04-08 08:52 | NUR ---
PT IS AWAKE, GAVE PERMISSION TO GIRLFRIEND TO TAKE HIS BELONGINGS HOME AND TO ONLY LEAVE CELL PHONE, COUNTER STACKER AND GLASSES IN THE HOSPITAL.
--- NOTE | 2019-04-08 08:55 | NUR ---
PLACED PT ON SBT CPAP 5 PS 10 FIO2 30 MACHINE PLACED PT BACK TO A/C WITH PREVIOUS SETTINGS,AT 0930
[2019-04-08] MEDS: PROPOFOL 1000 MG/100 ML PREMIX 100 ML IV PRN ×3 (09:38→19:52)
--- NOTE | 2019-04-08 11:20 | NUR ---
DR. JUAREZ IN TO SEE AND EXAMINE PT, SPOKE WITH GIRLFRIEND AT BEDSIDE. WILL FOLLOW UP ON ORDERS.
--- NOTE | 2019-04-08 11:45 | NUR ---
DR. TAVERAS IN THE UNIT, SPEAKING WITH PT'S FATHER ON PHONE.
--- NOTE | 2019-04-08 12:30 | NUR ---
WOUND CARE EVALUATION NOTE: REASON FOR EVALUATION: SACRALCOCCYX AND BUTTOCKS WOUND PER CN AND PRIMARY RN REPORT OF CHANGE OF SKIN CONDITION, SKIN ASSESSMENT DONE WITH THIS 44 Y/O MALE PT ADMITTED TO [facility] WITH INITIAL DX FATIGUE AND WEAKNESS. PAST MEDICAL HX INCLUDES HTN, DM, AND CHRONIC DIARRHEA. PER GIRLFRIEND HE HAS SKIN BREAKS ON AND OFF.ALL ABOVE INFORMATION OBTAINED FROM ADMISSION H&P. PT IS SEDATED. SKIN IS WARM AND DRY, BLE HAIR GROWTH, NO EDEMA. DORSAL PEDAL PULSES PRESENT AND NORMAL. MULTIPLE SCABS ALL OVER HIS BODY WITH LARGEST TO LEFT ELBOW, PER CN, PT. HAVING FREQUENCY OF LBM DUE TO MEDICATION FROM PAST FEW DAYS NOTICE OF CHANGE OF SKIN CONDITION THIS MORNING. PT. INCONTINENT OF BOWEL X1 DURING ASSESSMENT. F/C PATENT WITH MODERATE AMOUNT YELLOW COLOR URINE OUT PUT OBSERVED. PLAN OF CARE DISCUSSED WITH PRIMARY RN. AND DR. TAVERAS. CN UPDATE SKIN CONDITION TO PT.�S FATHER VIA PHONE. 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 INTEGUMENTARY: -UPPER AND LOWER EXTREMITIES WITH MULTIPLE SCABS WITH LARGEST TO LEFT ELBOW 4X3 CM -INCONTINENT ASSOCIATE DERMATITIS (IAD) TO: B/L GROINS EXTENDED TO ANTERIOR/POSTERIOR SCROTAL AREA, MAGDALENA-ANAL SKIN REDNESS, INTACT -PRESSURE ULCER INJURY STAGE 2, SACROCOCCYX, 1X1X0.1CM, MAGDALENA-WOUND SKIN MOIST, SURROUNDING REDNESS 2X2CM INDICATED FURTHER DAMAGE RECOMMENDATIONS: -RECTAL BAG/ RECTAL TUBING FOR MOISTURE CONTROL -FREQUENT MAGDALENA-CARE, AVOIDING FRICTION. KEEP DRY AND CLEAN AT ALL TIMES -APPLY HYDRAGUARD TO R/L GROINS EXTENDED TO SCROTAL AND MAGDALENA-ANAL REDNESS BID AND PRN IF SOILING -CLEANSE SACRALCOCCYX WITH WOUND CLEANSING SOLUTION AND PAT DRY, APPLY Z-GUARD BIDWC AND PRN IF SOILING -APPLY HEEL PROTECTORS TO BOTH HEELS AT ALL TIMES -OFFLOAD BILATERAL HEELS BY PLACING PILLOWS UNDER CALVES UNLESS OTHERWISE CONTRAINDICATED -PRESSURE REDISTRIBUTION SURFACE THERAPY -TURN AND REPOSITION Q2H, OFFLOAD SACRALCOCCYX AND BUTTOCKS BY TURNING RIGHT AND LEFT -CONTINUE TO FOLLOW RD RECOMMENDATIONS ALL ABOVE RECOMMENDATIONS DISCUSSED WITH PRIMARY RN. WILL FOLLOW UP PT Q7-10 DAYS. PLEASE CONTACT WOUND CARE NURSE FOR ANY QUESTION AND CHANGE OF WOUND CONDITION.
[2019-04-08] MEDS: INSULIN LISPRO SLIDING SCALE 100 UNITS/ML VIAL SUBQ PRN ×2 (13:12→20:32)
--- NOTE | 2019-04-08 14:20 | NUR ---
PT SEEN BY DR. MAYES. NO NEW ORDER RECEIVED.
--- NOTE | 2019-04-08 16:05 | NUR ---
VAP ORAL CARE GIVEN, TURNED AND REPOSITIONED. PT TOLERATED WELL. MODERATE AMOUNT OF LIQUID MIXED WITH SOFT BOWEL MOVEMENT NOTED IN RECTAL BAG.
--- NOTE | 2019-04-08 19:15 | NUR ---
RECEIVED BEDSIDE REPORT FROM MORNING SHIFT RNSKYE. PT IS NONVERBAL, ABLE TO NOD TO COMMANDS. LUNG SOUND CLEAR ON UPPER/LOWER BILATER LOBES, NO CRACKLES OR SIGNS OF LABORED BREATHING. ON ETT TO VENT, AT FIO2=30, FLOW 40L/MIN, VT 500, RATE 14. SR ON NAIL MAKING MACHINE TENDER, BP 120/80, HR 86, SATING 100%, RR=16. ON GLUCERAN 1.2, ABDOMEN IS FLAT/SOFT. ON GLUCERNA 1.2 AT 60CC/HR, NO RESIDUAL NOTED. AUSCULTATED FOR PROPER PLACEMENT. PT HAS RECTAL BAG, STOOL IS BROWN/YELLOW IN COLOR/SCANT. LOUIS CATH IN PLACE, URINE IS YELLOW/CLOUDY. SKIN IS NON INTACT, WITH OPEN PRESSURE WOUND ON SACRALCOCCYX AREA, ZGUARD APPLIED AND PT REPOSITIONED WITH PILLOW SUPPORT. SCROTAL EDEMA, AND SKIN IS NORMAL IN COLOR/DRY/ROUGHT TO TOUCH. PT HAS SATHYA PICC LINE, INFUSING PROPOFOL AT 45MCG/MIN AND NS AT 60CC/HR. STANDARD, FALL, ASPIRATION PRECAUTIONS MAINTAINED. DRY WEIGHT OF 69KG USED FOR PROPOFOL DRIP.
--- NOTE | 2019-04-08 19:20 | NUR ---
DR. DAVENPORT AT BEDSIDE TO SEE PATIENT, UPDATED DRMaksim ON PT CONDITION WITH MORNING SHIFT RN, SKYE.
--- NOTE | 2019-04-08 19:24 | NUR ---
REPORT GIVEN TO PROCUREMENT PROFESSIONAL LOGISTICS RN FOR CONTINUITY OF CARE. NO SIGNS OF DISTRESS NOTED AT THIS TIME.
--- NOTE | 2019-04-08 19:33 | NUR ---
RECEIVED PATIENT ON CURRENT SETTINGS: AC/VC 500 RATE 14 PEEP 5 FIO2 30%. PATIENT IS INTUBATED WITH A SIZE 7.5CM ET TUBE THAT IS SECURE WITH AN ANCHOR FAST AT 23CM AT THE LIP. ET TUBE IS CURRENTLY AT MIDLINE AND OBSERVED NO REDNESS OR SKIN BREAKDOWN. B/S: RHONCHI IN THE RIGHT AND LEFT UPPER LOBES AND DIMINISHED IN THE BASES. PT IS QUIET AND WILL OPEN EYES IF AROUSED. SUCTIONED PATIENT AND RECEIVED SMALL, WHITE, THIN SECRETIONS. PATIENT HAS A GOOD GAG REFLEX. TREATMENT GIVEN INLINE WITH NO INCIDENT. VENT AND ALARM SETTINGS VERIFIED. AMBU BAG AT BEDSIDE.
[2019-04-08] MEDS: MIRTAZAPINE 15 MG TAB PO SCH (20:44)
--- NOTE | 2019-04-08 21:30 | NUR ---
DR. SOLIS IN TO SEE PATIENT, UPDATED ON PT CONDITION. PT BG 95/63, LOPRESSOR HELD AT THIS TIME. PT SIGNIFICANT OTHER AT BEDSIDE. RASS -3 MAITAINED, PT AT TIME AROUSABLE TO NAME, MOSTLY AROUSABLE TO PHYSICAL TOUCH/STIMULATION.
--- NOTE | 2019-04-08 22:43 | NUR ---
CALLED DR. VELOZ, STATED THAT OK NOT TO GIVE COVERAGE FOR CURRENT BG LHHBG=[id number]. 2 UNITS OF COVERAGE WAS GIVEN FOLLOWING PREVIOUS BG CHECK. TO UPDATE ORDERS REGARDING BLOOD GLUCOSE MONITORING.
--- NOTE | 2019-04-08 23:06 | NUR ---
ROUTINE VENT CHECK AND PATIENT ASSESSMENT. CHANGED HME. B/S: RHONCHI IN THE RIGHT AND LEFT UPPER LOBES AND DIMINISHED IN THE BASES. SUCTIONED PATIENT AND RECEIVED SCANT, WHITE, THIN SECRETIONS. AIRWAY IS PATENT. NO CHANGES TO VENT SETTINGS.
[2019-04-09] VITALS (108 sets, daily range): BP systolic 95–162; BP diastolic 51–98
[2019-04-09] MEDS: HYDRAGUARD CREAM TP SCH ×2 (00:32→12:41)
[2019-04-09] MEDS: Z-GUARD PASTE TP SCH ×2 (00:32→12:41)
--- NOTE | 2019-04-09 00:44 | NUR ---
PT REPOSITIONED, VAP ORAL CARE PROVIDED, RECAL BAG REMAINS INTACT. TEMP OF 97.8, REPOSITIONED AND LEGS ELEVATED.
[2019-04-09] MEDS: PROPOFOL 1000 MG/100 ML PREMIX 100 ML IV PRN ×2 (01:13→11:39)
--- NOTE | 2019-04-09 03:25 | NUR ---
AM CARES PROVIDED, VAP KIT, AND LOUIS CATH CARE PROVIDED. RECTAL BAG IN PLACE, PT HAS LOOSE WATERY LIKE STOOL DRAINING INTO RECTAL BAG, ABOUT 200ML COLLECTED SINCE START OF SHIFT. PT AROUSES TO TOUCH AND NAME. PT TOLERATED CARES WELL, FLACC 0. PT REACTS TO PAIN AT SCROTAL AREA AND SACRAL COCCYX PRESSURE / INCONTINENT DERMATITIS. ZGUARD APPLIED. HOB ABOVE 30 DEG.
[2019-04-09] MEDS: MEROPENEM 500 MG in NACL 0.9% 50 ML IV SCH ×3 (04:28→20:50)
--- NOTE | 2019-04-09 04:41 | NUR ---
LAURA FROM LAB AT BEDSIDE TO COLLECT BLOOD SAMPLE, BLOOD DRAW COMPLETED BY RN VIA SATHYA PICC LINE.
--- NOTE | 2019-04-09 05:01 | NUR ---
ROUTINE VENT CHECK AND PATIENT ASSESSMENT. MOVED ET TUBE FROM ORAL MIDLINE TO ORAL RIGHT WITH NO INCIDENT. AIRWAY IS PATENT. NO CHANGES TO VENT SETTINGS.
[2019-04-09] MEDS: BLOOD GLUCOSE MONITORING 1 DEV DEV FS SCH ×3 (05:26→18:36)
[2019-04-09] MEDS: INSULIN LISPRO SLIDING SCALE 100 UNITS/ML VIAL SUBQ PRN ×3 (05:42→18:37)
--- NOTE | 2019-04-09 05:56 | NUR ---
RECTAL BAG DRAINAGE MEASURED 325ML, AND URINE OUTPUT VIA LOUIS OF 900ML QSHIFT. BG CHECK OF 164, 2 UNITS INSULIN COVERAGE GIVEN.
[2019-04-09 06:11] LABS: MAGNESIUM 1.8 mg/dL (1.8-2.4); PHOSPHORUS 2.8 mg/dL (2.5-4.9)
[2019-04-09 06:15] LABS: CREATININE 0.6 mg/dL (0.7-1.3)
[2019-04-09 06:17] LABS: BASOPHILS # (AUTO) 0.1 K/uL (0.00-0.22); BASOPHILS % (AUTO) 0.9 % (0.0-2.0); EOSINOPHILS # (AUTO) 0.6 K/uL (0-0.4); EOSINOPHILS % (AUTO) 4.8 % (0.0-4.0); HEMATOCRIT 24.3 % (36-52); HEMOGLOBIN 7.9 g/dL (12.0-18.0); LYMPHOCYTES # (AUTO) 2.1 K/uL (2.0-11.5); LYMPHOCYTES % (AUTO) 16.4 % (20.5-51.1); MEAN CORPUSCULAR HEMOGLOBIN 28 pg (27-31); MEAN CORPUSCULAR HGB CONC 33 g/dL (33-37); MEAN CORPUSCULAR VOLUME 85.3 fL (80-94); MONOCYTES # (AUTO) 0.3 K/uL (0.8-1.0); NEUTROPHILS # (AUTO) 9.5 K/uL (1.8-7.7); NEUTROPHILS % (AUTO) 75.9 % (42.2-75.2); PLATELET COUNT (AUTO) 245 K/uL (140-450); RED BLOOD CELL COUNT(AUTO) 2.84 MIL/uL (4.20-6.10); RED CELL DISTRIBUTION WIDTH 15.1 % (11.6-13.7); WHITE BLOOD COUNT (AUTO) 12.5 K/uL (4.8-10.8)
[2019-04-09 06:27] LABS: ANION GAP 7.2 (8-16); CARBON DIOXIDE 30.8 mmol/L (21-32)
--- NOTE | 2019-04-09 06:33 | NUR ---
DR. TAVERAS IN TO SEE PATIENT, UPDATED ON CONDITIONS.
[2019-04-09] MEDS: ALBUTEROL SULFATE/IPRATROPIU 3 ML SOL IH SCH ×3 (06:34→19:43)
--- NOTE | 2019-04-09 06:34 | NUR ---
REC'D PT ON CARESCAPE VENT SETTINGS AC14 VT 500 PEEP 5 FIO2 30% ALARMS ON AND AUDIBLE AND AMBU BAG AT SIDE OF VENT AND VENT IS PLUGGED INTO RED OUTLET, I\L TX GIVEN WITH DUONEB 3ML WITH NO ADVERSE REACTION POST TX B\S ARE CLEAR BILATERALLY, SXN PT SMALL AMT OF WHITE SECRETIONS, PT IS ORALLY INTUBATED WITH 7.5 ET TUBE SECURED WITH ANCHOR FAST AT 23 CM AND SKIN INTEGRITY IS INTACT
--- NOTE | 2019-04-09 07:19 | NUR ---
RECEIVED BEDSIDE REPORT FROM SECOND MILLER RN, LINDA, FOR CONTINUITY OF CARE. PATIENT IS SEDATED WITH PROPOFOL AT 45MCG, RASS-3, DRY WEIGHT OF 69KG, OPENS EYES SPONTANEOUSLY, ABLE TO FOLLOW SIMPLE COMMANDS. PATIENT SKIN IS WARM, DRY, AFEBRILE, INTACT WITH REDNESS TO BUTTOCKS. HE HAS PICC LINE TO SATHYA, NS RUNNING AT 60ML/HR. PATIENT HAS ETT TO VENT, SETTINGS IS AC/VC MODE, RATE 14, FIO2 30%, TV 500, PEEP 5. PATIENT IS SR ON MONITOR, FLACC 0. PATIENT HAS OGT TO FEEDING, GLUCERNA AT 60ML/HR WITH 30 ML H2O FLUSH Q4H, NO RESIDUAL NOTED, COLOSTOMY BAG IN PLACE. PATIENT HAS LOUIS IN PLACE TO LIGHT EPIFANIO URINE. HE HAS RECTAL BAG IN PLACE. HOB IS 30 DEGREES, BED LOCKED, SIDE RAILS UP. SAFETY ALARMS AND PRECAUTIONS ASSESSED AND ENFORCED. NO SIGNS OF DISTRESS NOTED. WILL CONTINUE TO MONITOR
[2019-04-09] MEDS ORDERED: BLOOD GLUCOSE MONITORING 1 DEV DEV FS SCH (07:30)
--- NOTE | 2019-04-09 07:32 | NUR ---
GAVE REPORT TO MORNING SHIFT BRENNAN PARSON.
[2019-04-09] MEDS: ATORVASTATIN 20 MG TAB PO SCH (09:23)
[2019-04-09] MEDS: LACTOBACILLUS RHAMNOSUS GG 1 EACH CAP PO SCH (09:23)
[2019-04-09] MEDS: SODIUM PHOS / POTASSIUM PHOS 1 PKT PDR GT SCH ×2 (09:23→20:49)
[2019-04-09] MEDS: NICOTINE TRANSD SYS 21 MG/24 HR PATCH TD SCH (09:23)
[2019-04-09] MEDS: MULTIVITAMIN 1 TAB PO SCH (09:23)
[2019-04-09] MEDS: AMYLASE/LIPASE/PROTEASE 1 CAPDR PO SCH ×3 (09:24→17:18)
[2019-04-09] MEDS: FOLIC ACID 1 MG TAB PO SCH (09:24)
[2019-04-09] MEDS: FERROUS SULFATE 300 MG/5 ML UDC PO SCH ×2 (09:24→17:18)
[2019-04-09] MEDS: THIAMINE 100 MG TAB PO SCH (09:24)
[2019-04-09] MEDS: METOPROLOL 25 MG TAB PO SCH ×2 (09:24→20:49)
[2019-04-09] MEDS: ASCORBIC ACID 500 MG TAB PO SCH (09:24)
[2019-04-09] MEDS: FUROSEMIDE 20 MG/2 ML VIAL IVP SCH ×2 (09:25→17:18)
[2019-04-09] MEDS: METOCLOPRAMIDE 10 MG/2 ML INJ VIAL IVP SCH ×2 (09:25→20:50)
--- NOTE | 2019-04-09 09:42 | NUR ---
DR. MAYES IN TO SEE PATIENT, UPDATED ON PATIENT'S CONDITION
[2019-04-09] MEDS: FAMOTIDINE 20 MG/2 ML VIAL IV SCH (10:20)
[2019-04-09] MEDS: NACL 0.9% 1,000 ML IV SCH (12:41)
--- NOTE | 2019-04-09 14:12 | NUR ---
SEDATION VACATION STARTED, NO SIGNS OF DISTRESS, WILL CONTINUE TO MONITOR
--- NOTE | 2019-04-09 14:30 | NUR ---
DR. TAVERAS IN TO SEE PATIENT, SPOKE WITH PATIENT REGARDING CT OF ABDOMEN/PELVIS WITH CONTRAST, HOWEVER PATIENT REFUSE CT WITH CONTRAST AT THIS TIME.
--- NOTE | 2019-04-09 15:37 | NUR ---
PT BACK ON AC MODE FAILED CPAP TRIAL AND EB STOKES NOTIFIED PT APNEIC
--- NOTE | 2019-04-09 17:39 | NUR ---
DR. DAVENPORT IS HERE TO SEE PATIENT, UPDATED ON PATIENT'S CONDITION. STATES TO TURN OFF SEDATION TOMORROW MORNING, START CPAP TRIAL, ORDER CHEST XRAY AND ABG, CALL DR. DAVENPORT WITH RESULTS.
--- NOTE | 2019-04-09 19:11 | NUR ---
ENDORSED CONTINUITY OF CARE TO ADOLESCENT COUNSELOR RNALTHEA. NO SIGNS OF DISTRESS NOTED.
--- NOTE | 2019-04-09 19:30 | NUR ---
RECEIVED REPORT FROM MORNING RN, BRENNAN, FOR CONTINUITY OF CARE. VS STABLE AT THIS TIME. FLACC 0. RASS -3. AFEBRILE. PT DOES NOT APPEAR TO BE EXPERIENCING ANY DISCOMFORT AT THIS TIME. PERRL. PT SEDATED WITH PROPOFOL DRIP. DRY WT 69 KG. PROPOFOL RUNNING AT 45MCG/KG/MIN. LUNG SOUNDS CLEAR. NO COUGH NOTED. S1+S2 HEARD. SR ON MONITOR. PULSES PALPABLE IN ALL EXTREMITIES. NO JVD. ABDOMEN ROUND, SOFT AND NONDISTENDED. OGT IN PLACE. NO RESIDUAL ASPIRATED. OGT SECURE IN PLACE. GLUCERNA RUNNING AT 60ML/HR. RECTAL BAG IN PLACE. CURRENTLY NO OUTPUT NOTED. LOUIS CATHETER IN PLACE DRAINING CLEAR AND YELLOW URINE. PT HAS SATHYA PICC LINE. DRESSING DUE TO BE CHANGED. PT HAS NS RUNNING AT 60ML/HR. IV LINE IS PATENT, INTACT AND ASYMPTOMATIC. SCDS IN PLACE. PT ON RESTRAINTS. HOB AT 30 DEGREES. ALL SAFETY PRECAUTIONS ARE IN PLACE. WILL CONTINUE TO MONITOR PT.
--- NOTE | 2019-04-09 19:30 | NUR ---
ETT TO VENT WITH SETTINGS: FIO2 30%, TV500, RATE 14, AND PEEP 5
--- NOTE | 2019-04-09 19:55 | NUR ---
RECEIVED PATIENT ENDOTRACHEALLY INTUBATED WITH 7.5 ETT AT 23 CM AT GUM LINE TO MECHANICAL VENTILATOR ON SETTINGS: AC/VC 500, 14, +5, 30%. VENT CHECK DONE. VENT ALARMS ON AND AUDIBLE. VENT PLUGGED INTO RED OUTLET. AMBU BAG AT BEDSIDE. AIRWAY SECURE AND PATENT. SUCTIONED SMALL AMOUNT OF THICK, PALE YELLOW SECRETIONS. SCHEDULED BREATHING TREATMENT ADMINISTERED. TOLERATED TX WELL, NO ADVERSE SIDE EFFECTS. NO ACUTE RESPIRATORY DISTRESS NOTED AT THIS TIME. WILL CONTINUE TO MONITOR.
[2019-04-09] MEDS: MIRTAZAPINE 15 MG TAB PO SCH (20:50)
--- NOTE | 2019-04-09 21:04 | NUR ---
DR. SOLIS AND DR. APARICIO AT BEDSIDE AT THIS TIME. UPDATED DR. SOLIS REGARDING PT'S CONDITION. RECEIVED NO NEW ORDERS AT THIS TIME.
--- NOTE | 2019-04-09 23:32 | NUR ---
CURRENTLY NO CHANGE IN PT'S CONDITION. SR ON MONITOR. PT DOES NOT APPEAR TO BE EXPERIENCING ANY DISCOMFORT AT THIS TIME. RESPIRATIONS ARE EVEN AND UNLABORED. OXYGEN SATURATION AT 100%. GREEN AND LIQUID STOOL NOTED ON RECTAL BAG.
[2019-04-10] VITALS (46 sets, daily range): BP systolic 88–160; BP diastolic 58–104
[2019-04-10] MEDS: PROPOFOL 1000 MG/100 ML PREMIX 100 ML IV PRN ×2 (00:15→03:34)
[2019-04-10] MEDS: BLOOD GLUCOSE MONITORING 1 DEV DEV FS SCH ×5 (00:37→21:09)
[2019-04-10] MEDS: INSULIN LISPRO SLIDING SCALE 100 UNITS/ML VIAL SUBQ PRN ×4 (00:38→21:17)
[2019-04-10] MEDS: HYDRAGUARD CREAM TP SCH ×2 (00:39→12:15)
[2019-04-10] MEDS: Z-GUARD PASTE TP SCH ×2 (00:39→12:15)
--- NOTE | 2019-04-10 02:24 | NUR ---
VS REMAINS STABLE. FLACC 0. RASS -3. RESPIRATIONS EVEN AND UNLABORED. CHEST RISE SYMMETRIC. NO RESIDUAL ASPIRATED FROM OGT. FEEDING STILL RUNNING AT THE SAME RATE. PT DOES NOT APPEAR TO BE EXPERIENCING ANY DISCOMFORT AT THIS TIME. WILL CONTINUE TO MONITOR PT.
--- NOTE | 2019-04-10 03:55 | NUR ---
CALLED [facility]. SPOKE WITH DR. APARICIO; INFORMED HER THAT THERE ARE NO LABS ORDERED FOR PT THIS AM AND RESTRAINTS ORDER NEEDS TO BE RENEWED.
--- NOTE | 2019-04-10 04:20 | NUR ---
RECTAL BAG NOTED TO HAVE LEAKED ALL OVER THE BED. MORNING CARE PROVIDED TO PT. RECTAL BAG CHANGED. PT TOLERATED BEING TURNED AND REPOSITIONED FAIRLY. RESPIRATIONS EVEN AND UNLABORED. SR ON MONITOR. VS REMAINS STABLE. FLACC 0. RASS -3. WILL CONTINUE TO MONITOR PT.
[2019-04-10] MEDS: MEROPENEM 500 MG in NACL 0.9% 50 ML IV SCH ×3 (05:20→20:18)
[2019-04-10] MEDS: NACL 0.9% 1,000 ML IV SCH (05:21)
--- NOTE | 2019-04-10 06:35 | NUR ---
DR. TAVERAS AT BEDSIDE. INFORMED HER REGARDING CHANGES OVERNIGHT. WILL FOLLOW-UP WITH ANY NEW ORDERS.
--- NOTE | 2019-04-10 07:15 | NUR ---
REPORT GIVEN TO MORNING RN, SKYE/KRISTAL, FOR CONTINUITY OF CARE. VS STABLE AT THIS TIME.
--- NOTE | 2019-04-10 07:30 | NUR ---
RECEIVED REPORT FROM ROCKET ENGINE COMPONENT MECHANIC RN. PT IS SEDATED, RASS -3. FLACC 0. AFEBRILE. NORMAL SINUS RHYTHM ON MONITOR. ON ETT TO VENT W/ SETTINGS: AC/VC FIO2 30% TV 500 RR 14 PEEP 5. BREATHING EVEN AND UNLABORED. LUNGS CLEAR BILATERALLY. OG TUBE IN PLACE, PLACEMENT CONFIRMED. ON TF GLUCERNA 1.2 AT 60 ML/HR, NO RESIDUALS NOTED. ABDOMEN SOFT, ROUND AND NON-TENDER W/ACTIVE BOWEL SOUNDS. SATHYA PICC LINE ASYMPTOMATIC, PATENT, INTACT W/ GOOD BLOOD RETURNS, INFUSING NS AT 60 ML/HR, PROPOFOL DRIP AT 50 MCG/KG/MIN (DRY WEIGHT 69 KG). LOUIS CATH IN PLACE DRAINING LIGHT YELLOW URINE TO GRAVITY. RECTAL BAG IN PLACE, NO LEAKING, NO STOOL NOTED AT THIS TIME. SCROTAL EDEMA NOTED. BL UPPER EXTREMITIES EDEMATOUS. SKIN IS DRY AND WARM TO TOUCH. HOB 30 DEGREES, BED IN LOWEST POSITION LOCKED, CALL LIGHT WITHIN REACH. WILL CONTINUE TO MONITOR.
--- NOTE | 2019-04-10 08:00 | NUR ---
DR. CUNNINGHAM AND RESIDENT GROUP IN TO SEE PT. DR. TAVERAS AWARE OF PT'S LOW URINE OUTPUT 100 ML DURING THE GLEASON OPERATOR. WILL FOLLOW UP ON ORDERS.
[2019-04-10] MEDS: ALBUTEROL SULFATE/IPRATROPIU 3 ML SOL IH SCH ×3 (08:02→19:46)
--- NOTE | 2019-04-10 08:12 | NUR ---
PROPOFOL HELD, SEDATION VACATION STARTED BEFORE CPAP TRIAL.
--- NOTE | 2019-04-10 08:12 | NUR ---
SEDATION VACATION STARTED BY RN MAVIS AT 0805 PT IS STILL NOT ALERT. RN AT BEDSIDE. WILL CONTINUE TO MONITOR.
[2019-04-10] MEDS: AMYLASE/LIPASE/PROTEASE 1 CAPDR PO SCH ×3 (08:29→16:31)
[2019-04-10] MEDS: FAMOTIDINE 20 MG/2 ML VIAL IV SCH (08:30)
[2019-04-10] MEDS: SODIUM PHOS / POTASSIUM PHOS 1 PKT PDR GT SCH (08:30)
[2019-04-10] MEDS: LACTOBACILLUS RHAMNOSUS GG 1 EACH CAP PO SCH (08:30)
--- NOTE | 2019-04-10 08:30 | NUR ---
PT STARTED CPAP. RN ROTANA AND RT AT BEDSIDE. PT IS AWAKE AND ALERT. NO SOB OR DISTRESS NOTED. AMBU BAG AT BEDSIDE. WILL CONTINUE TO MONITOR.
--- NOTE | 2019-04-10 08:30 | NUR ---
MEDICATIONS ADMINISTERED ORDERED. PT TOLERATED WELL.
[2019-04-10] MEDS: METOCLOPRAMIDE 10 MG/2 ML INJ VIAL IVP SCH ×2 (08:31→20:18)
[2019-04-10] MEDS: THIAMINE 100 MG TAB PO SCH (08:31)
[2019-04-10] MEDS: ASCORBIC ACID 500 MG TAB PO SCH (08:31)
[2019-04-10] MEDS: MULTIVITAMIN 1 TAB PO SCH (08:31)
[2019-04-10] MEDS: FERROUS SULFATE 300 MG/5 ML UDC PO SCH ×2 (08:31→16:31)
[2019-04-10] MEDS: FUROSEMIDE 20 MG/2 ML VIAL IVP SCH ×2 (08:31→16:38)
[2019-04-10] MEDS: ATORVASTATIN 20 MG TAB PO SCH (08:32)
[2019-04-10] MEDS: NICOTINE TRANSD SYS 21 MG/24 HR PATCH TD SCH (08:32)
[2019-04-10] MEDS: METOPROLOL 25 MG TAB PO SCH ×2 (08:32→21:17)
[2019-04-10] MEDS: FOLIC ACID 1 MG TAB PO SCH (08:32)
[2019-04-10 08:50] LABS: BASOPHILS # (AUTO) 0.2 K/uL (0.00-0.22); BASOPHILS % (AUTO) 1.1 % (0.0-2.0); EOSINOPHILS # (AUTO) 0.6 K/uL (0-0.4); EOSINOPHILS % (AUTO) 4.4 % (0.0-4.0); HEMATOCRIT 24.1 % (36-52); HEMOGLOBIN 7.8 g/dL (12.0-18.0); LYMPHOCYTES # (AUTO) 2.4 K/uL (2.0-11.5); LYMPHOCYTES % (AUTO) 16.9 % (20.5-51.1); MEAN CORPUSCULAR HEMOGLOBIN 28 pg (27-31); MEAN CORPUSCULAR HGB CONC 33 g/dL (33-37); MEAN CORPUSCULAR VOLUME 85.1 fL (80-94); MONOCYTES # (AUTO) 0.4 K/uL (0.8-1.0); MONOCYTES % (AUTO) 3.1 % (1.7-9.3); NEUTROPHILS # (AUTO) 10.6 K/uL (1.8-7.7); NEUTROPHILS % (AUTO) 74.5 % (42.2-75.2); PLATELET COUNT (AUTO) 347 K/uL (140-450); RED BLOOD CELL COUNT(AUTO) 2.83 MIL/uL (4.20-6.10); RED CELL DISTRIBUTION WIDTH 15.4 % (11.6-13.7); WHITE BLOOD COUNT (AUTO) 14.2 K/uL (4.8-10.8)
--- NOTE | 2019-04-10 09:45 | NUR ---
PAGED MD DAVENPORT FOR ABG RESULTS AND TO UPDATE HIM ON PT STATUS. WAITING FOR CALL BACK. PT STILL ON CPAP TOLERATING OKAY NO DISTRESS NOTED. MONITORING PT.
[2019-04-10 09:48] LABS: ANION GAP 6.8 (8-16); CARBON DIOXIDE 33.2 mmol/L (21-32)
[2019-04-10 09:49] LABS: CREATININE 0.6 mg/dL (0.7-1.3)
[2019-04-10 09:51] LABS: MAGNESIUM 1.6 mg/dL (1.8-2.4); PHOSPHORUS 2.4 mg/dL (2.5-4.9)
--- NOTE | 2019-04-10 10:02 | NUR ---
PT IS AWAKE, ALERT AND ORIENTED, PULLED OUT ET TUBE AND OGT DUE TO DISCOMFORT. RT AT BEDSIDE, DR. DAVENPORT MADE AWARE BY RT. PT WAS PUT ON O2 VIA OXYMIZER AT 6 LPM BY RT. NO S/SX OF RESPIRATORY DISTRESS NOTED AT THIS TIME. WILL CONTINUE TO MONITOR. Addendum: 04/10/19 at 1037 by Anthony Mendes RN O2 VIA NASAL CANULA AT 3 L/MIN
--- NOTE | 2019-04-10 10:10 | NUR ---
DR. TAVERAS AT BEDSIDE, MADE AWARE OF PT'S SELF EXTUBATION AND PULLING OUT OGT. PER DR. TAVERAS, NO NEED TO RE-INSERT NGT/OGT, WILL ORDER SWALLOW EVAL. WILL FOLLOW UP AND CONTINUE TO MONITOR.
[2019-04-10] MEDS: DEXT 5% / NACL 0.45% 500 ML IV SCH ×2 (10:25→23:00)
--- NOTE | 2019-04-10 10:27 | NUR ---
PT EXTUBATED HIMSELF AT 1002. MD DAVENPORT AWARE OF PT STATUS, AND ABG. PER MD DAVENPORT TO REPEAT ABG AFTER AN HOUR. WILL FOLLOW WITH ORDER. PT IS AWAKE AND ALERT. NO DISTRES NOTED. PER MD DAVENPORT TO PLACE PT ON HIGH FLOW. WORKING ON THAT. PLACED PT ON 3 L NC IN MEAN TIME. MD TAVERAS AND RN RINA AT BEDSIDE. MD ASSESSING PT. NO NEW ORDERS FROM MD TAVERAS. WILL CONTINUE TO MONITOR PT.
--- NOTE | 2019-04-10 10:30 | NUR ---
PLACED PT ON HIGH FLOW PER MD DAVENPORT ORDER. PT AWAKE AND ALERT. TALKING AND FOLLOWING COMMANDS. NO SOB OR DISTRESS NOTED. WILL CONTINUE TO MONITOR .
[2019-04-10] MEDS ORDERED: MAG SULF 2000 MG/WATER PREMIX 50 ML IV SCH (11:00)
--- NOTE | 2019-04-10 11:50 | NUR ---
CALLED DR. TAVERAS REGARDING SCHEDULED PO MEDICATION. SWALLOW EVAL PENDING. PT DOES NOT HAVE OGT/NGT AT THIS TIME. PER DR. TAVERAS, INSERT NGT FOR MEDS. ORDER NOTED AND WILL CARRY OUT.
--- NOTE | 2019-04-10 11:50 | NUR ---
ABG DONE ON HIGH FLOW WITH NO INCIDENT. PAGED MD DAVENPORT FOR RESULTS. WAITING FOR CALL BACK. NO DISTRESS OR SOB. WILL CONTINUE TO MONITOR PT.
--- NOTE | 2019-04-10 12:00 | NUR ---
PT REFUSED NGT INSERTION. PER DR. TAVERAS, WAIT FOR SWALLOW EVAL AND HOLD PO MEDS AT THIS TIME.
--- NOTE | 2019-04-10 14:15 | NUR ---
BACK FROM RADIOLOGY DEPARTMENT AFTER CT ABDOMEN/PELVIS W/ CONTRAST DONE. PT TOLERATED WELL. VITAL SIGNS STABLE. BED IN LOWEST POSITION LOCKED. SAFETY PRECAUTIONS IN PLACE. WILL CONTINUE TO MONITOR.
--- NOTE | 2019-04-10 14:20 | NUR ---
RT TO PUT PT BACK ON HIGH FLOW BUT PT REFUSED, STATING THAT NASAL CANNULA IS MORE COMFORTABLE. SPO2 100% AND RR 18 ON NASAL CANNULA AT 3 L/MIN. NO SOB OR OTHER SIGNS OF RESPIRATORY DISTRESS NOTED. BREATHING EVEN AND UNLABORED. NO C/O CHEST PAIN OR DISCOMFORT. VSS. WILL CONTINUE TO MONITOR.
--- NOTE | 2019-04-10 14:21 | NUR ---
PT WENT TO CT ON 3L NC. NO SOB OR DISTRESS NOTED. SPO2 100%. PT BACK FROM CT AND REFUSED TO WEAR HIGH FLOW CANNULA. EXPLAINED TO PT IMPORTANCE OF HIGH FLOW BUT PT STILL DOES NOT WANT TO WEAR IT. PT ON 3L NC. NO SOB OR DISTRESS NOTED. RR 16. AMBU BAG AT BEDSIDE. HIGH FLOW AT BEDSIDE. WILL CONTINUE TO MONITOR.
--- NOTE | 2019-04-10 14:30 | NUR ---
CALLED THERAPY DEPARTMENT TO FOLLOW UP FOR SWALLOW EVAL. SPEECH THERAPIST WILL ARRIVE AROUND 6 PM. PATIENT MADE AWARE.
--- NOTE | 2019-04-10 14:44 | NUR ---
04/10/19 RD FOLLOW UP COMPLETED PLEASE REFER TO NUTRITION ASSESSMENT UNDER CARE ACTIVITY FOR ESTIMATED NUTRITIONAL NEEDS. 1. RECOMMEND CCHO 60 DIET WITH TEXTURE RECOMMENDED BY SWALLOW EVALUATION 2. RECOMMEND GLUCERNA TID WITH LIQUID CONSISTENCY RECOMMENDED BY SWALLOW EVALUATION 3. ENCOURAGE PO INTAKE IF PT PASS SWALLOW EVALUATION 4. HONOR PT FOOD PREFERENCE 5. RD TO FOLLOW-UP 2-3 DAYS, HIGH RISK EULALIO YANES, RD
--- NOTE | 2019-04-10 15:15 | NUR ---
PT SEEN AND EXAMINED BY DR. MAYES. WILL FOLLOW UP ON ORDERS.
--- NOTE | 2019-04-10 17:30 | NUR ---
NO CHANGE IN CONDITION AT THIS TIME. PT IS AWAKE, AAOX4, WATCHING TV, COOPERATIVE, ABLE TO MAKE NEEDS KNOWN AND FOLLOWS COMMANDS. VSS. NO SIGNS OF ACUTE DISTRESS NOTED. ALL SAFETY PRECAUTIONS IN PLACE. WILL CONTINUE TO MONITOR.
--- NOTE | 2019-04-10 17:53 | NUR ---
* ST PVE NOTE * Clinician in to potentially evaluate pt. Upon reviewing pt's hx, clinician observing pt self-extubated at 10:00 today. Clinician thus calling unit and informing nsg she will return next day to abide by protocol of waiting 24 hours s/p extubation to complete swallow evaluation. Nsg reporting pt is alert and has been requesting food. Pt and nsg education completed re: safety protocol of waiting 24 hours s/p extubation to complete bedside swallow evaluation 2/2 to increased risks of choking, aspiration and silent aspiration when completing therapeutic feeding trials immediately after extubation d/t trauma to vocal folds, and clinician being unable to differentially diagnose whether it is a true dysphagia or merely side effects of extubation, w/nsg verbalizing understanding. Clinician to return next day to re-attempt swallow evaluation 24 hours s/p self-extubation, w/nsg made aware. PVE
--- NOTE | 2019-04-10 17:55 | NUR ---
PER DR. JOSEPH, OK TO DO BEDSIDE SWALLOW EVALUATION BY RN AT THIS TIME. PT WILL HAVE ANOTHER SWALLOW EVAL BY SPEECH THERAPIST TOMORROW. CHARGE NURSE AND PRIMARY NURSE AT BEDSIDE AND DID SWALLOW EVALUATION. PT AWAKE, ALERT AND ORIENTED, FOLLOWS COMMANDS, ABLE TO MAKE NEEDS KNOWN, SPEECH CLEAR. ABLE TO SWALLOW APPLE SAUCE, PUDDING AND APPLE JUICE, NO COUGHING NOTED. HOB KEPT ELEVATED. NO S/SX OF ACUTE DISTRESS. DR. JOSEPH MADE AWARE.
--- NOTE | 2019-04-10 18:55 | NUR ---
DR. VELOZ IN TO SEE AND EXAMINE PT. UPDATES GIVEN ON PT'S CONDITION. WILL FOLLOW UP ON ORDERS.
--- NOTE | 2019-04-10 19:22 | NUR ---
REPORT GIVEN TO ACCOUNT ASSOCIATE RN FOR CONTINUITY OF CARE. PT IS IN STABLE CONDITION.
--- NOTE | 2019-04-10 19:45 | NUR ---
RECEIVED BEDSIDE REPORT FROM MORNING SHIFT RNSKYE. PT IS AWAKE, AAOX4, COOPERATIVE. DENIES PAIN/NAUSEA. SR ON DIRECTOR OF EMERGENCY NURSING, BP 98/61, HR 91, RR=16, SATING 100%, TEMP 98.0. LUNG SOUNDS CRACKLES/COASE ON BILATERAL UPPER/LOBES. RT CAIN AT BEDSIDE ADMINISTERING BREATHING TREATMENT AT THIS TIME. ON PUREE DIET, RN AT BEDSIDE TO ASSIST AND OBSERVE PT ABLE TOLERATE EATING AT THIS TIME. ROD ANY PAIN OR IRRITATION WITH SWALLOWING. BOWEL SOUNDS ACTIVE X4. PT HAS RECTAL BAG, BROWN/WATERY STOOL NOTED. PT LOUIS IN PLACE. PT HAS SATHYA PICC LINE, INFUSING D51/2 NS AT 40CC/HR. HOB ELEVATED, STANDARD PRECAUTIONS, ABLE TO REPOSITION SELF IN BED. PT HAS GLASSES AND CELLPHONE IN POSSESSION AT THIS TIME.
--- NOTE | 2019-04-10 19:58 | NUR ---
RECEIVED PATIENT ON 3L NASAL CANNULA, PULSE OX SAT 99%. SCHEDULED BREATHING TREATMENT ADMINISTERED. TOLERATED TX WELL WITHOUT ADVERSE SIDE EFFECTS. NO RESPIRATORY DISTRESS NOTED AT THIS TIME. WILL CONTINUE TO MONITOR.
[2019-04-10] MEDS: SODIUM PHOS / POTASSIUM PHOS 1 PKT PDR PO SCH (20:19)
[2019-04-10] MEDS: MIRTAZAPINE 15 MG TAB PO SCH (20:19)
--- NOTE | 2019-04-10 20:35 | NUR ---
PT ABLE TO TOLERATE PO MEDS, APPLESAUCE, AND THICKENED WATER. ON 3L NASAL CANNULA AT THIS TIME, SATING AT 100%, RR=16.
--- NOTE | 2019-04-10 21:36 | NUR ---
DR. SOLIS AT BEDSIDE TO SEE PATIENT, UPDATED ON PT CONDITION.
--- NOTE | 2019-04-10 23:16 | NUR ---
EAR PLUG PROVIDED PER PATIENT REQUEST AND STATED THEY ARE EFFECTIVE IN REDUCING NOISE AT THIS TIME. PT TOLERATED THICKENED WATER OK, NO SIGNS OF ASPIRATION PT DENIES DIFFICULY SWALLOWING.
[2019-04-11] VITALS (9 sets, daily range): BP systolic 98–138; BP diastolic 66–88
[2019-04-11] MEDS: HYDRAGUARD CREAM TP SCH ×2 (00:30→13:23)
[2019-04-11] MEDS: Z-GUARD PASTE TP SCH ×2 (01:44→13:23)
--- NOTE | 2019-04-11 01:44 | NUR ---
PT AWAKE AT THIS TIME, ABLE TO REPOSITION HIMSELF IN BED. REDNESS ON SCROTUM, RECTAL BAG IN TACT. DENIES PAIN AT THIS TIME.
[2019-04-11] MEDS: fentaNYL 0.05 MG/ML VIAL IVP PRN (02:34)
--- NOTE | 2019-04-11 02:48 | NUR ---
PT AWAKE, WITH COMPLAINTS OF HARDY AT INNER RIGHT THIGH. PT REPOSITIONED AND IVP FENTANYL GIVEN AT THIS TIME. PT RATES PAIN 10/10.
--- NOTE | 2019-04-11 04:45 | NUR ---
LAURA FROM LAB AT BEDSIDE, RN COMPLETED BLOOD DRAW FROM SATHYA PICC LINE, SALINE FLUSHED WITH ADEQUATE BLOOD RETURN. PT AWAKE AND COOPERATIVE, INDEPENDENTLY REPOSITIONS SELF IN BED. VSS.
[2019-04-11] MEDS: MEROPENEM 500 MG in NACL 0.9% 50 ML IV SCH ×3 (04:59→20:19)
--- NOTE | 2019-04-11 05:15 | NUR ---
PT IS AAXO4, RECTAL BAG REMOVED. URINE OUTPUT OF 400ML AND RECTAL BAG 75ML QSHIFT. ZGUARD APPLIED TO COCCYX AREA/INCONTINENT DERMATITIS. DRESSING REMAINS INTACT, REDNESS/OPEN WOUND, NO DRAINAGE NOTED. Addendum: 04/11/19 at 0553 by Yudith Moon RN STOOL WAS MUSHY/WATERY, BROWN/YELLOW IN COLOR.
[2019-04-11 06:28] LABS: ANION GAP 7.5 (8-16); CARBON DIOXIDE 31.5 mmol/L (21-32); CREATININE 0.5 mg/dL (0.7-1.3)
[2019-04-11 06:29] LABS: PHOSPHORUS 3.4 mg/dL (2.5-4.9)
[2019-04-11 06:52] LABS: BASOPHILS # (AUTO) 0.1 K/uL (0.00-0.22); BASOPHILS % (AUTO) 1.2 % (0.0-2.0); EOSINOPHILS # (AUTO) 0.1 K/uL (0-0.4); HEMATOCRIT 24.3 % (36-52); LYMPHOCYTES # (AUTO) 1.7 K/uL (2.0-11.5); MEAN CORPUSCULAR HEMOGLOBIN 28 pg (27-31); MEAN CORPUSCULAR HGB CONC 33 g/dL (33-37); MEAN CORPUSCULAR VOLUME 85.3 fL (80-94); MONOCYTES # (AUTO) 0.3 K/uL (0.8-1.0); NEUTROPHILS # (AUTO) 8.5 K/uL (1.8-7.7); NEUTROPHILS % (AUTO) 78.8 % (42.2-75.2); PLATELET COUNT (AUTO) 318 K/uL (140-450); RED BLOOD CELL COUNT(AUTO) 2.84 MIL/uL (4.20-6.10); RED CELL DISTRIBUTION WIDTH 15.1 % (11.6-13.7); WHITE BLOOD COUNT (AUTO) 10.8 K/uL (4.8-10.8)
[2019-04-11] MEDS: BLOOD GLUCOSE MONITORING 1 DEV DEV FS SCH ×4 (07:31→20:01)
--- NOTE | 2019-04-11 07:31 | NUR ---
GAVE BEDSIDE REPORT TO MORNING SHIFT CONSTANTINO PARSON.
[2019-04-11] MEDS: ALBUTEROL SULFATE/IPRATROPIU 3 ML SOL IH SCH ×3 (07:49→20:02)
--- NOTE | 2019-04-11 08:00 | NUR ---
PATIENT ALERT ORIENTED TO SELF, PLACE , SITUATION, FORGETFUL TO TIME, ON NASAL CANNULA O2 3L/MIN, RESPIRATIONS EQUAL AND EVEN, SOFT ABDOMEN, LOUIS CATHETER YELLOW URINE NOTED, RIGHT UPPER ARM PICC LINE WITH SITE ASYMPTOMATIC ONGOING IV D5 HALF NS AT 40 ML/HR., SKIN EXCORIATION IN BOTH INGUINAL AND RECTAL AREA PRESSURE IN SACRAL AREA
[2019-04-11] MEDS: METOCLOPRAMIDE 10 MG/2 ML INJ VIAL IVP SCH ×2 (08:24→20:17)
[2019-04-11] MEDS: FERROUS SULFATE 300 MG/5 ML UDC PO SCH ×2 (08:24→16:14)
[2019-04-11] MEDS: LACTOBACILLUS RHAMNOSUS GG 1 EACH CAP PO SCH (08:24)
[2019-04-11] MEDS: FUROSEMIDE 20 MG/2 ML VIAL IVP SCH ×2 (08:25→16:15)
[2019-04-11] MEDS: MULTIVITAMIN 1 TAB PO SCH (08:25)
[2019-04-11] MEDS: FOLIC ACID 1 MG TAB PO SCH (08:25)
[2019-04-11] MEDS: ASCORBIC ACID 500 MG TAB PO SCH (08:26)
[2019-04-11] MEDS: THIAMINE 100 MG TAB PO SCH (08:26)
[2019-04-11] MEDS: ATORVASTATIN 20 MG TAB PO SCH (08:27)
[2019-04-11] MEDS: AMYLASE/LIPASE/PROTEASE 1 CAPDR PO SCH ×3 (08:29→16:14)
[2019-04-11] MEDS: SODIUM PHOS / POTASSIUM PHOS 1 PKT PDR PO SCH ×2 (08:30→20:15)
[2019-04-11] MEDS: NICOTINE TRANSD SYS 21 MG/24 HR PATCH TD SCH (08:30)
[2019-04-11] MEDS: FAMOTIDINE 20 MG/2 ML VIAL IV SCH (08:53)
[2019-04-11] MEDS: METOPROLOL 25 MG TAB PO SCH ×2 (08:53→20:13)
--- NOTE | 2019-04-11 10:15 | NUR ---
DR. AYON AT BEDSIDE AND EXPLAINED TO PATIENT HIS PLAN OF CARE.
--- NOTE | 2019-04-11 10:30 | NUR ---
PER ICU CN MAINE THAT DR. AYON SPOKE TO HER SAYING THAT HE WILL NOT BE THE ONE TO DO THE PROCEDURE I&D
--- NOTE | 2019-04-11 10:40 | NUR ---
--DC PLANNING Order for LTAC [facility], called & spoke w Xiang @ [facility], ph [phone], updated on pt status. States will review & send to Legislative Director & call me back w decision. Addendum: 04/11/19 at 1215 by Crys Aviles Received call back from radha Otooles updated pt info for last 3days, faxed pt info requested fax [phone]. Spoke w pt @ bedside & informed of oder for LTAC. Explained LTAC & informed had choices, LTAC's in area [facility], [facility]. Per pt preference [facility], agreeable w any if not accepted & [facility]. Discussed w pt SNF if LTAC not auth'd, pt agreeable w SNF does not have preference any contracted that will accept him. Ed from [facility] to lorna pt, has Xiang's @ [facility] info for auth.
--- NOTE | 2019-04-11 10:50 | NUR ---
PT AT BEDSIDE. PT ON STAND BY ASSIST, PATIENT WALKED SIDE TO SIDE NEAR BED AND TOLERATED
[2019-04-11] MEDS: INSULIN LISPRO SLIDING SCALE 100 UNITS/ML VIAL SUBQ PRN ×2 (11:17→16:16)
[2019-04-11] MEDS: DEXT 5% / NACL 0.45% 500 ML IV SCH (11:25)
--- NOTE | 2019-04-11 14:20 | NUR ---
REPORT GIVEN TO RECEIVING SEISMOGRAPH OBSERVER
--- NOTE | 2019-04-11 14:32 | NUR ---
RECEIVED PT FROM ICU NURSE, PT IS AWAKE AND WITH A RT UA PICC DOUBLE LUMEN LINE WITH D51/2 NS INFUSING AT 40ML/HR, LOUIS CATHETER , SCD AND HEEL PROTECTORS WERE PLACED. PT IS ON 3L O2 VIA NC. VITAL SIGNS TAKEN AND BP IS 15/76, O2 SATURATION IS 100%, TEMPERATURE IS 97.5, PULSE IS 82, AND RESPIRATION IS 16/MIN, NO SIGN OF DISTRESS NOTED. WILL MONITOR PT.
--- NOTE | 2019-04-11 14:55 | NUR ---
PATIENT TRANSFERRED TO TELEMETRY FLOOR VIA WHEELCHAIR WITH HIS BELONGINGS. PATIENT ALERT ORIENTEDX4, ON NASAL CANNULA O2 3L/MIN. NO DISTRESS NOTED, NO COMPLAINTS OF PAIN
--- NOTE | 2019-04-11 15:53 | NUR ---
DC PLANNING Updated Dr Lorenz waiting for [facility] to review, states will do Md to if needed for auth. Received call from Xiang @ [facility], ph [phone], Cigarette Paper Tester reviewed case & denied LTAC. Asked [facility] for Md to , states will have his Cigarette Paper Tester call Dr Lorenz.
--- NOTE | 2019-04-11 16:14 | NUR ---
BLOOD GLUCOSE CHECK DONE TO [PT AND RESULT IS 190 AND 2 UNITS INSULIN WAS GIVEN VIA ABDOMEN, ORAL MEDICATIONS WEER GIVEN AN DPT TOLERATED IT. WILL MONITOR PT.
--- NOTE | 2019-04-11 17:22 | NUR ---
* ST NOTE * Pt seen at bedside. Pt alert, cooperative and engaged throughout session, reporting c/o pain on his "behind", of which Nsg was informed. Bedside dysphagia and oral mechanism exams completed. See evaluation report for further details. Pt tolerating 4/4 alternating PO trials of regular solid saltine crackers as well as 6/6 alternating PO trials of thin liquid apple juice via a straw, all w/o s/s of aspiration or choking. Pt exhibiting clear oral cavity, w/clear voicing WFL w/o wet or gargly vocal quality. Pt, caregiver/partner and nsg education completed re: aspiration precautions and safe swallow compensatory strategies pt and caregivers could utilize to aid pt w/swallow function, w/pt, partner and nsg verbalizing understanding and agreement w/clinician's recommendations. Although pt safe to tolerate regular solids at this time, he does not have his dentures here at [facility]. Thus it is recommended pt's PO diet consistency be modified to mechanical soft textures w/thin liquids for all meals, w/strict aspiration precautions in place, w/pt and caregivers agreeable. No further ST follow up recommended at this time. Pt, partner/girlfriend, and nsg education completed re: results of evaluation; benefits of abiding by aspiration precautions and recommended PO diet consistency; and prognosis for improvement; with pt, partner, and nsg Naheed verbalizing understanding and agreement w/clinician's recommendations. Recommend: - PO DIET CONSISTENCY OF MECHANICAL SOFT TEXTURES W/THIN LIQUIDS for all meals - PO MEDICATION ADMINISTRATION CRUSHED IN APPLE SAUCE, REQUESTED BY PT - MAINTAIN STRICT ASPIRATION PRECAUTIONS DURING PT'S PO INTAKE - Pt requires assistance w/setup of tray but can self-feed thereafter - REMIND/CUE PT BEFORE AND DURING PO INTAKE TO SIT UP AT 90 DEGREE ANGLE DURING PO INTAKE, EAT/DRINK SLOWLY, ALTERNATE BTWN SOLIDS & LIQUIDS, AND TAKE SMALL BITES/SIPS - PT REQUESTING NO BUTTER, LOW SODIUM/CHOLESTEROL, AND DIABETIC DIET No further ST follow up recommended at this time.
[2019-04-11] MEDS: DEXT 5% / NACL 0.45% 1,000 ML IV SCH (18:40)
--- NOTE | 2019-04-11 19:20 | NUR ---
ENDORSED PT TO GLASS TECHNICIAN/INSTALLER NURSE, FOR CONTINUITY OF CARE.
--- NOTE | 2019-04-11 19:23 | NUR ---
RECEIVED BEDSIDE REPORT FROM CLEMENT PARSON. PT IS AAOX 4. ON 3L O2 VIA NC. RESPIRATIONS ARE EQUAL AND UNLABORED. PT WITH RUE PICC LINE DOUBLE LUMEN ON D5 1/2NS INFUSING PER ORDERS.PT WITH SACRAL PRESSURE ULCER DRESSING C/D/I. PER RN PT WITH CHRONIC DIARRHEA NEG FOR C. DIFF. FAMILY IS AT BEDSIDE. PLAN OF CARE DISCUSSED WITH PT. SAFETY MEASURES ARE IN PLACE. CALL LIGHT WITHIN REACH. WILL CONTINUE TO MONITOR.
[2019-04-11] MEDS: MIRTAZAPINE 15 MG TAB PO SCH (20:14)
--- NOTE | 2019-04-11 20:19 | NUR ---
SCHEDULED MEDICATIONS WERE GIVEN. BLOOD SUGAR 172 PT JUST FINISHED DINNER AND IS TO BE NPO AFTER MIDNIGHT SO HELD HUMALOG WILL RECHECK IN AM. CONSENT FOR I&D OF R THIGH ABSCESS OBTAINED PROCEDURE EXPLAINED TO PT ALL QUESTIONS AND CONCERNS ANSWERED RESIDENT SIGN CONSENT. WILL CONTINUE TO MONITOR.
--- NOTE | 2019-04-11 23:19 | NUR ---
VITAL SIGNS ARE WITHIN NORMAL LIMITS. ASSISTED PT WITH BEDPAN BUT NO BM. SACRAL DRESSING IS C/D/I. HYDROGUARD APPLIED TO KEON GROIN FOR INCONTINENT DERMATITIS. SAFETY MEASURES ARE IN PLACE. CALL LIGHT WITHIN REACH.
[2019-04-12] VITALS: BP 126/87
[2019-04-12] MEDS: Z-GUARD PASTE TP SCH ×2 (00:32→12:39)
[2019-04-12] MEDS: HYDRAGUARD CREAM TP SCH ×2 (00:32→12:39)
--- NOTE | 2019-04-12 02:00 | NUR ---
PATIENT IS SLEEPING COMFORTABLY IN BED. RESPIRATIONS ARE EQUAL AND UNLABORED. SAFETY MEASURES ARE IN PLACE. CALL LIGHT WITHIN REACH.
[2019-04-12 04:00] VITALS: BP 147/90
--- NOTE | 2019-04-12 04:21 | NUR ---
VITAL SIGNS ARE WITHIN NORMAL LIMITS. PT DENIES ANY PAIN. ALL NEEDS MET AT THIS TIME. CALL LIGHT WITHIN REACH. WILL CONTINUE TO MONITOR.
[2019-04-12] MEDS: MEROPENEM 500 MG in NACL 0.9% 50 ML IV SCH ×2 (04:39→12:39)
[2019-04-12] MEDS ORDERED: HYDRAGUARD CREAM TP ONE (04:45)
[2019-04-12] MEDS: BLOOD GLUCOSE MONITORING 1 DEV DEV FS SCH ×3 (06:01→16:30)
--- NOTE | 2019-04-12 06:02 | NUR ---
PATIENTS BLOOD SUGAR 165 H PT IS CURRENTLY NPO FOR SURGERY AT 0730 WILL HOLD INSULIN.
[2019-04-12 06:09] LABS: ANION GAP 6.1 (8-16); CREATININE 0.5 mg/dL (0.7-1.3); POTASSIUM 4.1 mmol/L (3.5-5.1)
[2019-04-12 06:10] LABS: BASOPHILS # (AUTO) 0.1 K/uL (0.00-0.22); BASOPHILS % (AUTO) 0.8 % (0.0-2.0); EOSINOPHILS # (AUTO) 0.2 K/uL (0-0.4); EOSINOPHILS % (AUTO) 1.5 % (0.0-4.0); HEMATOCRIT 23.5 % (36-52); HEMOGLOBIN 7.8 g/dL (12.0-18.0); LYMPHOCYTES # (AUTO) 1.7 K/uL (2.0-11.5); LYMPHOCYTES % (AUTO) 14.4 % (20.5-51.1); MEAN CORPUSCULAR HEMOGLOBIN 28 pg (27-31); MEAN CORPUSCULAR HGB CONC 33 g/dL (33-37); MEAN CORPUSCULAR VOLUME 84.1 fL (80-94); MONOCYTES # (AUTO) 0.4 K/uL (0.8-1.0); NEUTROPHILS # (AUTO) 9.5 K/uL (1.8-7.7); NEUTROPHILS % (AUTO) 80.3 % (42.2-75.2); PLATELET COUNT (AUTO) 370 K/uL (140-450); RED CELL DISTRIBUTION WIDTH 15.2 % (11.6-13.7); WHITE BLOOD COUNT (AUTO) 11.9 K/uL (4.8-10.8)
[2019-04-12 06:15] LABS: MAGNESIUM 1.6 mg/dL (1.8-2.4); PHOSPHORUS 2.9 mg/dL (2.5-4.9)
[2019-04-12] MEDS ORDERED: MAG SULF 2000 MG/WATER PREMIX 50 ML IV SCH (06:25)
--- NOTE | 2019-04-12 06:45 | NUR ---
PATIENT WITH NEW ORDER FOR MG RIDER. MG 1.6 PER DOCTOR OK TO GIVE AFTER SURGERY. PT TO HAVE I&D TODAY AT 0730. WILL ENDORSE TO DAY SHIFT RN.
[2019-04-12] MEDS: ALBUTEROL SULFATE/IPRATROPIU 3 ML SOL IH SCH ×2 (07:04→13:12)
--- NOTE | 2019-04-12 07:18 | NUR ---
RECEIVED BEDSIDE REPORT FROM EB GARCIA. PT STABLE, SLEEPING, BUT EASILY AROUSABLE. NO SIGNS OF DISTRESS NOTED. ON 3L O2 VIA NC. NO REDNESS, SWELLING, OR INFLAMMATION NOTED ON IV SITE. PT NPO AT THIS MOMENT FOR SCHEDULED I&D OF RIGHT THIGH ABSCESS. CALL GAMING WITHIN REACH. BED IN LOWEST POSITION. SAFETY MEASURES IN PLACE. PLAN OF CARE REVIEWED.
--- NOTE | 2019-04-12 07:19 | NUR ---
GAVE BEDSIDE REPORT TO LUCERO RYAN RN. PT ENDORSED IN STABLE CONDITION.
[2019-04-12] MEDS ORDERED: HYDROGEN PEROXIDE 3% 240 ML BTL TP ONE (07:36)
--- NOTE | 2019-04-12 07:40 | NUR ---
PT TAKEN TO THE OR FOR I&D OF RIGHT THIGH ABSCESS.
--- NOTE | 2019-04-12 08:00 | NUR ---
UNABLE TO TAKE 0800 VS DUE TO PT IS IN THE OR. WILL TAKE PT'S VS WHEN PT COMES BACK IN THE UNIT.
[2019-04-12] MEDS ORDERED: MIDAZOLAM 2 MG/2 ML VIAL ONE (08:10)
[2019-04-12] MEDS ORDERED: KETAMINE 500 MG/5 ML VIAL ONE (08:10)
[2019-04-12] MEDS ORDERED: HYDROmorphone 1 MG/ML AMP IVP PRN (08:15)
[2019-04-12] MEDS ORDERED: BLOOD GLUCOSE MONITORING 1 DEV DEV FS ONE (08:15)
[2019-04-12] MEDS ORDERED: ONDANSETRON 4 MG/2 ML VIAL IVP PRN (08:15)
[2019-04-12] MEDS ORDERED: BUPIVACAINE-MPF 0.25% 30 ML VIAL INJ ONE (08:16)
[2019-04-12] MEDS: FUROSEMIDE 20 MG/2 ML VIAL IVP SCH ×2 (09:00→17:00)
[2019-04-12] MEDS ORDERED: HYDROcodone/APAP 5/325 MG 1 TAB TAB PO PRN (09:00)
[2019-04-12 09:35] VITALS: BP 104/67
--- NOTE | 2019-04-12 09:35 | NUR ---
PT CAME BACK FROM OR. RECEIVED BEDSIDE REPORT FROM SAFETY GLASS INSTALLEREB CHAVEZ. PT STABLE, AWAKE, ALERT AND ORIENTED X4. NO SIGNS OF DISTRESS NOTED. VITAL SIGNS TAKEN. WILL CONTINUE TO MONITOR.
--- NOTE | 2019-04-12 09:42 | NUR ---
P.T. NOTES UNABLE TO SEE PATIENT, IN O.R. FOR I AND D RT THIGH ABSCESS, WILL SEE FOR P.T. ON NEXT SCHEDULED VISIT Addendum: 04/12/19 at 1037 by John Odonnellg PT AMENDMENT: PATIENT JUST CAME BACK FROM O.R.
[2019-04-12] MEDS: THIAMINE 100 MG TAB PO SCH (09:56)
[2019-04-12] MEDS: SODIUM PHOS / POTASSIUM PHOS 1 PKT PDR PO SCH (09:57)
[2019-04-12] MEDS: ASCORBIC ACID 500 MG TAB PO SCH (09:57)
[2019-04-12] MEDS: LACTOBACILLUS RHAMNOSUS GG 1 EACH CAP PO SCH (09:57)
[2019-04-12] MEDS: METOCLOPRAMIDE 10 MG/2 ML INJ VIAL IVP SCH (09:57)
[2019-04-12] MEDS: MULTIVITAMIN 1 TAB PO SCH (09:57)
[2019-04-12] MEDS: AMYLASE/LIPASE/PROTEASE 1 CAPDR PO SCH ×3 (09:57→18:02)
[2019-04-12] MEDS: FOLIC ACID 1 MG TAB PO SCH (09:57)
[2019-04-12] MEDS: FERROUS SULFATE 300 MG/5 ML UDC PO SCH ×2 (09:58→18:02)
[2019-04-12] MEDS: ATORVASTATIN 20 MG TAB PO SCH (09:58)
[2019-04-12] MEDS: METOPROLOL 25 MG TAB PO SCH (10:00)
[2019-04-12] MEDS: NICOTINE TRANSD SYS 21 MG/24 HR PATCH TD SCH (10:00)
--- NOTE | 2019-04-12 10:00 | NUR ---
ADMINISTERED SCHEDULED MEDICATIONS, PT TOLERATED WELL. HELD SCHEDULED METOPROLOL AND LASIX PER MD ORDER DUE TO BP IS 104/67. ADMINISTERED MAG-RIDER AFTER SURGERY PER DR TAVERAS'S ORDER. WILL CONTINUE TO MONITOR PT.
[2019-04-12] MEDS: FAMOTIDINE 20 MG/2 ML VIAL IV SCH (10:08)
--- NOTE | 2019-04-12 11:51 | NUR ---
CALLED [facility] SHAYNA [phone] VOICEMAIL STATED CURTIS IS COVERING , SPOKE WITH CURTIS STATED ANALY [phone] IS A SNF COMMUNITY OUTREACH COORDINATOR , FAXED ALL PAPER WORK TO LIA [id number] [facility]. SPOKE WITH JOJO AND SHE WILL CALL BACK
[2019-04-12 12:00] VITALS: BP 127/81
--- NOTE | 2019-04-12 12:32 | NUR ---
KWAN FROM [facility] CALLED AND PT CAN GO TO ROOM 21 .WAITING FOR AUTH FOR SNF AND TRANSPORT FROM [facility]
[2019-04-12] MEDS: INSULIN LISPRO SLIDING SCALE 100 UNITS/ML VIAL SUBQ PRN ×2 (12:39→18:01)
--- NOTE | 2019-04-12 12:45 | NUR ---
WOUND CARE CONSULT TO RIGHT THIGH S/P I&D NOT DONE, SPOKE TO DR. TAVERAS AND PRIMARY RN THAT I&D WAS DONE THIS MORNING, TOO SOON TO RE-PACK THE WOUND AND PLEASE CONTACT DR. KESSLER FOR DISCHARGE INFORMATION.
--- NOTE | 2019-04-12 12:45 | NUR ---
ADMINISTERED SCHEDULED MEDICATIONS, PT TOLERATED WELL. ADMINISTERED 2 UNITS HUMALOG FOR BG 197. WILL CONTINUE TO MONITOR PT.
[2019-04-12] MEDS: DEXT 5% / NACL 0.45% 1,000 ML IV SCH (12:50)
[2019-04-12] MEDS ORDERED: MIRT15TA4 PO (13:10)
[2019-04-12] MEDS ORDERED: HUM SUBQ (13:10)
[2019-04-12] MEDS ORDERED: VANC1PDS13 IV (13:10)
[2019-04-12] MEDS ORDERED: METO25TA PO (13:10)
[2019-04-12] MEDS ORDERED: FURO-572 PO (13:10)
[2019-04-12] MEDS ORDERED: ATOR20TA PO (13:10)
[2019-04-12] MEDS ORDERED: FAMO-90 PO (13:10)
[2019-04-12] MEDS ORDERED: INUL1CTB PO (13:11)
--- NOTE | 2019-04-12 14:21 | NUR ---
04/12/19 RD FOLLOW UP COMPLETED PLEASE REFER TO NUTRITION ASSESSMENT UNDER CARE ACTIVITY FOR ESTIMATED NUTRITIONAL NEEDS. 1. CONTINUE [facility] SOFT CCHO 60 GM DIET 2. HONOR PT�S FOOD PREFERENCES AND REQUESTS 3. ENCOURAGE PO INTAKE 4. RECOMMEND GLUCERNA TID 5. CONTINUE VITAMIN C AND THERAGRAN FOR WOUND HEALING 6. RD TO FOLLOW-UP 2-3 DAYS, HIGH RISK EULALIO YANES, RD
--- NOTE | 2019-04-12 14:30 | NUR ---
PT STABLE, SLEEPING, BUT EASILY AROUSABLE. NO SIGNS OF DISTRESS NOTED.
--- NOTE | 2019-04-12 14:57 | NUR ---
I RECEIVED THE AUTHORIZATION FROM [facility] FOR [facility] AUTH #[id number] AND FOR [facility] AUTH # [id number]. CALLED [facility] AND GEODETIC SURVEYOR TECHNOLOGIST TIME IS 1730 NOTIFIED EB RYAN. PATIENT IS GOING TO [facility] ROOM 21B THE NUMBER TO GIVE REPORT [phone].
--- NOTE | 2019-04-12 15:11 | NUR ---
SW called Brad Duenas, patient's father [phone], to inform him that patient will be going to [facility] and will be in room 21. Patient's father verbalized understanding. SW/CM will follow up as needed.
[2019-04-12 16:00] VITALS: BP 99/67
--- NOTE | 2019-04-12 16:20 | NUR ---
VITAL SIGNS TAKEN, PT STABLE. NO OTHER NEEDS AT THIS TIME.
--- NOTE | 2019-04-12 17:00 | NUR ---
LEFT A MESSAGE TO PT'S FATHER FLAKITA REGARDING PT'S TRANSFER TO [facility] TODAY.
--- NOTE | 2019-04-12 17:10 | NUR ---
GAVE REPORT TO RAMONA FROM [facility].
--- NOTE | 2019-04-12 18:00 | NUR ---
ADMINISTERED SCHEDULED MEDICATIONS AND 6 UNITS HUMALOG FOR BG 258. PT TOLERATED WELL.
--- NOTE | 2019-04-12 18:20 | NUR ---
D/C INSTRUCTIONS AND PAPERWORK GIVEN. PT VERBALIZED UNDERSTANDING. QUESTIONS AND CONCERNS WERE ADDRESSED. RIGHT UPPER ARM PICC DOUBLE LUMEN KEPT IN PLACE DUE TO PT WILL RECEIVE IV ANTIBIOTICS AT [facility]. IV SITE IS ASYMPTOMATIC, INTACT, AND PATENT. SACRAL PRESSURE DISCHARGE PHOTOGRAPH TAKEN, PNEUMONIA VACCINE AND FLU VACCINE N/A. PT IS S/P I&D ON RIGHT THIGH ABSCESS TODAY, ENDORSED TO RAMONA FROM [facility] TO DO DRESSING CHANGE TOMORROW AFTER MD HAS SEEN WOUND. PT STABLE, AAOX4, COMMUNICATES WITH STAFF APPROPRIATELY. PT TOOK ALL BELONGINGS WITH HIM. PT PICKED UP BY TO BE TAKEN TO [facility].
== END 2019-04-12 18:20 | DRG 720 ==
LOC: MED 21:25 → MTU 03-29 06:10 → MIC 04-02 02:10 → MTU 04-11 14:55
PROVIDERS: ADMIT General Practice; ATTEND General Practice
PROC: 5A09357 Assistance with Respiratory Ventilation, Less than 24 Consecutive Hours, Continuous Positive Airway Pressure (ICD-10-PCS; 2019-03-31)
PROC: 02HV33Z Insertion of Infusion Device into Superior Vena Cava, Percutaneous Approach (ICD-10-PCS; 2019-04-02)
PROC: 5A09357 Assistance with Respiratory Ventilation, Less than 24 Consecutive Hours, Continuous Positive Airway Pressure (ICD-10-PCS; 2019-04-02)
PROC: 0H9HXZX Drainage of Right Upper Leg Skin, External Approach, Diagnostic (ICD-10-PCS; 2019-04-02)
PROC: 5A12012 Performance of Cardiac Output, Single, Manual (ICD-10-PCS; 2019-04-03)
PROC: 5A1955Z Respiratory Ventilation, Greater than 96 Consecutive Hours (ICD-10-PCS; 2019-04-04)
PROC: 0BH17EZ Insertion of Endotracheal Airway into Trachea, Via Natural or Artificial Opening (ICD-10-PCS; 2019-04-04)
PROC: 30233N1 Transfusion of Nonautologous Red Blood Cells into Peripheral Vein, Percutaneous Approach (ICD-10-PCS; principal; 2019-04-07)
PROC: 0Y9C0ZZ Drainage of Right Upper Leg, Open Approach (ICD-10-PCS; 2019-04-12)
DX: A41.9 Sepsis, unspecified organism (principal); N17.0 Acute kidney failure with tubular necrosis; J96.01 Acute respiratory failure with hypoxia; E11.00 Type 2 diabetes mellitus with hyperosmolarity without nonketotic hyperglycemic-hyperosmolar coma (NKHHC); G93.41 Metabolic encephalopathy; J18.9 Pneumonia, unspecified organism; E40 Kwashiorkor; J44.0 Chronic obstructive pulmonary disease with (acute) lower respiratory infection; I46.9 Cardiac arrest, cause unspecified; E43 Unspecified severe protein-calorie malnutrition; E87.8 Other disorders of electrolyte and fluid balance, not elsewhere classified; E11.65 Type 2 diabetes mellitus with hyperglycemia; E87.1 Hypo-osmolality and hyponatremia; E11.621 Type 2 diabetes mellitus with foot ulcer; E86.0 Dehydration; F17.210 Nicotine dependence, cigarettes, uncomplicated; F32.9 Major depressive disorder, single episode, unspecified; I10 Essential (primary) hypertension; I87.8 Other specified disorders of veins; K68.12 Psoas muscle abscess; L97.509 Non-pressure chronic ulcer of other part of unspecified foot with unspecified severity; R13.11 Dysphagia, oral phase; R18.8 Other ascites; G89.29 Other chronic pain; D47.3 Essential (hemorrhagic) thrombocythemia; E83.42 Hypomagnesemia; E83.51 Hypocalcemia; K52.9 Noninfective gastroenteritis and colitis, unspecified; E78.2 Mixed hyperlipidemia; D63.8 Anemia in other chronic diseases classified elsewhere; E87.6 Hypokalemia; B95.4 Other streptococcus as the cause of diseases classified elsewhere; L02.415 Cutaneous abscess of right lower limb; Z53.29 Procedure and treatment not carried out because of patient's decision for other reasons; Z68.26 Body mass index [BMI] 26.0-26.9, adult; Z88.0 Allergy status to penicillin; Z91.19 Patient's noncompliance with other medical treatment and regimen; Z79.899 Other long term (current) drug therapy; Z88.1 Allergy status to other antibiotic agents; Z88.8 Allergy status to other drugs, medicaments and biological substances; Z90.49 Acquired absence of other specified parts of digestive tract
CPT/HCPCS: 31500; 36415; 36600; 71045; 71260; 71275; 73560; 76604; 76705; 76881; 76942; 80048; 80053; 80202; 80305; 81001; 82150; 82272; 82607; 82728; 82746; 82803; 82948; 83036; 83540; 83605; 83690; 83735; 83880; 84100; 84134; 84436; 84443; 84484; 85025; 85045; 85610; 85730; 86886; 86900; 86901; 86920; 87040; 87045; 87070; 87075; 87081; 87086; 87186; 87205; 88305; 89055; 89220; 92610; 92950; 93005; 93925; 93970; 94002; 94003; 94640; 94660; 96361; 96374; 96375; 97116; 97161-GP; 97530; 99285; J0171; J0360; J1644; J1815; J1940; J1956; J2060; J2185; J2250; J2270; J2405; J2704; J2765; J2916; J3010; J3370; J3475; J3480; J3490; J7030; J7042; J7620; P9016; Q0092; Q0163; Q9967